=== PATIENT | female | born 1955 | race Caucasian/White ===

== ENCOUNTER → 2016-10-20 | Outpatient (CLI) | payer BC ==
--- NOTE | 2016-10-20 12:14 | MY ---
EXAMINATION: Bilateral digital mammography utilizing CAD. HISTORY: Screening exam. Comparison is made to previous studies dated 09/15/2015, 09/08/2014. FINDINGS: Bilateral scattered fibroglandular densities. No suspicious calcifications, masses or architectural distortions. No pathologic appearing lymph nodes, no abnormal skin thickening or nipple inversion. CAD highlighted regions appear normal at this time. IMPRESSION: BI-RADS category I - negative mammogram. Continued screening according to ACR-ACS guidelines sugg maximilian. THE FALSE-NEGATIVE RATE OF MAMMOGRAM IS APPROXIMATELY 10%. MANAGEMENT OF A PALPABLE ABNORMALITY MUST BE BASED UPON CLINICAL GROUNDS. SENSITIVITY FOR DETECTION OF ABNORMALITIES IN DENSE BREASTS IS LOW. NOTE: A letter will be sent to the patient regarding findings. [facility] -- [place] [phone] - FAX [phone]
== END ==
LOC: MW.MAM 08:44
PROVIDERS: ATTEND Student in an Organized Health Care Education/Training Program
DX: Z12.31 Encounter for screening mammogram for malignant neoplasm of breast (principal); E78.5 Hyperlipidemia, unspecified
CPT/HCPCS: 36415; 80048; 80061; G0202

== ENCOUNTER 2017-04-18 11:29 | Day surgery (SDC) | payer BC ==
[2017-04-18] MEDS ORDERED: Ropivacaine 0.5% 5 MG/ML 30 ML SDV ONE (11:31)
[2017-04-18] MEDS ORDERED: Betamethasone Acetate/Betamethasone Sod Phosphate 30 MG/5 ML MDV ONE (11:31)
[2017-04-18] MEDS ORDERED: Lidocaine 2% 5 ML SDV ONE (11:31)
[2017-04-18] MEDS ORDERED: Iopamidol 408 MG/ML 50 ML SDV ONE (11:32)
--- NOTE | 2017-04-18 20:27 | OR ---
SURGEON: Pilar Abdullahi D.O. DATE OF PROCEDURE: 04/18/2017 OR STAFF PRESENT: 1. Elda Stewart RN. 2. Elda Loyola RN. 3. Mario Alberto RT. WOUND CLASSIFICATION: I. PREOPERATIVE DIAGNOSES: 1. Lumbar degenerative disk disease. 2. Chronic low back pain. POSTOPERATIVE DIAGNOSES: 1. Lumbar degenerative disk disease. 2. Chronic low back pain. PROCEDURES PERFORMED: 1. Caudal epidural steroid injection. 2. Fluoroscopic guidance for needle placement. 3. Local with oral Valium for sedation. SCREENING QUESTIONS: The patient answered "no" to all of the following questions: 1. Are you allergic to latex? 2. Do you have a bleeding disorder? 3. Do you have any current local or systemic infections? 4. Are you taking any anti-inflammatories or blood thinners? 5. Do you have any joint replacements, heart valve replacements, or a pacemaker? DESCRIPTION OF PROCEDURE: The patient had the procedure thoroughly explained including all possible risks, benefits and alternatives. Consent was signed in my clinic indicating understanding and willingness to proceed. The patient presented to [facility] [place] and was escorted to the dressing room to disrobe and change into a hospital gown. Preoperative vital signs were taken and stable. The patient reported that Valium was taken prior to the procedure. The patient was brought back to the procedure room and placed in the prone position on the procedure room table. A pillow was placed under the hips in order to flatten the lumbar lordosis. The back was prepped with ChloraPrep and sterilely draped. All personnel in the operating room were dressed in appropriate attire including surgical scrubs, head and shoe covers. This was to ensure sterility while in the treatment room. During the time fluoroscopy was in use, all personnel in the operating room wore lead ferrell with thyroid collars. Sterile technique was used throughout the procedure. The patient was awake and conversant throughout the procedure. There was no evidence of infection at the site of needle insertion. Skeletal landmarks were identified under fluoroscopy for the caudal epidural. Skin was anesthetized with 2% lidocaine with a sterile 27-gauge 1.5 inch needle. Then a 20-gauge Tuohy epidural needle was placed in the epidural space with loss of resistance technique under fluoroscopic guidance. No heme, cerebrospinal fluid, or paresthesias were noted. Isovue-200 contrast dye was injected in 0.2 cubic centimeter increments and seen to outline the epidural space in both AP and lateral views. There was no intravascular flow pattern observed under live fluoroscopy. Then 12 milligrams of Celestone and then local was slowly injected after negative aspiration. The patient tolerated the procedure well. Vital signs were stable during and after the procedure. The staff escorted the patient to the recovery area and the patient was released in stable condition after a brief stay in the recovery room monitored by the nurse. The patient was given both oral and written discharge and follow up instructions with recommendation to follow up given for 2-3 weeks. The patient voiced understanding including understanding of those signs and symptoms that would require emergency care. The patient knows how to contact the office if there are any additional problems or questions in the meantime. PREOPERATIVE PAIN: 6/10. POSTOPERATIVE PAIN: 0/10. FOLLOWUP: Follow up in the Pain Clinic in 3 weeks. JENNIFER / RIA /[id number] CYRUS
== END 2017-04-18 14:00 | disposition home or self-care (01) ==
LOC: MW.SDS 11:29
PROVIDERS: ATTEND Anesthesiology
DX: G89.29 Other chronic pain (principal); M51.36 Other intervertebral disc degeneration, lumbar region; M43.16 Spondylolisthesis, lumbar region; G62.9 Polyneuropathy, unspecified; F41.9 Anxiety disorder, unspecified; F32.9 Major depressive disorder, single episode, unspecified; M19.90 Unspecified osteoarthritis, unspecified site; I10 Essential (primary) hypertension; E78.00 Pure hypercholesterolemia, unspecified; E78.1 Pure hyperglyceridemia; K58.9 Irritable bowel syndrome, unspecified; I25.2 Old myocardial infarction; Z85.828 Personal history of other malignant neoplasm of skin; Z87.891 Personal history of nicotine dependence; Z88.1 Allergy status to other antibiotic agents; Z79.891 Long term (current) use of opiate analgesic; Z79.899 Other long term (current) drug therapy; Z95.0 Presence of cardiac pacemaker; Z98.49 Cataract extraction status, unspecified eye; Z90.710 Acquired absence of both cervix and uterus; Z90.721 Acquired absence of ovaries, unilateral; Z90.89 Acquired absence of other organs; Z98.890 Other specified postprocedural states; Z00.00 Encounter for general adult medical examination without abnormal findings; M54.5 Low back pain
CPT/HCPCS: 36415; 62323; 80053; 85025; 85610; 85730; J0702; J2795; Q9966

== ENCOUNTER 2017-05-30 16:09 | Observation (INO) | payer BC ==
[2017-05-30] MEDS ORDERED: Sodium Chloride 0.9% 2.5 ML Syringe FLUSH PRN ×2 (16:21→19:35)
[2017-05-30] MEDS ORDERED: Sodium Chloride 0.9% 10 ML Syringe FLUSH PRN ×2 (16:21→19:35)
--- NOTE | 2017-05-30 16:23 | EDM.PDOC ---
ED HPI GENERAL MEDICAL PROBLEM - General Chief Complaint: Respiratory Problem Stated Complaint: PT HAS DIFFICULTY BREATHING Time Seen by Provider: 05/30/17 16:13 Source of Information: Reports: Patient History Limitations: Reports: No Limitations - History of Present Illness INITIAL COMMENTS - FREE TEXT/NARRATIVE: History of present illness: []Patient's had 3 days of worsening symptoms of changes in her heart rate going up and down. A pacemaker and tried to phone in to get it checked but they were unable to check it. Started having chest heaviness today. Patient is very tearful and scared states for the last 3 days she has been feeling more short of breath and extreme weakness where she can't even walk or get out of bed. Review of systems: As per history of present illness and below otherwise all systems reviewed and negative. Past medical history: As per history of present illness and as reviewed below otherwise noncontributory. Surgical history: As per history of present illness and as reviewed below otherwise noncontributory. Social history: No reported history of drug or alcohol abuse. Family history: As per history of present illness and as reviewed below otherwise noncontributory. Physical exam: General: Well developed, well nourished, tearful HEENT: Atraumatic, normocephalic, pupils reactive, negative for conjunctival pallor or scleral icterus, mucous membranes moist, throat clear, neck supple, nontender, trachea midline. Lungs: Clear to auscultation, breath sounds equal bilaterally, chest nontender. Heart: S1S2, regular, negative for clicks, rubs, or JVD. Abdomen: Soft, nondistended, nontender. Negative for masses or hepatosplenomegaly. Negative for costovertebral tenderness. Pelvis: Stable nontender. Genitourinary: Deferred. Rectal: Deferred. Extremities: Atraumatic, negative for cords or calf pain. Neurovascular unremarkable. Neuro: Awake, alert, oriented. Cranial nerves II through XII unremarkable. Cerebellum unremarkable. Motor and sensory unremarkable throughout. Exam nonfocal. Diagnostics: []EKG, labs, chest x-ray initially all negative Therapeutics: []She was given IV Lopressor and PO metoprolol with improvement of blood pressure, heart rate and symptoms Impression: []Acute coronary syndrome Plan: []Admit for observation and rule out MN and have pacemaker checked Definitive disposition and diagnosis as appropriate pending reevaluation and review of above. - Related Data Allergies Allergy/AdvReac Type Severity Reaction Status Date / Time ceftriaxone sodium Allergy Cannot Verified 06/25/15 08:33 [From Rocephin] Remember erythromycin lactobionate Allergy Unknown Verified 06/25/15 08:33 [From Erythrocin] buspirone HCl [From BuSpar] AdvReac Other Verified 06/25/15 08:33 Home Meds: Home Meds ALPRAZolam [Alprazolam] 1 tab PO ASDIRECTED PRN 11/10/14 [History] Cholecalciferol (Vitamin D3) [Vitamin D] 1,000 mg PO DAILY 11/10/14 [History] Lisinopril 1 tab PO DAILY 11/10/14 [History] Metoprolol Succinate 1 tab PO DAILY 11/10/14 [History] amLODIPine Besylate [Amlodipine Besylate] 1 tab PO DAILY 11/10/14 [History] Diclofenac Sodium [Voltaren] 75 mg PO Q6H 06/25/15 [History] Desvenlafaxine Succinate [Pristiq] 100 mg PO DAILY 05/30/17 [History] Past Medical History HEENT History: Reports: None Cardiovascular History: Reports: Pacemaker Respiratory History: Reports: None Gastrointestinal History: Reports: None Genitourinary History: Reports: None Other OB/BYN History: 5 endometriosis surgeries, breast reduction Musculoskeletal History: Reports: None Neurological History: Reports: None Endocrine/Metabolic History: Reports: None Hematologic History: Reports: None Immunologic History: Reports: None Oncologic (Cancer) History: Reports: None Dermatologic History: Reports: None - Infectious Disease History Infectious Disease History: Reports: None - Past Surgical History Head Surgeries/Procedures: Reports: None Respiratory Surgical History: Reports: None GI Surgical History: Reports: None Musculoskeletal Surgical History: Reports: None Social & Family History - Tobacco Use Smoking Status *Q: Never Smoker Second Hand Smoke Exposure: No - Caffeine Use Caffeine Use: Reports: Other - Alcohol Use Days Per Week of Alcohol Use: 0 - Recreational Drug Use Recreational Drug Use: No Drug Use in Last 12 Months: No ED ROS GENERAL - Review of Systems Review Of Systems: See Below (See history of present illness) ED EXAM, GENERAL - Physical Exam Exam: See Below (See history of present illness) Course - Vital Signs Last Recorded V/S: Last Vital Signs Temp 36.3 C 05/31/17 04:00 Pulse 77 05/31/17 04:00 Resp 17 05/31/17 04:00 BP 102/64 05/31/17 04:00 Pulse Ox 94 L 05/31/17 04:00 - Orders/Labs/Meds Orders: Active Orders 24 hr Category Date Time Status EKG Documentation Completion [RC] STAT Care 05/30/17 16:20 Active Sodium Chloride 0.9% [Saline Flush] Med 05/30/17 16:21 Active 10 ml FLUSH ASDIRECTED PRN Sodium Chloride 0.9% [Saline Flush] Med 05/30/17 16:21 Active 2.5 ml FLUSH ASDIRECTED PRN Saline Lock Insert [OM.PC] Stat Oth 05/30/17 16:20 Ordered Medication Orders Acetaminophen (Tylenol) 650 mg PO Q4H PRN PRN Reason: Pain Alprazolam (Xanax) 0.5 mg PO ASDIRECTED PRN PRN Reason: Anxiety Amlodipine Besylate (Norvasc) 10 mg PO DAILY [facility] Aspirin (Aspirin) 325 mg PO DAILY [facility] Heparin Sodium (Porcine) (Heparin Sodium) 5,000 units SUBCUT Q8H [facility] Last Admin: 05/31/17 03:54 Dose: 5,000 units Admin: 05/30/17 20:00 Dose: 5,000 units Lisinopril (Prinivil) 10 mg PO DAILY [facility] Metoprolol Succinate (Toprol Xl) 50 mg PO DAILY [facility] Morphine Sulfate (Morphine) 2 mg IVPUSH Q2H PRN PRN Reason: Pain (severe 7-10) Stop: 05/31/17 19:39 Last Admin: 05/31/17 03:55 Dose: 2 mg Admin: 05/30/17 21:14 Dose: 2 mg Non-Formulary Medication (Cholecalciferol (Vitamin D3) [Vitamin D3]) 1,000 mg PO DAILY [facility] Non-Formulary Medication (Desvenlafaxine Succinate [Pristiq]) 100 mg PO DAILY [facility] Ondansetron HCl (Zofran) 4 mg IVPUSH Q4H PRN PRN Reason: Nausea/Vomiting Sodium Chloride (Saline Flush) 10 ml FLUSH ASDIRECTED PRN PRN Reason: Keep Vein Open Last Admin: 05/30/17 16:55 Dose: 10 ml Sodium Chloride (Saline Flush) 2.5 ml FLUSH ASDIRECTED PRN PRN Reason: Keep Vein Open Last Admin: 05/30/17 16:55 Dose: 2.5 ml Sodium Chloride (Saline Flush) 10 ml FLUSH ASDIRECTED PRN PRN Reason: Keep Vein Open Sodium Chloride (Saline Flush) 2.5 ml FLUSH ASDIRECTED PRN PRN Reason: Keep Vein Open Labs: Laboratory Tests 05/30/17 05/30/17 05/30/17 Range/Units 16:35 16:35 17:29 WBC 7.19 (4.0-11.0) K/uL RBC 5.13 (4.30-5.90) M/uL Hgb 15.9 (12.0-16.0) g/dL Hct 45.0 (36.0-46.0) % MCV 87.7 (80.0-98.0) fL MCH 31.0 (27.0-32.0) pg MCHC 35.3 (31.0-37.0) g/dL RDW Std Deviation 42.3 (28.0-62.0) fl RDW Coeff of Carlos 13 (11.0-15.0) % Plt Count 290 (150-400) K/uL MPV 9.30 (7.40-12.00) fL Neut % (Auto) 68.1 (48.0-80.0) % Lymph % (Auto) 23.9 (16.0-40.0) % Johnson % (Auto) 7.1 (0.0-15.0) % Eos % (Auto) 0.6 (0.0-7.0) % Baso % (Auto) 0.3 (0.0-1.5) % Neut # (Auto) 4.9 (1.4-5.7) K/uL Lymph # (Auto) 1.7 (0.6-2.4) K/uL Johnson # (Auto) 0.5 (0.0-0.8) K/uL Eos # (Auto) 0.0 (0.0-0.7) K/uL Baso # (Auto) 0.0 (0.0-0.1) K/uL Nucleated RBC % 0.0 /100WBC Nucleated RBCs # 0 K/uL Sodium 138 (136-146) mmol/L Potassium 3.6 (3.5-5.1) mmol/L Chloride 106 (98-110) mmol/L Carbon Dioxide 15 L (21-31) mmol/L BUN 14 (6.0-23.0) mg/dL Creatinine 0.7 (0.6-1.5) mg/dL Est Cr Clr Drug Dosing 71.58 mL/min Estimated GFR (MDRD) > 60.0 ml/min Glucose 110 (60-110) mg/dL Calcium 10.0 (8.8-10.8) mg/dL Total Bilirubin 0.5 (0.1-1.5) mg/dL AST 26 (5-40) IU/L ALT 23 (8-54) IU/L Alkaline Phosphatase 64 (40-150) Troponin I < 0.10 (0.0-0.29) NG/ML Total Protein 8.3 H (6.0-8.0) g/dL Albumin 4.5 (3.5-5.0) g/dL Globulin 3.8 H (2.0-3.5) g/dL Albumin/Globulin Ratio 1.2 L (1.3-2.8) Urine Color YELLOW Urine Appearance CLEAR Urine pH 6.0 (5.0-8.0) Ur Specific [place] 1.020 (1.001-1.035) Urine Protein 100 (NEGATIVE) mg/dL Urine Glucose (UA) NEGATIVE (NEGATIVE) mg/dL Urine Ketones >=80 (NEGATIVE) mg/dL Urine Occult Blood SMALL H (NEGATIVE) Urine Nitrite NEGATIVE (NEGATIVE) Urine Bilirubin SMALL H (NEGATIVE) Urine Ictotest NEGATIVE Urine Urobilinogen 0.2 (<2.0) EU/dL Ur Leukocyte Esterase NEGATIVE (NEGATIVE) Urine RBC 0-2 (0-2/HPF) Urine WBC 1-3 (0-5/HPF) Ur Epithelial Cells FEW (NONE-FEW) Urine Bacteria FEW (NEGATIVE) Meds: Medications Generic Name Dose Route Start Last Admin Trade Name Freq PRN Reason Stop Dose Admin Acetaminophen 650 mg 05/31/17 05:02 Tylenol PO Q4H PRN Pain Alprazolam 0.5 mg 05/30/17 19:39 Xanax PO ASDIRECTED PRN Anxiety Amlodipine Besylate 10 mg 05/31/17 09:00 Norvasc PO DAILY [facility] Aspirin 325 mg 05/31/17 20:57 Aspirin PO DAILY [facility] Heparin Sodium (Porcine) 5,000 units 05/30/17 19:00 05/31/17 03:54 Heparin Sodium SUBCUT 5,000 units Q8H [facility] Administration Lisinopril 10 mg 05/31/17 09:00 Prinivil PO DAILY [facility] Metoprolol Succinate 50 mg 05/31/17 09:00 Toprol Xl PO DAILY [facility] Morphine Sulfate 2 mg 05/30/17 19:35 05/31/17 03:55 Morphine IVPUSH 05/31/17 19:39 2 mg Q2H PRN Administration Pain (severe 7-10) Non-Formulary Medication 1,000 mg 05/31/17 09:00 Cholecalciferol (Vitamin D3) [Vitamin D3] PO DAILY [facility] Non-Formulary Medication 100 mg 05/31/17 09:00 Desvenlafaxine Succinate [Pristiq] PO DAILY [facility] Ondansetron HCl 4 mg 05/31/17 05:02 Zofran IVPUSH Q4H PRN Nausea/Vomiting Sodium Chloride 10 ml 05/30/17 16:21 05/30/17 16:55 Saline Flush FLUSH 10 ml ASDIRECTED PRN Administration Keep Vein Open Sodium Chloride 2.5 ml 05/30/17 16:21 05/30/17 16:55 Saline Flush FLUSH 2.5 ml ASDIRECTED PRN Administration Keep Vein Open Sodium Chloride 10 ml 05/30/17 19:35 Saline Flush FLUSH ASDIRECTED PRN Keep Vein Open Sodium Chloride 2.5 ml 05/30/17 19:35 Saline Flush FLUSH ASDIRECTED PRN Keep Vein Open Discontinued Medications Generic Name Dose Route Start Last Admin Trade Name Freq PRN Reason Stop Dose Admin Metoprolol Succinate 25 mg 05/30/17 16:50 05/30/17 16:54 Toprol Xl PO 05/30/17 16:51 25 mg ONETIME ONE Administration Metoprolol Tartrate 5 mg 05/30/17 16:30 05/30/17 16:56 Lopressor IVPUSH 05/30/17 16:41 Not Given Q5M [facility] Departure - Departure Time of Disposition: 18:00 Disposition: Admitted As Inpatient 68 Condition: Good Clinical Impression: Acute coronary syndrome - Discharge Information - My Orders Last 24 Hours: My Active Orders 05/30/17 16:20 EKG Documentation Completion [RC] STAT Saline Lock Insert [OM.PC] Stat 05/30/17 16:21 Sodium Chloride 0.9% [Saline Flush] 10 ml FLUSH ASDIRECTED PRN Sodium Chloride 0.9% [Saline Flush] 2.5 ml FLUSH ASDIRECTED PRN - Assessment/Plan Last 24 Hours: My Active Orders 05/30/17 16:20 EKG Documentation Completion [RC] STAT Saline Lock Insert [OM.PC] Stat 05/30/17 16:21 Sodium Chloride 0.9% [Saline Flush] 10 ml FLUSH ASDIRECTED PRN Sodium Chloride 0.9% [Saline Flush] 2.5 ml FLUSH ASDIRECTED PRN
[2017-05-30] MEDS: Metoprolol Tartrate 5 MG/5 ML SDV IVPUSH SCH ×3 (16:40→16:56)
[2017-05-30] MEDS ORDERED: Metoprolol Succinate 25 MG Tab.ER PO ONE (16:50)
[2017-05-30 17:12] LABS: CHLORIDE,CL 106 mmol/L (98-110); SODIUM,NA 138 mmol/L (136-146)
[2017-05-30] MEDS ORDERED: ALPRAZolam 0.5 MG Tab PO PRN (19:39)
[2017-05-30] MEDS: Heparin Sodium 5,000 Units/ML Vial SUBCUT SCH (20:00)
[2017-05-30] MEDS: Morphine 2 MG/ML Syringe IVPUSH PRN (21:14)
--- NOTE | 2017-05-30 21:29 | PCM.HP ---
H&P History of Present Illness - General Date of Service: 05/30/17 Admit Problem/Dx: Admission Diagnosis/Problem Admission Diagnosis/Problem Chest pain Source of Information: Patient - History of Present Illness Initial Comments - Free Text/Narative: Patient 61 years old female with PMhx of depression , obesity presented to hospital due to Chest pain pressure like localized in the middle of the chest associated with SOB and patient grasping for air. Pain does not change with breathing and is not tender to palpation. Patient also says that her heart rate is going down in the 40' when she has the episodes. This started 3 days ago and today she came to ER. Her chest pressure was moderate intensity , did not irradiate. She was treated for back pain with opioid medication for 1 month and stopped the medication 3-5 days ago .She is also on ketogenic diet and lost about 20 lbs over the last month. About one month ago her antidepressant medication was changed to Pristique Onset of Symptoms: Reports: Gradual Duration of Symptoms: Reports: Day(s): Quality: Reports: Pressure - Related Data Allergies/Adverse Reactions: Allergies Allergy/AdvReac Type Severity Reaction Status Date / Time ceftriaxone sodium Allergy Cannot Verified 06/25/15 08:33 [From Rocephin] Remember erythromycin lactobionate Allergy Unknown Verified 06/25/15 08:33 [From Erythrocin] buspirone HCl [From BuSpar] AdvReac Other Verified 06/25/15 08:33 Home Medications: Home Meds ALPRAZolam [Alprazolam] 1 tab PO ASDIRECTED PRN 11/10/14 [History] Cholecalciferol (Vitamin D3) [Vitamin D] 1,000 mg PO DAILY 11/10/14 [History] Lisinopril 1 tab PO DAILY 11/10/14 [History] Metoprolol Succinate 1 tab PO DAILY 11/10/14 [History] amLODIPine Besylate [Amlodipine Besylate] 1 tab PO DAILY 11/10/14 [History] Diclofenac Sodium [Voltaren] 75 mg PO Q6H 06/25/15 [History] Desvenlafaxine Succinate [Pristiq] 100 mg PO DAILY 05/30/17 [History] Past Medical History HEENT History: Reports: Cataract, Other (See Below) Other HEENT History: Iritis Cardiovascular History: Reports: Pacemaker Respiratory History: Reports: None Gastrointestinal History: Reports: None Genitourinary History: Reports: None Other OB/BYN History: X 5 endometriosis surgeries, breast reduction Musculoskeletal History: Reports: None Neurological History: Reports: Migraines Psychiatric History: Reports: Anxiety, Depression Endocrine/Metabolic History: Reports: None Hematologic History: Reports: None Immunologic History: Reports: None Oncologic (Cancer) History: Reports: Squamous Cell Carcinoma Dermatologic History: Reports: Other (See Below) Other Dermatologic History: Skin CA, squamous cell - Infectious Disease History Infectious Disease History: Reports: None - Past Surgical History Head Surgeries/Procedures: Reports: None HEENT Surgical History: Reports: None Cardiovascular Surgical History: Reports: None Respiratory Surgical History: Reports: None GI Surgical History: Reports: None Musculoskeletal Surgical History: Reports: None Social & Family History - Family History Family Medical History: Noncontributory - Tobacco Use Smoking Status *Q: Never Smoker Second Hand Smoke Exposure: No - Caffeine Use Caffeine Use: Reports: None - Alcohol Use Days Per Week of Alcohol Use: 0 - Recreational Drug Use Recreational Drug Use: No Drug Use in Last 12 Months: No H&P Review of Systems - Review of Systems: Review Of Systems: See Below General: Reports: Weight Loss HEENT: Reports: No Symptoms Pulmonary: Reports: Shortness of Breath Cardiovascular: Reports: Chest Pain Gastrointestinal: Reports: No Symptoms Genitourinary: Reports: No Symptoms Musculoskeletal: Reports: Back Pain Skin: Reports: No Symptoms Psychiatric: Reports: No Symptoms Neurological: Reports: No Symptoms Exam - Exam Exam: See Below - Vital Signs Vital Signs: Last Vital Signs Temp 97.5 F 05/30/17 20:00 Pulse 96 05/30/17 20:00 Resp 16 05/30/17 20:00 BP 146/74 H 05/30/17 20:00 Pulse Ox 97 05/30/17 20:00 Weight: 215 lb 8 oz - Exam General: Alert, Oriented HEENT: Conjunctiva Clear Neck: Supple, Trachea Midline Lungs: Clear to Auscultation Cardiovascular: Regular Rate, Regular Rhythm, Normal S1, Normal S2 GI/Abdominal Exam: Normal Bowel Sounds, Soft, Non-Tender, No Organomegaly, No Distention, No Abnormal Bruit (Female) Exam: Normal External Exam Rectal (Female) Exam: Normal Exam Psychiatric: Alert, Normal Affect, Normal Mood - Patient Data Result Diagrams: 05/30/17 16:35 05/30/17 16:35 EKG INTERPRETATION EKG Interpretation Comments: paced rhythm at 79 *Q Meaningful Use (ADM) - VTE *Q VTE Criteria *Q: - Stroke *Q Stroke Criteria *Q: - AMI *Q AMI Criteria *Q: - Problem List (1) Chest pain SNOMED Code(s): 07936283 ICD Code: R07.9 - CHEST PAIN, UNSPECIFIED Status: Acute Current Visit: Yes (2) SOB (shortness of breath) SNOMED Code(s): 992756665 ICD Code: R06.02 - SHORTNESS OF BREATH Status: Acute Current Visit: Yes Problem List Initiated/Reviewed/Updated: Yes Orders Last 24hrs: Active Orders 24 hr Category Date Time Status Patient Status [ADT] Routine ADT 05/30/17 19:35 Active Antiembolic Devices [RC] PER UNIT ROUTINE Care 05/30/17 19:37 Active Oxygen Therapy [RC] PRN Care 05/30/17 19:35 Active Pulse Oximetry [RC] PRN Care 05/30/17 19:37 Active Telemetry Monitoring [Cardiac Monitoring] [RC] . Care 05/30/17 19:40 Active DIRECTED VTE/DVT Education [RC] PER UNIT ROUTINE Care 05/30/17 19:35 Active Vital Signs [RC] Q4H Care 05/30/17 19:35 Active 2 Gram Sodium Diet [DIET] Diet 05/30/17 Dinner Active ABG [BLOOD GAS ARTERIAL] [BG] Routine Lab 05/30/17 19:35 Ordered CBC W/O DIFF,HEMOGRAM [HEME] AM Lab 05/31/17 05:11 Ordered CBC W/O DIFF,HEMOGRAM [HEME] AM Lab 06/01/17 05:11 Ordered CBC W/O DIFF,HEMOGRAM [HEME] AM Lab 06/02/17 05:11 Ordered CBC W/O DIFF,HEMOGRAM [HEME] AM Lab 06/03/17 05:11 Ordered COMPREHENSIVE METABOLIC PN,CMP [CHEM] AM Lab 05/31/17 05:11 Ordered COMPREHENSIVE METABOLIC PN,CMP [CHEM] AM Lab 06/01/17 05:11 Ordered COMPREHENSIVE METABOLIC PN,CMP [CHEM] AM Lab 06/02/17 05:11 Ordered COMPREHENSIVE METABOLIC PN,CMP [CHEM] AM Lab 06/03/17 05:11 Ordered LIPID PANEL [CHEM] Routine Lab 05/31/17 05:10 Ordered TROPONIN I [CHEM] Q6H Lab 05/30/17 22:00 Ordered TROPONIN I [CHEM] Q6H Lab 05/31/17 04:00 Ordered ALPRAZolam [Xanax] Med 05/30/17 19:39 Pending 0.5 mg PO ASDIRECTED PRN Aspirin Med 05/31/17 20:57 Active 325 mg PO DAILY Cholecalciferol (Vitamin D3) [Vitamin D3] Med 05/31/17 09:00 Pending 1,000 mg PO DAILY Desvenlafaxine Succinate [Pristiq] Med 05/31/17 09:00 Pending 100 mg PO DAILY Heparin Sodium Med 05/30/17 19:00 Active 5,000 units SUBCUT Q8H Lisinopril [Prinivil] Med 05/31/17 09:00 Active 10 mg PO DAILY Metoprolol Succinate [Toprol XL] Med 05/31/17 09:00 Active 50 mg PO DAILY Morphine Med 05/30/17 19:35 Active 2 mg IVPUSH Q2H PRN Sodium Chloride 0.9% [Saline Flush] Med 05/30/17 19:35 Active 10 ml FLUSH ASDIRECTED PRN Sodium Chloride 0.9% [Saline Flush] Med 05/30/17 19:35 Active 2.5 ml FLUSH ASDIRECTED PRN amLODIPine [Norvasc] Med 05/31/17 09:00 Active 10 mg PO DAILY Peripheral IV Insertion Adult [OM.PC] Routine Oth 05/30/17 19:35 Ordered Sequential Compression Device [OM.PC] Per Unit Routine Oth 05/30/17 19:37 Ordered Resuscitation Status Routine Resus Stat 05/30/17 19:35 Ordered Medication Orders Alprazolam (Xanax) 0.5 mg PO ASDIRECTED PRN PRN Reason: Anxiety Amlodipine Besylate (Norvasc) 10 mg PO DAILY [facility] Aspirin (Aspirin) 325 mg PO DAILY [facility] Heparin Sodium (Porcine) (Heparin Sodium) 5,000 units SUBCUT Q8H [facility] Last Admin: 05/30/17 20:00 Dose: 5,000 units Lisinopril (Prinivil) 10 mg PO DAILY [facility] Metoprolol Succinate (Toprol Xl) 50 mg PO DAILY [facility] Morphine Sulfate (Morphine) 2 mg IVPUSH Q2H PRN PRN Reason: Pain (severe 7-10) Stop: 11/29/17 19:39 Last Admin: 05/30/17 21:14 Dose: 2 mg Non-Formulary Medication (Cholecalciferol (Vitamin D3) [Vitamin D3]) 1,000 mg PO DAILY [facility] Non-Formulary Medication (Desvenlafaxine Succinate [Pristiq]) 100 mg PO DAILY [facility] Sodium Chloride (Saline Flush) 10 ml FLUSH ASDIRECTED PRN PRN Reason: Keep Vein Open Last Admin: 05/30/17 16:55 Dose: 10 ml Sodium Chloride (Saline Flush) 2.5 ml FLUSH ASDIRECTED PRN PRN Reason: Keep Vein Open Last Admin: 05/30/17 16:55 Dose: 2.5 ml Sodium Chloride (Saline Flush) 10 ml FLUSH ASDIRECTED PRN PRN Reason: Keep Vein Open Sodium Chloride (Saline Flush) 2.5 ml FLUSH ASDIRECTED PRN PRN Reason: Keep Vein Open Assessment/Plan Comment:: C/p r/o ACS - will admit patient to telemetry , will f/up 3 sets of cardiac enzymes, lipid profile in am , pacemaker interrogation. For Depression will continue patient with Pristique as per home reconciliation HTN - controlled- continue patient with Metoprolol , lisinopril and amlodipine as per home reconciliation. DVT prof - heparin sq
[2017-05-31] MEDS: Heparin Sodium 5,000 Units/ML Vial SUBCUT SCH ×2 (03:54→10:04)
[2017-05-31] MEDS: Morphine 2 MG/ML Syringe IVPUSH PRN (03:55)
[2017-05-31 04:24] LABS: CHLORIDE,CL 108 mmol/L (98-110); SODIUM,NA 141 mmol/L (136-146)
[2017-05-31] MEDS ORDERED: Ondansetron 4 MG/2 ML SDV IVPUSH PRN (05:02)
[2017-05-31] MEDS ORDERED: Acetaminophen 325 MG Tab PO PRN (05:02)
[2017-05-31] MEDS ORDERED: PRISTIQ 100 MG PO SCH (09:00)
[2017-05-31] MEDS ORDERED: amLODIPine 5 MG Tab PO SCH (09:00)
[2017-05-31] MEDS ORDERED: Cholecalciferol (Vitamin D3) 1,000 Unit Tab PO SCH (09:00)
[2017-05-31] MEDS ORDERED: Metoprolol Succinate 50 MG Tab.ER PO SCH (09:00)
[2017-05-31] MEDS ORDERED: Lisinopril 10 MG Tab PO SCH (09:00)
[2017-05-31] MEDS ORDERED: Potassium Chloride 20 MEQ Tab.ER PO ONE (12:09)
[2017-05-31 12:29] VITALS: BP 131/65
--- NOTE | 2017-05-31 12:29 | CT ---
EXAMINATION: CTA chest HISTORY: Rule out PE COMPARISON: None TECHNIQUE: Axial CT images obtained through the chest following the administration of 50 mL of Isovue -370 in the right antecubital fossa. Coronal and sagittal reconstructions obtained. FINDINGS: The lungs are clear without focal consolidation. No pleural effusion or pneumothorax. Mild dependent atelectasis. Nonpathologically enlarged mediastinal and hilar lymph nodes are noted. The th oracic aorta is normal in caliber. The heart is normal in size without pericardial effusion. The main and central pulmonary arteries are patent without an identified pulmonary embolism. Central airways are clear. There is a 2 cm left thyroid nodule noted. There is a left-sided pacemaker. No suspicious osseous abnormalities of the heart. IMPRESSION: 1. No acute cardiopulmonary finding or pulmonary embolism identified. 2. The 2 cm left thyroid nodule noted, correlate with ultrasound or previous imaging.
--- NOTE | 2017-05-31 12:39 | PCM.PN ---
<Ese Barkley - Last Filed: 05/31/17 12:49> - General Info Date of Service: 05/31/17 - Review of Systems General: Reports: No Symptoms HEENT: Reports: No Symptoms Pulmonary: Reports: Shortness of Breath, Pleuritic Chest Pain, Other (when ambulating) Cardiovascular: Reports: No Symptoms Gastrointestinal: Reports: No Symptoms Musculoskeletal: Reports: No Symptoms Skin: Reports: No Symptoms Neurological: Reports: No Symptoms Psychiatric: Reports: No Symptoms - Patient Data Vitals - Most Recent: Last Vital Signs Temp 98.2 F 05/31/17 12:00 Pulse 82 05/31/17 12:00 Resp 16 05/31/17 12:00 BP 131/65 05/31/17 12:00 Pulse Ox 94 L 05/31/17 12:00 Weight - Most Recent: 215 lb 8 oz I&O - Last 24 Hours: Intake & Output 05/30/17 05/31/17 05/31/17 22:59 06:59 14:59 Intake Total 400 Output Total 250 Balance 150 Lab Results Last 24 Hours: Laboratory Results - last 24 hr 05/30/17 05/30/17 05/31/17 Range/Units 21:43 21:43 03:50 WBC 6.33 (4.0-11.0) K/uL RBC 4.84 (4.30-5.90) M/uL Hgb 14.9 (12.0-16.0) g/dL Hct 42.9 (36.0-46.0) % MCV 88.6 (80.0-98.0) fL MCH 30.8 (27.0-32.0) pg MCHC 34.7 (31.0-37.0) g/dL RDW Std Deviation 43.2 (28.0-62.0) fl RDW Coeff of Carlos 14 (11.0-15.0) % Plt Count 287 (150-400) K/uL MPV 9.30 (7.40-12.00) fL Nucleated RBC % 0.0 /100WBC Nucleated RBCs # 0 K/uL D-Dimer, Quantitative (0.0-0.52) mg/LFEU Sodium (136-146) mmol/L Potassium (3.5-5.1) mmol/L Chloride (98-110) mmol/L Carbon Dioxide (21-31) mmol/L BUN (6.0-23.0) mg/dL Creatinine (0.6-1.5) mg/dL Est Cr Clr Drug Dosing mL/min Estimated GFR (MDRD) ml/min Glucose (60-110) mg/dL Calcium (8.8-10.8) mg/dL Total Bilirubin (0.1-1.5) mg/dL AST (5-40) IU/L ALT (8-54) IU/L Alkaline Phosphatase (40-150) Troponin I < 0.10 (0.0-0.29) NG/ML B-Natriuretic Peptide 125 H (<100) PG/ML Total Protein (6.0-8.0) g/dL Albumin (3.5-5.0) g/dL Globulin (2.0-3.5) g/dL Albumin/Globulin Ratio (1.3-2.8) Triglycerides (10-190) mg/dL Cholesterol (131-240) mg/dL LDL Cholesterol, Calc (60-180) mg/dL VLDL Cholesterol (5-55) mg/dL HDL Cholesterol (40-80) mg/dL Cholesterol/HDL Ratio (3.3-6.0) 05/31/17 05/31/17 05/31/17 Range/Units 03:50 03:50 10:16 WBC (4.0-11.0) K/uL RBC (4.30-5.90) M/uL Hgb (12.0-16.0) g/dL Hct (36.0-46.0) % MCV (80.0-98.0) fL MCH (27.0-32.0) pg MCHC (31.0-37.0) g/dL RDW Std Deviation (28.0-62.0) fl RDW Coeff of Carlos (11.0-15.0) % Plt Count (150-400) K/uL MPV (7.40-12.00) fL Nucleated RBC % /100WBC Nucleated RBCs # K/uL D-Dimer, Quantitative 0.86 H (0.0-0.52) mg/LFEU Sodium 141 (136-146) mmol/L Potassium 3.2 L (3.5-5.1) mmol/L Chloride 108 (98-110) mmol/L Carbon Dioxide 20 L (21-31) mmol/L BUN 16 (6.0-23.0) mg/dL Creatinine 0.7 (0.6-1.5) mg/dL Est Cr Clr Drug Dosing 71.58 mL/min Estimated GFR (MDRD) > 60.0 ml/min Glucose 122 H (60-110) mg/dL Calcium 9.2 (8.8-10.8) mg/dL Total Bilirubin 0.4 (0.1-1.5) mg/dL AST 21 (5-40) IU/L ALT 21 (8-54) IU/L Alkaline Phosphatase 60 (40-150) Troponin I < 0.10 (0.0-0.29) NG/ML B-Natriuretic Peptide (<100) PG/ML Total Protein 7.0 (6.0-8.0) g/dL Albumin 4.1 (3.5-5.0) g/dL Globulin 2.9 (2.0-3.5) g/dL Albumin/Globulin Ratio 1.4 (1.3-2.8) Triglycerides 155 (10-190) mg/dL Cholesterol 300 H (131-240) mg/dL LDL Cholesterol, Calc 228 H (60-180) mg/dL VLDL Cholesterol 31 (5-55) mg/dL HDL Cholesterol 41 (40-80) mg/dL Cholesterol/HDL Ratio 7.3 H (3.3-6.0) Med Orders - Current: Current Medications Acetaminophen (Tylenol) 650 mg PO Q4H PRN PRN Reason: Pain Last Admin: 05/31/17 09:27 Dose: 650 mg Alprazolam (Xanax) 0.5 mg PO DAILY PRN PRN Reason: Anxiety Amlodipine Besylate (Norvasc) 10 mg PO DAILY [facility] Last Admin: 05/31/17 09:00 Dose: 10 mg Aspirin (Aspirin) 325 mg PO DAILY [facility] Atorvastatin Calcium (Lipitor) 10 mg PO BEDTIME [facility] Cholecalciferol (Vitamin D3) 1,000 units PO DAILY [facility] Last Admin: 05/31/17 09:00 Dose: 1,000 units Heparin Sodium (Porcine) (Heparin Sodium) 5,000 units SUBCUT Q8H [facility] Last Admin: 05/31/17 10:04 Dose: 5,000 units Lisinopril (Prinivil) 10 mg PO DAILY [facility] Last Admin: 05/31/17 09:00 Dose: 10 mg Metoprolol Succinate (Toprol Xl) 50 mg PO DAILY [facility] Last Admin: 05/31/17 09:00 Dose: 50 mg Morphine Sulfate (Morphine) 2 mg IVPUSH Q2H PRN PRN Reason: Pain (severe 7-10) Stop: 05/31/17 19:39 Last Admin: 05/31/17 03:55 Dose: 2 mg Ondansetron HCl (Zofran) 4 mg IVPUSH Q4H PRN PRN Reason: Nausea/Vomiting Pantoprazole Sodium (Protonix) 40 mg PO ACBREAKFAST [facility] Pristiq 100 Mg 1 each PO DAILY [facility] Last Admin: 05/31/17 09:01 Dose: Not Given Sodium Chloride (Saline Flush) 10 ml FLUSH ASDIRECTED PRN PRN Reason: Keep Vein Open Last Admin: 05/30/17 16:55 Dose: 10 ml Sodium Chloride (Saline Flush) 2.5 ml FLUSH ASDIRECTED PRN PRN Reason: Keep Vein Open Last Admin: 05/30/17 16:55 Dose: 2.5 ml Sodium Chloride (Saline Flush) 10 ml FLUSH ASDIRECTED PRN PRN Reason: Keep Vein Open Sodium Chloride (Saline Flush) 2.5 ml FLUSH ASDIRECTED PRN PRN Reason: Keep Vein Open Discontinued Medications Metoprolol Succinate (Toprol Xl) 25 mg PO ONETIME ONE Stop: 05/30/17 16:51 Last Admin: 05/30/17 16:54 Dose: 25 mg Metoprolol Tartrate (Lopressor) 5 mg IVPUSH Q5M [facility] Stop: 05/30/17 16:41 Last Admin: 05/30/17 16:56 Dose: Not Given Potassium Chloride (Klor-Con M20) 40 meq PO ONETIME ONE Stop: 05/31/17 12:10 Last Admin: 05/31/17 12:19 Dose: 40 meq - Exam General: Alert, Oriented HEENT: Pupils Equal, EOMI Neck: Supple Lungs: Rhonchi Cardiovascular: Regular Rate, Regular Rhythm GI/Abdominal Exam: Normal Bowel Sounds Back Exam: Normal Inspection Skin: Warm, Dry, Intact Neurological: No New Focal Deficit Psy/Mental Status: Alert, Normal Affect, Normal Mood - Problem List Review Problem List Initiated/Reviewed/Updated: Yes - Plan Plan:: CP/SOB: Elevated d-dimer 0.86. CT angio performed today is negative PE Hypokalemia: replaced K today HTN - controlled- continue patient with Metoprolol , lisinopril and amlodipine Hyperlipidemia: increase lipitor to 20 mg PO QHS DVT prof - heparin sq <Jocelin Grimaldo - Last Filed: 05/31/17 18:30> - Patient Data Vitals - Most Recent: Last Vital Signs Temp 98.2 F 05/31/17 12:00 Pulse 82 05/31/17 12:00 Resp 16 05/31/17 12:00 BP 131/65 05/31/17 12:00 Pulse Ox 94 L 05/31/17 12:00 I&O - Last 24 Hours: Intake & Output 05/31/17 05/31/17 05/31/17 06:59 14:59 22:59 Intake Total 400 300 Output Total 250 0 Balance 150 300 Lab Results Last 24 Hours: Laboratory Results - last 24 hr 05/30/17 05/30/17 05/31/17 Range/Units 21:43 21:43 03:50 WBC 6.33 (4.0-11.0) K/uL RBC 4.84 (4.30-5.90) M/uL Hgb 14.9 (12.0-16.0) g/dL Hct 42.9 (36.0-46.0) % MCV 88.6 (80.0-98.0) fL MCH 30.8 (27.0-32.0) pg MCHC 34.7 (31.0-37.0) g/dL RDW Std Deviation 43.2 (28.0-62.0) fl RDW Coeff of Carlos 14 (11.0-15.0) % Plt Count 287 (150-400) K/uL MPV 9.30 (7.40-12.00) fL Nucleated RBC % 0.0 /100WBC Nucleated RBCs # 0 K/uL D-Dimer, Quantitative (0.0-0.52) mg/LFEU Sodium (136-146) mmol/L Potassium (3.5-5.1) mmol/L Chloride (98-110) mmol/L Carbon Dioxide (21-31) mmol/L BUN (6.0-23.0) mg/dL Creatinine (0.6-1.5) mg/dL Est Cr Clr Drug Dosing mL/min Estimated GFR (MDRD) ml/min Glucose (60-110) mg/dL Calcium (8.8-10.8) mg/dL Total Bilirubin (0.1-1.5) mg/dL AST (5-40) IU/L ALT (8-54) IU/L Alkaline Phosphatase (40-150) Troponin I < 0.10 (0.0-0.29) NG/ML B-Natriuretic Peptide 125 H (<100) PG/ML Total Protein (6.0-8.0) g/dL Albumin (3.5-5.0) g/dL Globulin (2.0-3.5) g/dL Albumin/Globulin Ratio (1.3-2.8) Triglycerides (10-190) mg/dL Cholesterol (131-240) mg/dL LDL Cholesterol, Calc (60-180) mg/dL VLDL Cholesterol (5-55) mg/dL HDL Cholesterol (40-80) mg/dL Cholesterol/HDL Ratio (3.3-6.0) 05/31/17 05/31/17 05/31/17 Range/Units 03:50 03:50 10:16 WBC (4.0-11.0) K/uL RBC (4.30-5.90) M/uL Hgb (12.0-16.0) g/dL Hct (36.0-46.0) % MCV (80.0-98.0) fL MCH (27.0-32.0) pg MCHC (31.0-37.0) g/dL RDW Std Deviation (28.0-62.0) fl RDW Coeff of Carlos (11.0-15.0) % Plt Count (150-400) K/uL MPV (7.40-12.00) fL Nucleated RBC % /100WBC Nucleated RBCs # K/uL D-Dimer, Quantitative 0.86 H (0.0-0.52) mg/LFEU Sodium 141 (136-146) mmol/L Potassium 3.2 L (3.5-5.1) mmol/L Chloride 108 (98-110) mmol/L Carbon Dioxide 20 L (21-31) mmol/L BUN 16 (6.0-23.0) mg/dL Creatinine 0.7 (0.6-1.5) mg/dL Est Cr Clr Drug Dosing 71.58 mL/min Estimated GFR (MDRD) > 60.0 ml/min Glucose 122 H (60-110) mg/dL Calcium 9.2 (8.8-10.8) mg/dL Total Bilirubin 0.4 (0.1-1.5) mg/dL AST 21 (5-40) IU/L ALT 21 (8-54) IU/L Alkaline Phosphatase 60 (40-150) Troponin I < 0.10 (0.0-0.29) NG/ML B-Natriuretic Peptide (<100) PG/ML Total Protein 7.0 (6.0-8.0) g/dL Albumin 4.1 (3.5-5.0) g/dL Globulin 2.9 (2.0-3.5) g/dL Albumin/Globulin Ratio 1.4 (1.3-2.8) Triglycerides 155 (10-190) mg/dL Cholesterol 300 H (131-240) mg/dL LDL Cholesterol, Calc 228 H (60-180) mg/dL VLDL Cholesterol 31 (5-55) mg/dL HDL Cholesterol 41 (40-80) mg/dL Cholesterol/HDL Ratio 7.3 H (3.3-6.0) Med Orders - Current: Current Medications Discontinued Medications Acetaminophen (Tylenol) 650 mg PO Q4H PRN PRN Reason: Pain Last Admin: 05/31/17 09:27 Dose: 650 mg Alprazolam (Xanax) 0.5 mg PO DAILY PRN PRN Reason: Anxiety Amlodipine Besylate (Norvasc) 10 mg PO DAILY [facility] Last Admin: 05/31/17 09:00 Dose: 10 mg Aspirin (Aspirin) 325 mg PO DAILY [facility] Atorvastatin Calcium (Lipitor) 10 mg PO BEDTIME [facility] Atorvastatin Calcium (Lipitor) 20 mg PO BEDTIME [facility] Cholecalciferol (Vitamin D3) 1,000 units PO DAILY [facility] Last Admin: 05/31/17 09:00 Dose: 1,000 units Heparin Sodium (Porcine) (Heparin Sodium) 5,000 units SUBCUT Q8H [facility] Last Admin: 05/31/17 10:04 Dose: 5,000 units Lisinopril (Prinivil) 10 mg PO DAILY [facility] Last Admin: 05/31/17 09:00 Dose: 10 mg Metoprolol Succinate (Toprol Xl) 25 mg PO ONETIME ONE Stop: 05/30/17 16:51 Last Admin: 05/30/17 16:54 Dose: 25 mg Metoprolol Succinate (Toprol Xl) 50 mg PO DAILY [facility] Last Admin: 05/31/17 09:00 Dose: 50 mg Metoprolol Tartrate (Lopressor) 5 mg IVPUSH Q5M [facility] Stop: 05/30/17 16:41 Last Admin: 05/30/17 16:56 Dose: Not Given Morphine Sulfate (Morphine) 2 mg IVPUSH Q2H PRN PRN Reason: Pain (severe 7-10) Stop: 05/31/17 19:39 Last Admin: 05/31/17 03:55 Dose: 2 mg Ondansetron HCl (Zofran) 4 mg IVPUSH Q4H PRN PRN Reason: Nausea/Vomiting Pantoprazole Sodium (Protonix) 40 mg PO ACBREAKFAST [facility] Pristiq 100 Mg 1 each PO DAILY [facility] Last Admin: 05/31/17 09:01 Dose: Not Given Potassium Chloride (Klor-Con M20) 40 meq PO ONETIME ONE Stop: 05/31/17 12:10 Last Admin: 05/31/17 12:19 Dose: 40 meq Sodium Chloride (Saline Flush) 10 ml FLUSH ASDIRECTED PRN PRN Reason: Keep Vein Open Last Admin: 05/30/17 16:55 Dose: 10 ml Sodium Chloride (Saline Flush) 2.5 ml FLUSH ASDIRECTED PRN PRN Reason: Keep Vein Open Last Admin: 05/30/17 16:55 Dose: 2.5 ml Sodium Chloride (Saline Flush) 10 ml FLUSH ASDIRECTED PRN PRN Reason: Keep Vein Open Sodium Chloride (Saline Flush) 2.5 ml FLUSH ASDIRECTED PRN PRN Reason: Keep Vein Open - Problem List & Annotations (1) Chest pain SNOMED Code(s): 31411322 Code(s): R07.9 - CHEST PAIN, UNSPECIFIED Status: Acute (2) SOB (shortness of breath) SNOMED Code(s): 723510270 Code(s): R06.02 - SHORTNESS OF BREATH Status: Acute (3) Hyperlipidemia LDL goal <100 SNOMED Code(s): 23670461 Code(s): E78.5 - HYPERLIPIDEMIA, UNSPECIFIED Status: Acute (4) Obesity (BMI 35.0-39.9 without comorbidity) SNOMED Code(s): 050493618 Code(s): E66.9 - OBESITY, UNSPECIFIED Status: Acute - My Orders Last 24 Hours: My Active Orders 05/30/17 19:35 Patient Status [ADT] Routine Oxygen Therapy [RC] PRN VTE/DVT Education [RC] PER UNIT ROUTINE Vital Signs [RC] Q4H Peripheral IV Insertion Adult [OM.PC] Routine Resuscitation Status Routine 05/30/17 19:37 Antiembolic Devices [RC] PER UNIT ROUTINE Pulse Oximetry [RC] PRN Sequential Compression Device [OM.PC] Per Unit Routine 05/30/17 19:40 Telemetry Monitoring [Cardiac Monitoring] [RC] Q8H 05/31/17 14:05 Ready for Discharge [RC] PER UNIT ROUTINE 05/31/17 14:27 Examining Chair Assembler Discontinue [Cardiac Monitoring Discontinue] [RC] Click to Edit - Plan Plan:: Patient sen and examined , renata resident. Agree with assessment and plan.
[2017-05-31] MEDS ORDERED: Aspirin 325 MG Tab PO SCH (20:57)
[2017-05-31] MEDS ORDERED: atorvaSTATin 20 MG Tab PO SCH (21:00)
[2017-05-31] MEDS ORDERED: atorvaSTATin 10 MG Tab PO SCH (21:00)
[2017-06-01] MEDS ORDERED: Pantoprazole 40 MG Tab.CR PO SCH (07:30)
== END 2017-05-31 15:02 | disposition home or self-care (01) ==
LOC: MW.ED 16:09 → MW.MS 17:50
PROVIDERS: ADMIT Internal Medicine; ATTEND Internal Medicine
DX: R07.89 Other chest pain (principal); R06.02 Shortness of breath; F32.9 Major depressive disorder, single episode, unspecified; F41.9 Anxiety disorder, unspecified; M54.9 Dorsalgia, unspecified; I10 Essential (primary) hypertension; E78.5 Hyperlipidemia, unspecified; E66.9 Obesity, unspecified; Z68.35 Body mass index [BMI] 35.0-35.9, adult; Z88.1 Allergy status to other antibiotic agents; Z88.8 Allergy status to other drugs, medicaments and biological substances; Z79.1 Long term (current) use of non-steroidal anti-inflammatories (NSAID); Z79.899 Other long term (current) drug therapy; Z95.0 Presence of cardiac pacemaker; Z85.820 Personal history of malignant melanoma of skin
CPT/HCPCS: 36415; 71275; 80053; 80061; 81001; 83880; 84484; 85025; 85027; 85379; 93005; 96374; 99285; A9270; J1644; J2270; 96372; 96375; 96376; 99283; G0378

== ENCOUNTER 2017-11-22 05:50 | Observation (INO) | payer OTHER ==
[2017-11-22] MEDS ORDERED: Sodium Chloride 0.9% 1,000 ML IV ONE (06:04)
[2017-11-22] MEDS ORDERED: Ondansetron 4 MG/2 ML SDV IVPUSH ONE (06:04)
--- NOTE | 2017-11-22 06:05 | EDM.PDOC ---
<IsabelAc Osman - Last Filed: 11/22/17 09:36> ED HPI GENERAL MEDICAL PROBLEM - General Chief Complaint: Abdominal Pain Stated Complaint: RECTAL BLEEDING, BACK PAIN Time Seen by Provider: 11/22/17 06:04 - History of Present Illness INITIAL COMMENTS - FREE TEXT/NARRATIVE: Patient emergently murmur corset unremarkable CT of her abdomen was unremarkable as were her labs with the exception of GFR 43 patient continues to have some discomfort and will be admitted for observation I discussed case with hospitalist who graciously accepted patient for admission for observation Abdomen Pain Score (Numeric/FACES): 8 - Related Data Allergies Allergy/AdvReac Type Severity Reaction Status Date / Time ceftriaxone sodium Allergy Cannot Verified 11/22/17 06:06 [From Rocephin] Remember erythromycin lactobionate Allergy Unknown Verified 11/22/17 06:06 [From Erythrocin] buspirone HCl [From BuSpar] AdvReac Other Verified 11/22/17 06:06 Home Meds: Home Meds ALPRAZolam [Alprazolam] 0.5 - 1 mg PO DAILY PRN 11/10/14 [History] amLODIPine Besylate [Amlodipine Besylate] 10 mg PO DAILY 11/10/14 [History] Desvenlafaxine Succinate [Pristiq] 100 mg PO DAILY 05/30/17 [History] Orphenadrine [Norflex] 100 mg PO BID PRN 05/31/17 [History] Pantoprazole Sodium 40 mg PO ACBREAKFAST 05/31/17 [History] atorvaSTATin [Lipitor] 20 mg PO BEDTIME #30 tablet 05/31/17 [Rx] Aspirin 81 mg PO DAILY 11/22/17 [History] Butalb/Acetaminophen/Caffeine [Ffolip-Sorrcgyn-Hjfx 50-300-40] 1 - 2 cap PO Q4H PRN 11/22/17 [History] Lisinopril 40 mg PO DAILY 11/22/17 [History] Metoprolol Succinate 200 mg PO DAILY 11/22/17 [History] QUEtiapine [SEROquel] 150 mg PO BEDTIME 11/22/17 [History] Spironolactone [Aldactone] 25 mg PO DAILY 11/22/17 [History] ED ROS GENERAL - Review of Systems Review Of Systems: ROS reveals no pertinent complaints other than HPI. ED EXAM, GENERAL - Physical Exam Exam: See Below (See dictation) Course - Vital Signs Last Recorded V/S: Last Vital Signs Temp 98.2 F 11/24/17 04:00 Pulse 76 11/24/17 04:00 Resp 19 11/24/17 04:00 BP 116/62 11/24/17 04:00 Pulse Ox 97 11/24/17 04:00 - Orders/Labs/Meds Orders: Medication Orders Alprazolam (Xanax) 0.5 mg PO DAILY PRN PRN Reason: Anxiety Amlodipine Besylate (Norvasc) 10 mg PO DAILY [facility] Last Admin: 11/23/17 09:14 Dose: Atorvastatin Calcium (Lipitor) 20 mg PO BEDTIME [facility]I Last Admin: 11/23/17 22:21 Dose: 20 mg Admin: 11/22/17 20:59 Dose: 20 mg Hydromorphone HCl (Dilaudid) 1 mg IVPUSH Q2H PRN PRN Reason: Pain (severe 7-10) Last Admin: 11/24/17 04:57 Dose: 1 mg Admin: 11/24/17 02:50 Dose: 1 mg Admin: 11/23/17 22:31 Dose: 1 mg Admin: 11/23/17 19:52 Dose: 1 mg Admin: 11/23/17 17:29 Dose: 1 mg Admin: 11/23/17 15:09 Dose: 1 mg Admin: 11/23/17 12:41 Dose: 1 mg Admin: 11/23/17 09:32 Dose: 1 mg Admin: 11/23/17 05:18 Dose: 1 mg Admin: 11/23/17 00:19 Dose: 1 mg Admin: 11/22/17 21:08 Dose: 1 mg Admin: 11/22/17 18:59 Dose: 1 mg Admin: 11/22/17 15:22 Dose: 1 mg Admin: 11/22/17 12:19 Dose: 1 mg Ciprofloxacin/Dextrose 400 mg/ (Premix) 200 mls @ 200 mls/hr IV Q12H [facility] Last Infusion: 11/24/17 03:45 Dose: 200 mls/hr Admin: 11/24/17 02:41 Dose: 200 mls/hr Infusion: 11/23/17 14:44 Dose: 200 mls/hr Admin: 11/23/17 13:44 Dose: 200 mls/hr Infusion: 11/23/17 03:46 Dose: 200 mls/hr Admin: 11/23/17 02:46 Dose: 200 mls/hr Infusion: 11/22/17 15:35 Dose: 200 mls/hr Admin: 11/22/17 14:35 Dose: 200 mls/hr Metronidazole 500 mg/ Premix 100 mls @ 100 mls/hr IV QID [facility] Last Admin: 11/24/17 05:13 Dose: 100 mls/hr Infusion: 11/24/17 01:45 Dose: 100 mls/hr Admin: 11/24/17 00:45 Dose: 100 mls/hr Infusion: 11/23/17 18:33 Dose: 100 mls/hr Admin: 11/23/17 17:33 Dose: 100 mls/hr Infusion: 11/23/17 12:13 Dose: 100 mls/hr Admin: 11/23/17 11:13 Dose: 100 mls/hr Infusion: 11/23/17 06:20 Dose: 100 mls/hr Admin: 11/23/17 05:20 Dose: 100 mls/hr Infusion: 11/23/17 00:15 Dose: 100 mls/hr Admin: 11/22/17 23:15 Dose: 100 mls/hr Infusion: 11/22/17 18:31 Dose: 100 mls/hr Admin: 11/22/17 17:31 Dose: 100 mls/hr Potassium Chloride/Dextrose/Sod Cl (D5 1/2 Ns W/ 20 Meq/L Kcl) 1,000 mls @ 150 mls/hr IV ASDIRECTED [facility] Last Admin: 11/24/17 05:02 Dose: 150 mls/hr Infusion: 11/24/17 05:01 Dose: 150 mls/hr Admin: 11/23/17 19:38 Dose: 150 mls/hr Lisinopril (Prinivil) 40 mg PO DAILY [facility] Last Admin: 11/23/17 09:14 Dose: Methylprednisolone Sodium Succinate (Solu-Medrol) 60 mg IVPUSH Q6H [facility] Last Admin: 11/24/17 05:04 Dose: 60 mg Admin: 11/23/17 22:35 Dose: 60 mg Admin: 11/23/17 17:41 Dose: 60 mg Metoprolol Succinate (Toprol Xl) 200 mg PO DAILY [facility] Last Admin: 11/23/17 09:13 Dose: 200 mg Ondansetron HCl (Zofran) 4 mg IVPUSH Q4H PRN PRN Reason: Nausea Last Admin: 11/22/17 19:06 Dose: 4 mg Pantoprazole Sodium (Protonix Iv) 40 mg IVPUSH Q12H [facility] Last Admin: 11/23/17 22:21 Dose: 40 mg Admin: 11/23/17 11:13 Dose: 40 mg Admin: 11/22/17 23:15 Dose: 40 mg Desvenlafaxine Succinate [Pristiq] 100 Mg 1 each PO DAILY [facility] Last Admin: 11/23/17 09:14 Dose: 1 each Diclofenac Sodium 1 (Applic) 1 each TOP QID PRN PRN Reason: Pain Orphenadrine 100 Mg 1 each PO BID PRN PRN Reason: Arrhythmia Butalb/Acetaminophen /Caffeine [Butalb- Acetamin-Caff 50-30 2 each PO Q4H PRN PRN Reason: Headache Quetiapine Fumarate (Seroquel) 150 mg PO BEDTIME [facility] Last Admin: 11/23/17 22:05 Dose: Sodium Chloride (Saline Flush) 10 ml FLUSH ASDIRECTED PRN PRN Reason: Keep Vein Open Sodium Chloride (Saline Flush) 2.5 ml FLUSH ASDIRECTED PRN PRN Reason: Keep Vein Open Spironolactone (Aldactone) 25 mg PO DAILY [facility] Last Admin: 11/23/17 09:13 Dose: 25 mg Labs: Laboratory Tests 11/22/17 11/22/17 11/22/17 Range/Units 06:08 06:25 06:25 WBC 8.98 (4.0-11.0) K/uL RBC 4.37 (4.30-5.90) M/uL Hgb 13.9 (12.0-16.0) g/dL Hct 39.4 (36.0-46.0) % MCV 90.2 (80.0-98.0) fL MCH 31.8 (27.0-32.0) pg MCHC 35.3 (31.0-37.0) g/dL RDW Std Deviation 41.6 (28.0-62.0) fl RDW Coeff of Carlos 13 (11.0-15.0) % Plt Count 225 (150-400) K/uL MPV 9.40 (7.40-12.00) fL Neut % (Auto) 79.2 (48.0-80.0) % Lymph % (Auto) 16.7 (16.0-40.0) % [place] % (Auto) 3.8 (0.0-15.0) % Eos % (Auto) 0.1 (0.0-7.0) % Baso % (Auto) 0.2 (0.0-1.5) % Neut # (Auto) 7.1 H (1.4-5.7) K/uL Lymph # (Auto) 1.5 (0.6-2.4) K/uL [place] # (Auto) 0.3 (0.0-0.8) K/uL Eos # (Auto) 0.0 (0.0-0.7) K/uL Baso # (Auto) 0.0 (0.0-0.1) K/uL Nucleated RBC % 0.0 /100WBC Nucleated RBCs # 0 K/uL ESR (0-29) mm/hr INR Sodium 138 (136-145) mmol/L Potassium 4.5 (3.5-5.1) mmol/L Chloride 104 (98-107) mmol/L Carbon Dioxide 21.1 (21.0-32.0) mmol/L BUN 44 H (7.0-18.0) mg/dL Creatinine 1.2 H (0.6-1.0) mg/dL Est Cr Clr Drug Dosing 41.24 mL/min Estimated GFR (MDRD) 45.8 ml/min Glucose 153 H (74-106) mg/dL Calcium 9.2 (8.5-10.1) mg/dL Total Bilirubin 0.3 (0.2-1.0) mg/dL AST 28 (15-37) IU/L ALT 31 (14-63) IU/L Alkaline Phosphatase 93 (46-116) U/L Creatine Kinase (26-308) U/L Troponin I < 0.050 (0.000-0.056) ng/mL C-Reactive Protein (0.00-0.90) mg/dL Total Protein 7.6 (6.4-8.2) g/dL Albumin 4.3 (3.4-5.0) g/dL Globulin 3.3 (2.0-3.5) g/dL Albumin/Globulin Ratio 1.3 (1.3-2.8) Lipase 128 (73-393) U/L Urine Color YELLOW Urine Appearance CLEAR Urine pH 5.5 (5.0-8.0) Ur Specific [place] 1.020 (1.001-1.035) Urine Protein NEGATIVE (NEGATIVE) mg/dL Urine Glucose (UA) NEGATIVE (NEGATIVE) mg/dL Urine Ketones NEGATIVE (NEGATIVE) mg/dL Urine Occult Blood MODERATE (NEGATIVE) Urine Nitrite NEGATIVE (NEGATIVE) Urine Bilirubin NEGATIVE (NEGATIVE) Urine Urobilinogen 0.2 (<2.0) EU/dL Ur Leukocyte Esterase NEGATIVE (NEGATIVE) Urine RBC 1-2 (0-2/HPF) Urine WBC 0-1 (0-5/HPF) Ur Epithelial Cells RARE (NONE-FEW) Urine Bacteria RARE (NEGATIVE) 11/22/17 11/22/17 11/22/17 Range/Units 06:25 06:25 06:33 WBC (4.0-11.0) K/uL RBC (4.30-5.90) M/uL Hgb (12.0-16.0) g/dL Hct (36.0-46.0) % MCV (80.0-98.0) fL MCH (27.0-32.0) pg MCHC (31.0-37.0) g/dL RDW Std Deviation (28.0-62.0) fl RDW Coeff of Carlos (11.0-15.0) % Plt Count (150-400) K/uL MPV (7.40-12.00) fL Neut % (Auto) (48.0-80.0) % Lymph % (Auto) (16.0-40.0) % [place] % (Auto) (0.0-15.0) % Eos % (Auto) (0.0-7.0) % Baso % (Auto) (0.0-1.5) % Neut # (Auto) (1.4-5.7) K/uL Lymph # (Auto) (0.6-2.4) K/uL [place]kin # (Auto) (0.0-0.8) K/uL Eos # (Auto) (0.0-0.7) K/uL Baso # (Auto) (0.0-0.1) K/uL Nucleated RBC % /100WBC Nucleated RBCs # K/uL ESR 11 (0-29) mm/hr INR 1.01 Sodium (136-145) mmol/L Potassium (3.5-5.1) mmol/L Chloride (98-107) mmol/L Carbon Dioxide (21.0-32.0) mmol/L BUN (7.0-18.0) mg/dL Creatinine (0.6-1.0) mg/dL Est Cr Clr Drug Dosing mL/min Estimated GFR (MDRD) ml/min Glucose (74-106) mg/dL Calcium (8.5-10.1) mg/dL Total Bilirubin (0.2-1.0) mg/dL AST (15-37) IU/L ALT (14-63) IU/L Alkaline Phosphatase (46-116) U/L Creatine Kinase 56 (26-308) U/L Troponin I (0.000-0.056) ng/mL C-Reactive Protein (0.00-0.90) mg/dL Total Protein (6.4-8.2) g/dL Albumin (3.4-5.0) g/dL Globulin (2.0-3.5) g/dL Albumin/Globulin Ratio (1.3-2.8) Lipase (73-393) U/L Urine Color Urine Appearance Urine pH (5.0-8.0) Ur Specific [place] (1.001-1.035) Urine Protein (NEGATIVE) mg/dL Urine Glucose (UA) (NEGATIVE) mg/dL Urine Ketones (NEGATIVE) mg/dL Urine Occult Blood (NEGATIVE) Urine Nitrite (NEGATIVE) Urine Bilirubin (NEGATIVE) Urine Urobilinogen (<2.0) EU/dL Ur Leukocyte Esterase (NEGATIVE) Urine RBC (0-2/HPF) Urine WBC (0-5/HPF) Ur Epithelial Cells (NONE-FEW) Urine Bacteria (NEGATIVE) 11/22/17 Range/Units 06:33 WBC (4.0-11.0) K/uL RBC (4.30-5.90) M/uL Hgb (12.0-16.0) g/dL Hct (36.0-46.0) % MCV (80.0-98.0) fL MCH (27.0-32.0) pg MCHC (31.0-37.0) g/dL RDW Std Deviation (28.0-62.0) fl RDW Coeff of Carlos (11.0-15.0) % Plt Count (150-400) K/uL MPV (7.40-12.00) fL Neut % (Auto) (48.0-80.0) % Lymph % (Auto) (16.0-40.0) % [place] % (Auto) (0.0-15.0) % Eos % (Auto) (0.0-7.0) % Baso % (Auto) (0.0-1.5) % Neut # (Auto) (1.4-5.7) K/uL Lymph # (Auto) (0.6-2.4) K/uL [place] # (Auto) (0.0-0.8) K/uL Eos # (Auto) (0.0-0.7) K/uL Baso # (Auto) (0.0-0.1) K/uL Nucleated RBC % /100WBC Nucleated RBCs # K/uL ESR (0-29) mm/hr INR Sodium (136-145) mmol/L Potassium (3.5-5.1) mmol/L Chloride (98-107) mmol/L Carbon Dioxide (21.0-32.0) mmol/L BUN (7.0-18.0) mg/dL Creatinine (0.6-1.0) mg/dL Est Cr Clr Drug Dosing mL/min Estimated GFR (MDRD) ml/min Glucose (74-106) mg/dL Calcium (8.5-10.1) mg/dL Total Bilirubin (0.2-1.0) mg/dL AST (15-37) IU/L ALT (14-63) IU/L Alkaline Phosphatase (46-116) U/L Creatine Kinase (26-308) U/L Troponin I (0.000-0.056) ng/mL C-Reactive Protein <0.20 (0.00-0.90) mg/dL Total Protein (6.4-8.2) g/dL Albumin (3.4-5.0) g/dL Globulin (2.0-3.5) g/dL Albumin/Globulin Ratio (1.3-2.8) Lipase (73-393) U/L Urine Color Urine Appearance Urine pH (5.0-8.0) Ur Specific [place] (1.001-1.035) Urine Protein (NEGATIVE) mg/dL Urine Glucose (UA) (NEGATIVE) mg/dL Urine Ketones (NEGATIVE) mg/dL Urine Occult Blood (NEGATIVE) Urine Nitrite (NEGATIVE) Urine Bilirubin (NEGATIVE) Urine Urobilinogen (<2.0) EU/dL Ur Leukocyte Esterase (NEGATIVE) Urine RBC (0-2/HPF) Urine WBC (0-5/HPF) Ur Epithelial Cells (NONE-FEW) Urine Bacteria (NEGATIVE) Meds: Medications Generic Name Dose Route Start Last Admin Trade Name Freq PRN Reason Stop Dose Admin Alprazolam 0.5 mg 11/22/17 13:10 Xanax PO DAILY PRN Anxiety Amlodipine Besylate 10 mg 11/23/17 09:00 11/23/17 09:14 Norvasc PO Not Given DAILY [facility] Atorvastatin Calcium 20 mg 11/22/17 21:00 11/23/17 22:21 Lipitor PO 20 mg BEDTIME [facility] Administration Hydromorphone HCl 1 mg 11/22/17 12:04 11/24/17 04:57 Dilaudid IVPUSH 1 mg Q2H PRN Administration Pain (severe 7-10) Ciprofloxacin/Dextrose 400 mg/ 200 mls @ 200 mls/hr 11/22/17 14:15 11/24/17 03:45 Premix IV Infused Q12H [facility]I Infusion Metronidazole 500 mg/ Premix 100 mls @ 100 mls/hr 11/22/17 18:00 11/24/17 05: 13 IV 100 mls/hr QID [facility]I Administration Potassium Chloride/Dextrose/Sod Cl 1,000 mls @ 150 mls/hr 11/23/17 17:30 05:02 D5 1/2 Ns W/ 20 Meq/L Kcl IV 150 mls/hr ASDIRECTED [facility]I Administration Lisinopril 40 mg 11/23/17 09:00 11/23/17 09:14 Prinivil PO Not Given DAILY [facility] Methylprednisolone Sodium Succinate 60 mg 11/23/17 17:30 11/24/17 05:04 Solu-Medrol IVPUSH 60 mg Q6H [facility] Administration Metoprolol Succinate 200 mg 11/23/17 09:00 11/23/17 09:13 Toprol Xl PO 200 mg DAILY [facility] Administration Ondansetron HCl 4 mg 11/22/17 12:04 11/22/17 19:06 Zofran IVPUSH 4 mg Q4H PRN Administration Nausea Pantoprazole Sodium 40 mg 11/22/17 22:30 11/23/17 22:21 Protonix Iv IVPUSH 40 mg Q12H [facility] Administration Desvenlafaxine 1 each 11/23/17 09:00 11/23/17 09:14 Succinate [Pristiq] PO 1 each 100 Mg DAILY [facility] Administration Diclofenac Sodium 1 1 each 11/22/17 13:10 Applic TOP QID PRN Pain Orphenadrine 100 Mg 1 each 11/22/17 13:10 PO BID PRN Arrhythmia Butalb/Acetaminophen 2 each 11/22/17 14:08 /Caffeine [Butalb- PO Acetamin-Caff 50-30 Q4H PRN Headache Quetiapine Fumarate 150 mg 11/23/17 21:00 11/23/17 22:05 Seroquel PO Not Given BEDTIME [facility] Sodium Chloride 10 ml 11/22/17 12:04 Saline Flush FLUSH ASDIRECTED PRN Keep Vein Open Sodium Chloride 2.5 ml 11/22/17 12:04 Saline Flush FLUSH ASDIRECTED PRN Keep Vein Open Spironolactone 25 mg 11/23/17 09:00 11/23/17 09:13 Aldactone PO 25 mg DAILY [facility] Administration Discontinued Medications Generic Name Dose Route Start Last Admin Trade Name Freq PRN Reason Stop Dose Admin Aspirin 81 mg 11/23/17 09:00 Aspirin PO DAILY [facility] Aspirin 81 mg 11/23/17 09:00 Aspirin PO DAILY [facility] Sodium Chloride 1,000 mls @ 999 mls/hr 11/22/17 06:04 11/22/17 06:24 Normal Saline IV 11/22/17 07:04 999 mls/hr STAT ONE Administration Lactated Ringer's 1,000 mls @ 125 mls/hr 11/22/17 12:15 11/23/17 13:44 Ringers, Lactated IV 125 mls/hr ASDIRECTED [facility] Administration Lactated Ringer's 1,000 mls @ 9,999 mls/hr 11/22/17 22:15 11/22/17 23:22 Ringers, Lactated IV 9,999 mls/hr ASDIRECTED [facility] Administration Lisinopril 10 mg 11/23/17 09:00 Prinivil PO DAILY [facility] Methylprednisolone Sodium Succinate 60 mg 11/22/17 14:15 11/23/17 09:17 Solu-Medrol IVPUSH 60 mg DAILY [facility] Administration Metoprolol Succinate 50 mg 11/23/17 09:00 Toprol Xl PO DAILY [facility] Morphine Sulfate 2 mg 11/22/17 06:30 11/22/17 06:39 Morphine IVPUSH 11/22/17 06:31 2 mg ONETIME ONE Administration Morphine Sulfate 2 mg 11/22/17 07:42 11/22/17 07:51 Morphine IVPUSH 11/22/17 07:43 2 mg ONETIME ONE Administration Morphine Sulfate 2 mg 11/22/17 12:04 Morphine IVPUSH 11/23/17 12:05 Q2H PRN Pain (severe 7-10) Ondansetron HCl 8 mg 11/22/17 06:04 11/22/17 06:26 Zofran IVPUSH 11/22/17 06:05 8 mg ONETIME ONE Administration Pantoprazole Sodium 40 mg 11/23/17 07:30 Protonix PO ACBREAKFAST [facility] Quetiapine Fumarate 150 mg 11/23/17 09:00 11/23/17 09:26 Seroquel PO Not Given DAILY [facility] Departure - Departure Time of Disposition: 09:38 Disposition: Refer to Observation Condition: Good Clinical Impression: Abdominal pain, Rectal bleeding - Discharge Information <Dominic Palumbo - Last Filed: 11/24/17 05:51> ED HPI GENERAL MEDICAL PROBLEM - General Source of Information: Reports: Patient - History of Present Illness INITIAL COMMENTS - FREE TEXT/NARRATIVE: HISTORY AND PHYSICAL: History of present illness: [Patient presents with abdominal pain and rectal bleeding, rates pain 6 out of 10 left flank and lower quadrant, she has bright red blood per rectum small quantities not associated with bowel movements at current liver she has had loose stools over the last several days no fever vomiting chills sweats no chest pain shortness breath headache dizziness or palpitation no urine symptoms History of irritable bowel syndrome and diverticulitis History of appendectomy and total abdominal hysterectomy she has had colonoscopy although greater than 10 years prior] Review of systems: As per history of present illness and below otherwise all systems reviewed and negative. Past medical history: As per history of present illness and as reviewed below otherwise noncontributory. Surgical history: As per history of present illness and as reviewed below otherwise noncontributory. Social history: No reported history of drug or alcohol abuse. Family history: As per history of present illness and as reviewed below otherwise noncontributory. Physical exam: HEENT: Atraumatic, normocephalic, pupils reactive, negative for conjunctival pallor or scleral icterus, mucous membranes moist, throat clear, neck supple, nontender, trachea midline. Lungs: Clear to auscultation, breath sounds equal bilaterally, chest nontender. Heart: S1S2, regular, negative for clicks, rubs, or JVD. Abdomen: Soft, nondistended, diffuse tenderness with focus in sigmoid distribution on exam with mild guarding no rebound. Negative for masses or hepatosplenomegaly. Negative for costovertebral tenderness. Pelvis: Stable nontender. Genitourinary: Deferred. Rectal: Deferred. Extremities: Atraumatic, negative for cords or calf pain. Neurovascular unremarkable. Neuro: Awake, alert, oriented. Cranial nerves II through XII unremarkable. Cerebellum unremarkable. Motor and sensory unremarkable throughout. Exam nonfocal. Diagnostics: [CBC CMP UA lipase troponin INR CPK EKG ]Abdomen pelvis with and without contrast Therapeutics: [1 L normal saline bolus Zofran 8 mg IV Morphine 2 mg IV Patient signed out to Dr. Cruz follow imaging and redirected ] Impression: [ abdominal pain Prior red blood per rectum ] Definitive disposition and diagnosis as appropriate pending reevaluation and review of above. Past Medical History HEENT History: Reports: None Other HEENT History: Iritis Cardiovascular History: Reports: Pacemaker Respiratory History: Reports: None Gastrointestinal History: Reports: None Genitourinary History: Reports: None Other OB/BYN History: 5 endometriosis surgeries, breast reduction Musculoskeletal History: Reports: None Neurological History: Reports: None Psychiatric History: Reports: Anxiety, Depression Endocrine/Metabolic History: Reports: None Hematologic History: Reports: None Immunologic History: Reports: None Oncologic (Cancer) History: Reports: None Dermatologic History: Reports: None Other Dermatologic History: Skin CA, squamous cell - Infectious Disease History Infectious Disease History: Reports: None - Past Surgical History Head Surgeries/Procedures: Reports: None Respiratory Surgical History: Reports: None GI Surgical History: Reports: None Musculoskeletal Surgical History: Reports: None Social & Family History - Family History Family Medical History: Noncontributory - Caffeine Use Caffeine Use: Reports: Other ED ROS GENERAL - Review of Systems Review Of Systems: See Below ED EXAM, GENERAL - Physical Exam Exam: See Below Course - Vital Signs Last Recorded V/S: Last Vital Signs Temp 98.2 F 11/24/17 04:00 Pulse 76 11/24/17 04:00 Resp 19 11/24/17 04:00 BP 116/62 11/24/17 04:00 Pulse Ox 97 11/24/17 04:00 - Orders/Labs/Meds Labs: Laboratory Tests 11/22/17 11/22/17 11/22/17 Range/Units 06:08 06:25 06:25 WBC 8.98 (4.0-11.0) K/uL RBC 4.37 (4.30-5.90) M/uL Hgb 13.9 (12.0-16.0) g/dL Hct 39.4 (36.0-46.0) % MCV 90.2 (80.0-98.0) fL MCH 31.8 (27.0-32.0) pg MCHC 35.3 (31.0-37.0) g/dL RDW Std Deviation 41.6 (28.0-62.0) fl RDW Coeff of Carlos 13 (11.0-15.0) % Plt Count 225 (150-400) K/uL MPV 9.40 (7.40-12.00) fL Neut % (Auto) 79.2 (48.0-80.0) % Lymph % (Auto) 16.7 (16.0-40.0) % [place] % (Auto) 3.8 (0.0-15.0) % Eos % (Auto) 0.1 (0.0-7.0) % Baso % (Auto) 0.2 (0.0-1.5) % Neut # (Auto) 7.1 H (1.4-5.7) K/uL Lymph # (Auto) 1.5 (0.6-2.4) K/uL [place] # (Auto) 0.3 (0.0-0.8) K/uL Eos # (Auto) 0.0 (0.0-0.7) K/uL Baso # (Auto) 0.0 (0.0-0.1) K/uL Nucleated RBC % 0.0 /100WBC Nucleated RBCs # 0 K/uL ESR (0-29) mm/hr INR Sodium 138 (136-145) mmol/L Potassium 4.5 (3.5-5.1) mmol/L Chloride 104 (98-107) mmol/L Carbon Dioxide 21.1 (21.0-32.0) mmol/L BUN 44 H (7.0-18.0) mg/dL Creatinine 1.2 H (0.6-1.0) mg/dL Est Cr Clr Drug Dosing 41.24 mL/min Estimated GFR (MDRD) 45.8 ml/min Glucose 153 H (74-106) mg/dL Calcium 9.2 (8.5-10.1) mg/dL Total Bilirubin 0.3 (0.2-1.0) mg/dL AST 28 (15-37) IU/L ALT 31 (14-63) IU/L Alkaline Phosphatase 93 (46-116) U/L Creatine Kinase (26-308) U/L Troponin I < 0.050 (0.000-0.056) ng/mL C-Reactive Protein (0.00-0.90) mg/dL Total Protein 7.6 (6.4-8.2) g/dL Albumin 4.3 (3.4-5.0) g/dL Globulin 3.3 (2.0-3.5) g/dL Albumin/Globulin Ratio 1.3 (1.3-2.8) Lipase 128 (73-393) U/L Urine Color YELLOW Urine Appearance CLEAR Urine pH 5.5 (5.0-8.0) Ur Specific [place] 1.020 (1.001-1.035) Urine Protein NEGATIVE (NEGATIVE) mg/dL Urine Glucose (UA) NEGATIVE (NEGATIVE) mg/dL Urine Ketones NEGATIVE (NEGATIVE) mg/dL Urine Occult Blood MODERATE (NEGATIVE) Urine Nitrite NEGATIVE (NEGATIVE) Urine Bilirubin NEGATIVE (NEGATIVE) Urine Urobilinogen 0.2 (<2.0) EU/dL Ur Leukocyte Esterase NEGATIVE (NEGATIVE) Urine RBC 1-2 (0-2/HPF) Urine WBC 0-1 (0-5/HPF) Ur Epithelial Cells RARE (NONE-FEW) Urine Bacteria RARE (NEGATIVE) 11/22/17 11/22/17 11/22/17 Range/Units 06:25 06:25 06:33 WBC (4.0-11.0) K/uL RBC (4.30-5.90) M/uL Hgb (12.0-16.0) g/dL Hct (36.0-46.0) % MCV (80.0-98.0) fL MCH (27.0-32.0) pg MCHC (31.0-37.0) g/dL RDW Std Deviation (28.0-62.0) fl RDW Coeff of Carlso (11.0-15.0) % Plt Count (150-400) K/uL MPV (7.40-12.00) fL Neut % (Auto) (48.0-80.0) % Lymph % (Auto) (16.0-40.0) % [place] % (Auto) (0.0-15.0) % Eos % (Auto) (0.0-7.0) % Baso % (Auto) (0.0-1.5) % Neut # (Auto) (1.4-5.7) K/uL Lymph # (Auto) (0.6-2.4) K/uL [place]kin # (Auto) (0.0-0.8) K/uL Eos # (Auto) (0.0-0.7) K/uL Baso # (Auto) (0.0-0.1) K/uL Nucleated RBC % /100WBC Nucleated RBCs # K/uL ESR 11 (0-29) mm/hr INR 1.01 Sodium (136-145) mmol/L Potassium (3.5-5.1) mmol/L Chloride (98-107) mmol/L Carbon Dioxide (21.0-32.0) mmol/L BUN (7.0-18.0) mg/dL Creatinine (0.6-1.0) mg/dL Est Cr Clr Drug Dosing mL/min Estimated GFR (MDRD) ml/min Glucose (74-106) mg/dL Calcium (8.5-10.1) mg/dL Total Bilirubin (0.2-1.0) mg/dL AST (15-37) IU/L ALT (14-63) IU/L Alkaline Phosphatase (46-116) U/L Creatine Kinase 56 (26-308) U/L Troponin I (0.000-0.056) ng/mL C-Reactive Protein (0.00-0.90) mg/dL Total Protein (6.4-8.2) g/dL Albumin (3.4-5.0) g/dL Globulin (2.0-3.5) g/dL Albumin/Globulin Ratio (1.3-2.8) Lipase (73-393) U/L Urine Color Urine Appearance Urine pH (5.0-8.0) Ur Specific [place] (1.001-1.035) Urine Protein (NEGATIVE) mg/dL Urine Glucose (UA) (NEGATIVE) mg/dL Urine Ketones (NEGATIVE) mg/dL Urine Occult Blood (NEGATIVE) Urine Nitrite (NEGATIVE) Urine Bilirubin (NEGATIVE) Urine Urobilinogen (<2.0) EU/dL Ur Leukocyte Esterase (NEGATIVE) Urine RBC (0-2/HPF) Urine WBC (0-5/HPF) Ur Epithelial Cells (NONE-FEW) Urine Bacteria (NEGATIVE) 11/22/17 Range/Units 06:33 WBC (4.0-11.0) K/uL RBC (4.30-5.90) M/uL Hgb (12.0-16.0) g/dL Hct (36.0-46.0) % MCV (80.0-98.0) fL MCH (27.0-32.0) pg MCHC (31.0-37.0) g/dL RDW Std Deviation (28.0-62.0) fl RDW Coeff of Carlos (11.0-15.0) % Plt Count (150-400) K/uL MPV (7.40-12.00) fL Neut % (Auto) (48.0-80.0) % Lymph % (Auto) (16.0-40.0) % [place] % (Auto) (0.0-15.0) % Eos % (Auto) (0.0-7.0) % Baso % (Auto) (0.0-1.5) % Neut # (Auto) (1.4-5.7) K/uL Lymph # (Auto) (0.6-2.4) K/uL [place] # (Auto) (0.0-0.8) K/uL Eos # (Auto) (0.0-0.7) K/uL Baso # (Auto) (0.0-0.1) K/uL Nucleated RBC % /100WBC Nucleated RBCs # K/uL ESR (0-29) mm/hr INR Sodium (136-145) mmol/L Potassium (3.5-5.1) mmol/L Chloride (98-107) mmol/L Carbon Dioxide (21.0-32.0) mmol/L BUN (7.0-18.0) mg/dL Creatinine (0.6-1.0) mg/dL Est Cr Clr Drug Dosing mL/min Estimated GFR (MDRD) ml/min Glucose (74-106) mg/dL Calcium (8.5-10.1) mg/dL Total Bilirubin (0.2-1.0) mg/dL AST (15-37) IU/L ALT (14-63) IU/L Alkaline Phosphatase (46-116) U/L Creatine Kinase (26-308) U/L Troponin I (0.000-0.056) ng/mL C-Reactive Protein <0.20 (0.00-0.90) mg/dL Total Protein (6.4-8.2) g/dL Albumin (3.4-5.0) g/dL Globulin (2.0-3.5) g/dL Albumin/Globulin Ratio (1.3-2.8) Lipase (73-393) U/L Urine Color Urine Appearance Urine pH (5.0-8.0) Ur Specific [place] (1.001-1.035) Urine Protein (NEGATIVE) mg/dL Urine Glucose (UA) (NEGATIVE) mg/dL Urine Ketones (NEGATIVE) mg/dL Urine Occult Blood (NEGATIVE) Urine Nitrite (NEGATIVE) Urine Bilirubin (NEGATIVE) Urine Urobilinogen (<2.0) EU/dL Ur Leukocyte Esterase (NEGATIVE) Urine RBC (0-2/HPF) Urine WBC (0-5/HPF) Ur Epithelial Cells (NONE-FEW) Urine Bacteria (NEGATIVE) Meds: Medications Generic Name Dose Route Start Last Admin Trade Name Freq PRN Reason Stop Dose Admin Alprazolam 0.5 mg 11/22/17 13:10 Xanax PO DAILY PRN Anxiety Amlodipine Besylate 10 mg 11/23/17 09:00 11/23/17 09:14 Norvasc PO Not Given DAILY [facility] Atorvastatin Calcium 20 mg 11/22/17 21:00 11/23/17 22:21 Lipitor PO 20 mg BEDTIME LEI Administration Hydromorphone HCl 1 mg 11/22/17 12:04 11/24/17 04:57 Dilaudid IVPUSH 1 mg Q2H PRN Administration Pain (severe 7-10) Ciprofloxacin/Dextrose 400 mg/ 200 mls @ 200 mls/hr 11/22/17 14:15 11/24/17 03:45 Premix IV Infused Q12H LEI Infusion Metronidazole 500 mg/ Premix 100 mls @ 100 mls/hr 11/22/17 18:00 11/24/17 05: 13 IV 100 mls/hr QID LEI Administration Potassium Chloride/Dextrose/Sod Cl 1,000 mls @ 150 mls/hr 11/23/17 17:30 05:02 D5 1/2 Ns W/ 20 Meq/L Kcl IV 150 mls/hr ASDIRECTED LEI Administration Lisinopril 40 mg 11/23/17 09:00 11/23/17 09:14 Prinivil PO Not Given DAILY [facility] Methylprednisolone Sodium Succinate 60 mg 11/23/17 17:30 11/24/17 05:04 Solu-Medrol IVPUSH 60 mg Q6H LEI Administration Metoprolol Succinate 200 mg 11/23/17 09:00 11/23/17 09:13 Toprol Xl PO 200 mg DAILY LEI Administration Ondansetron HCl 4 mg 11/22/17 12:04 11/22/17 19:06 Zofran IVPUSH 4 mg Q4H PRN Administration Nausea Pantoprazole Sodium 40 mg 11/22/17 22:30 11/23/17 22:21 Protonix Iv IVPUSH 40 mg Q12H LEI Administration Desvenlafaxine 1 each 11/23/17 09:00 11/23/17 09:14 Succinate [Pristiq] PO 1 each 100 Mg DAILY LEI Administration Diclofenac Sodium 1 1 each 11/22/17 13:10 Applic TOP QID PRN Pain Orphenadrine 100 Mg 1 each 11/22/17 13:10 PO BID PRN Arrhythmia Butalb/Acetaminophen 2 each 11/22/17 14:08 /Caffeine [Butalb- PO Acetamin-Caff 50-30 Q4H PRN Headache Quetiapine Fumarate 150 mg 11/23/17 21:00 11/23/17 22:05 Seroquel PO Not Given BEDTIME LEI Sodium Chloride 10 ml 11/22/17 12:04 Saline Flush FLUSH ASDIRECTED PRN Keep Vein Open Sodium Chloride 2.5 ml 11/22/17 12:04 Saline Flush FLUSH ASDIRECTED PRN Keep Vein Open Spironolactone 25 mg 11/23/17 09:00 11/23/17 09:13 Aldactone PO 25 mg DAILY LEI Administration Discontinued Medications Generic Name Dose Route Start Last Admin Trade Name Freq PRN Reason Stop Dose Admin Aspirin 81 mg 11/23/17 09:00 Aspirin PO DAILY [facility] Aspirin 81 mg 11/23/17 09:00 Aspirin PO DAILY [facility] Sodium Chloride 1,000 mls @ 999 mls/hr 11/22/17 06:04 11/22/17 06:24 Normal Saline IV 11/22/17 07:04 999 mls/hr STAT ONE Administration Lactated Ringer's 1,000 mls @ 125 mls/hr 11/22/17 12:15 11/23/17 13:44 Ringers, Lactated IV 125 mls/hr ASDIRECTED LEI Administration Lactated Ringer's 1,000 mls @ 9,999 mls/hr 11/22/17 22:15 11/22/17 23:22 Ringers, Lactated IV 9,999 mls/hr ASDIRECTED LEI Administration Lisinopril 10 mg 11/23/17 09:00 Prinivil PO DAILY [facility] Methylprednisolone Sodium Succinate 60 mg 11/22/17 14:15 11/23/17 09:17 Solu-Medrol IVPUSH 60 mg DAILY [facility] Administration Metoprolol Succinate 50 mg 11/23/17 09:00 Toprol Xl PO DAILY [facility] Morphine Sulfate 2 mg 11/22/17 06:30 11/22/17 06:39 Morphine IVPUSH 11/22/17 06:31 2 mg ONETIME ONE Administration Morphine Sulfate 2 mg 11/22/17 07:42 11/22/17 07:51 Morphine IVPUSH 11/22/17 07:43 2 mg ONETIME ONE Administration Morphine Sulfate 2 mg 11/22/17 12:04 Morphine IVPUSH 11/23/17 12:05 Q2H PRN Pain (severe 7-10) Ondansetron HCl 8 mg 11/22/17 06:04 11/22/17 06:26 Zofran IVPUSH 11/22/17 06:05 8 mg ONETIME ONE Administration Pantoprazole Sodium 40 mg 11/23/17 07:30 Protonix PO ACBREAKFAST LEI Quetiapine Fumarate 150 mg 11/23/17 09:00 11/23/17 09:26 Seroquel PO Not Given DAILY [facility]
[2017-11-22] MEDS ORDERED: Morphine 2 MG/ML Syringe IVPUSH ONE ×2 (06:30→07:42)
[2017-11-22 07:02] LABS: CHLORIDE,CL 104 mmol/L (98-107); SODIUM,NA 138 mmol/L (136-145)
--- NOTE | 2017-11-22 12:03 | PCM.HP ---
H&P History of Present Illness - General Date of Service: 11/22/17 Admit Problem/Dx: Admission Diagnosis/Problem Admission Diagnosis/Problem Abdominal pain, bloody diarrhea Source of Information: Patient - History of Present Illness Initial Comments - Free Text/Narative: Patient 62 y old female with PMhx of IBS , s/p 5 abdominal surgeries for endometriosis presented to hospital due to abdominal pain and bloody diarrhea that started Monday night. She was not feeling well since and had nausea and vomiting. She had about 5-6 bloody bowel movements and vomited 3 times since her symptoms started. Her mother had pancreatic cancer and suffered toward the end of her life of colitis with bloody stool for about 5- 10 y , as per patient. Patient denies similar symptoms before. Onset of Symptoms: Reports: Today Duration of Symptoms: Reports: Day(s): Location: Reports: Abdomen Quality: Reports: Other (crampy) Associated Symptoms: Reports: Nausea/Vomiting Abdomen Pain Score (Numeric/FACES): 8 - Related Data Allergies/Adverse Reactions: Allergies Allergy/AdvReac Type Severity Reaction Status Date / Time ceftriaxone sodium Allergy Cannot Verified 11/22/17 06:06 [From Rocephin] Remember erythromycin lactobionate Allergy Unknown Verified 11/22/17 06:06 [From Erythrocin] buspirone HCl [From BuSpar] AdvReac Other Verified 11/22/17 06:06 Home Medications: Home Meds ALPRAZolam [Alprazolam] 0.5 - 1 mg PO DAILY PRN 11/10/14 [History] amLODIPine Besylate [Amlodipine Besylate] 10 mg PO DAILY 11/10/14 [History] Desvenlafaxine Succinate [Pristiq] 100 mg PO DAILY 05/30/17 [History] Orphenadrine [Norflex] 100 mg PO BID PRN 05/31/17 [History] Pantoprazole Sodium 40 mg PO ACBREAKFAST 05/31/17 [History] atorvaSTATin [Lipitor] 20 mg PO BEDTIME #30 tablet 05/31/17 [Rx] Aspirin 81 mg PO DAILY 11/22/17 [History] Butalb/Acetaminophen/Caffeine [Mmgbmt-[id number]-[id number] 50-300-40] 1 - 2 cap PO Q4H PRN 11/22/17 [History] Lisinopril 40 mg PO DAILY 11/22/17 [History] Metoprolol Succinate 200 mg PO DAILY 11/22/17 [History] QUEtiapine [SEROquel] 150 mg PO DAILY 11/22/17 [History] Spironolactone [Aldactone] 25 mg PO DAILY 11/22/17 [History] Past Medical History HEENT History: Reports: None, Cataract Other HEENT History: Iritis Cardiovascular History: Reports: Arrhythmia, High Cholesterol, Hypertension, Pacemaker, SOB on Exertion Respiratory History: Reports: None Gastrointestinal History: Reports: Diverticulosis, Irritable Bowel Syndrome Genitourinary History: Reports: None [employer]ODY WORK [employer] History: Reports: Endometriosis Other OB/BYN History: 5 endometriosis surgeries, breast reduction Musculoskeletal History: Reports: Back Pain, Chronic Neurological History: Reports: Migraines Psychiatric History: Reports: Anxiety, Depression Endocrine/Metabolic History: Reports: None Hematologic History: Reports: None Immunologic History: Reports: None Oncologic (Cancer) History: Reports: Squamous Cell Carcinoma Other Oncologic History: skin cancer Dermatologic History: Reports: None Other Dermatologic History: Skin CA, squamous cell - Infectious Disease History Infectious Disease History: Reports: Chicken Pox, Measles, Mumps - Past Surgical History Head Surgeries/Procedures: Reports: None HEENT Surgical History: Reports: Cataract Surgery, Tonsillectomy Respiratory Surgical History: Reports: None Female Surgical History: Reports: Breast Reduction Neurological Surgical History: Reports: None Musculoskeletal Surgical History: Reports: Other (See Below) Other Musculoskeletal Surgeries/Procedures:: injection Dermatological Surgical History: Reports: Skin Biopsy Social & Family History - Family History Family Medical History: Noncontributory Oncologic: Reports: Pancreatic - Tobacco Use Smoking Status *Q: Never Smoker Used Tobacco, but Quit: No - Caffeine Use Caffeine Use: Reports: None - Recreational Drug Use Recreational Drug Use: No H&P Review of Systems - Review of Systems: Review Of Systems: See Below General: Reports: Malaise, Weakness HEENT: Reports: No Symptoms Pulmonary: Reports: No Symptoms Cardiovascular: Reports: No Symptoms Gastrointestinal: Reports: Abdominal Pain, Diarrhea, Nausea, Vomiting Genitourinary: Reports: No Symptoms Musculoskeletal: Reports: No Symptoms Skin: Reports: No Symptoms Psychiatric: Reports: No Symptoms Neurological: Reports: No Symptoms Hematologic/Lymphatic: Reports: No Symptoms Immunologic: Reports: No Symptoms Exam - Exam Exam: See Below - Vital Signs Vital Signs: Last Vital Signs Temp 97.1 F 11/22/17 11:24 Pulse 89 11/22/17 11:24 Resp 20 11/22/17 11:24 BP 139/72 11/22/17 11:24 Pulse Ox 99 11/22/17 11:24 Weight: 229 lb 9.6 oz - Exam General: Alert, Oriented HEENT: Conjunctiva Clear Neck: Supple, Trachea Midline Lungs: Clear to Auscultation, Normal Respiratory Effort Cardiovascular: Regular Rate, Regular Rhythm, Normal S1, Normal S2 GI/Abdominal Exam: Normal Bowel Sounds, Soft, No Organomegaly, No Distention, No Mass, Tender (lower abdomen). No: Distended, Guarding, Rigid, Rebound Back Exam: Normal Inspection Extremities: Normal Inspection Skin: Warm, Dry, Intact Neurological: Cranial Nerves Intact Neuro Extensive - Mental Status: Alert, Oriented x3 Neuro Extensive - Motor, Sensory, Reflexes: CN II-XII Intact Psychiatric: Alert, Normal Affect - Patient Data Lab Results Last 24 hrs: Laboratory Results - last 24 hr 11/22/17 11/22/17 11/22/17 Range/Units 06:08 06:25 06:25 WBC 8.98 (4.0-11.0) K/uL RBC 4.37 (4.30-5.90) M/uL Hgb 13.9 (12.0-16.0) g/dL Hct 39.4 (36.0-46.0) % MCV 90.2 (80.0-98.0) fL MCH 31.8 (27.0-32.0) pg MCHC 35.3 (31.0-37.0) g/dL RDW Std Deviation 41.6 (28.0-62.0) fl RDW Coeff of Carlos 13 (11.0-15.0) % Plt Count 225 (150-400) K/uL MPV 9.40 (7.40-12.00) fL Neut % (Auto) 79.2 (48.0-80.0) % Lymph % (Auto) 16.7 (16.0-40.0) % [place] % (Auto) 3.8 (0.0-15.0) % Eos % (Auto) 0.1 (0.0-7.0) % Baso % (Auto) 0.2 (0.0-1.5) % Neut # (Auto) 7.1 H (1.4-5.7) K/uL Lymph # (Auto) 1.5 (0.6-2.4) K/uL [place] # (Auto) 0.3 (0.0-0.8) K/uL Eos # (Auto) 0.0 (0.0-0.7) K/uL Baso # (Auto) 0.0 (0.0-0.1) K/uL Nucleated RBC % 0.0 /100WBC Nucleated RBCs # 0 K/uL INR Sodium 138 (136-145) mmol/L Potassium 4.5 (3.5-5.1) mmol/L Chloride 104 (98-107) mmol/L Carbon Dioxide 21.1 (21.0-32.0) mmol/L BUN 44 H (7.0-18.0) mg/dL Creatinine 1.2 H (0.6-1.0) mg/dL Est Cr Clr Drug Dosing 41.24 mL/min Estimated GFR (MDRD) 45.8 ml/min Glucose 153 H (74-106) mg/dL Calcium 9.2 (8.5-10.1) mg/dL Total Bilirubin 0.3 (0.2-1.0) mg/dL AST 28 (15-37) IU/L ALT 31 (14-63) IU/L Alkaline Phosphatase 93 (46-116) U/L Creatine Kinase (26-308) U/L Troponin I < 0.050 (0.000-0.056) ng/mL Total Protein 7.6 (6.4-8.2) g/dL Albumin 4.3 (3.4-5.0) g/dL Globulin 3.3 (2.0-3.5) g/dL Albumin/Globulin Ratio 1.3 (1.3-2.8) Lipase 128 (73-393) U/L Urine Color YELLOW Urine Appearance CLEAR Urine pH 5.5 (5.0-8.0) Ur Specific [place] 1.020 (1.001-1.035) Urine Protein NEGATIVE (NEGATIVE) mg/dL Urine Glucose (UA) NEGATIVE (NEGATIVE) mg/dL Urine Ketones NEGATIVE (NEGATIVE) mg/dL Urine Occult Blood MODERATE (NEGATIVE) Urine Nitrite NEGATIVE (NEGATIVE) Urine Bilirubin NEGATIVE (NEGATIVE) Urine Urobilinogen 0.2 (<2.0) EU/dL Ur Leukocyte Esterase NEGATIVE (NEGATIVE) Urine RBC 1-2 (0-2/HPF) Urine WBC 0-1 (0-5/HPF) Ur Epithelial Cells RARE (NONE-FEW) Urine Bacteria RARE (NEGATIVE) 11/22/17 11/22/17 Range/Units 06:25 06:25 WBC (4.0-11.0) K/uL RBC (4.30-5.90) M/uL Hgb (12.0-16.0) g/dL Hct (36.0-46.0) % MCV (80.0-98.0) fL MCH (27.0-32.0) pg MCHC (31.0-37.0) g/dL RDW Std Deviation (28.0-62.0) fl RDW Coeff of Carlos (11.0-15.0) % Plt Count (150-400) K/uL MPV (7.40-12.00) fL Neut % (Auto) (48.0-80.0) % Lymph % (Auto) (16.0-40.0) % [place] % (Auto) (0.0-15.0) % Eos % (Auto) (0.0-7.0) % Baso % (Auto) (0.0-1.5) % Neut # (Auto) (1.4-5.7) K/uL Lymph # (Auto) (0.6-2.4) K/uL [place] # (Auto) (0.0-0.8) K/uL Eos # (Auto) (0.0-0.7) K/uL Baso # (Auto) (0.0-0.1) K/uL Nucleated RBC % /100WBC Nucleated RBCs # K/uL INR 1.01 Sodium (136-145) mmol/L Potassium (3.5-5.1) mmol/L Chloride (98-107) mmol/L Carbon Dioxide (21.0-32.0) mmol/L BUN (7.0-18.0) mg/dL Creatinine (0.6-1.0) mg/dL Est Cr Clr Drug Dosing mL/min Estimated GFR (MDRD) ml/min Glucose (74-106) mg/dL Calcium (8.5-10.1) mg/dL Total Bilirubin (0.2-1.0) mg/dL AST (15-37) IU/L ALT (14-63) IU/L Alkaline Phosphatase (46-116) U/L Creatine Kinase 56 (26-308) U/L Troponin I (0.000-0.056) ng/mL Total Protein (6.4-8.2) g/dL Albumin (3.4-5.0) g/dL Globulin (2.0-3.5) g/dL Albumin/Globulin Ratio (1.3-2.8) Lipase (73-393) U/L Urine Color Urine Appearance Urine pH (5.0-8.0) Ur Specific [place] (1.001-1.035) Urine Protein (NEGATIVE) mg/dL Urine Glucose (UA) (NEGATIVE) mg/dL Urine Ketones (NEGATIVE) mg/dL Urine Occult Blood (NEGATIVE) Urine Nitrite (NEGATIVE) Urine Bilirubin (NEGATIVE) Urine Urobilinogen (<2.0) EU/dL Ur Leukocyte Esterase (NEGATIVE) Urine RBC (0-2/HPF) Urine WBC (0-5/HPF) Ur Epithelial Cells (NONE-FEW) Urine Bacteria (NEGATIVE) Result Diagrams: 11/22/17 06:25 11/22/17 06:25 - Problem List (1) Morbid obesity with BMI of 40.0-44.9, adult SNOMED Code(s): 052177314 ICD Code: E66.01 - MORBID (SEVERE) OBESITY DUE TO EXCESS CALORIES; Z68.41 - BODY MASS INDEX (BMI) 40.0-44.9, ADULT Status: Acute Current Visit: Yes (2) Abdominal pain SNOMED Code(s): 32710873 ICD Code: R10.9 - UNSPECIFIED ABDOMINAL PAIN Status: Acute Current Visit : Yes (3) Rectal bleeding SNOMED Code(s): 92201783 ICD Code: K62.5 - HEMORRHAGE OF ANUS AND RECTUM Status: Acute Current Visit: Yes (4) Depression SNOMED Code(s): 87994136 ICD Code: F32.9 - MAJOR DEPRESSIVE DISORDER, SINGLE EPISODE, UNSPECIFIED Status: Acute Current Visit: Yes Problem List Initiated/Reviewed/Updated: Yes Orders Last 24hrs: Active Orders 24 hr Category Date Time Status Patient Status [ADT] Stat ADT 11/22/17 09:39 Active Abdomen Pelvis wo Cont [CT] Stat Exams 11/22/17 06:24 Taken UA W/MICROSCOPIC [URIN] Stat Lab 11/22/17 06:[address] abdomen- no acute findings. a/p bloody diarrhea- will give patient iv fluids , will start patient on ciprofloxacin 400 mg iv bid , metronidazole 500 mg iv qid, stool culture , blood culture , stool for wbc , stool for c diff DD is infectious colitis vs ulcerative colitis ,gi bleed. Will order ESR , CRP , will start patient on solumedrol 60 mg iv daily depression, HTN c, arrythmia- will continue patient on her home medications as per reconciliations dvt prof : scd Gi prof : protonix 40 mg iv q 12h
[2017-11-22] MEDS ORDERED: Ondansetron 4 MG/2 ML SDV IVPUSH PRN (12:04)
[2017-11-22] MEDS ORDERED: Morphine 4 MG/ML Syringe IVPUSH PRN (12:04)
[2017-11-22] MEDS ORDERED: Sodium Chloride 0.9% 10 ML Syringe FLUSH PRN (12:04)
[2017-11-22] MEDS ORDERED: Sodium Chloride 0.9% 2.5 ML Syringe FLUSH PRN (12:04)
[2017-11-22] MEDS: HYDROmorphone 1 MG/ML Syringe IVPUSH PRN ×4 (12:19→21:08)
[2017-11-22] MEDS: Lactated Ringers 1,000 ML IV SCH (13:07)
[2017-11-22] MEDS ORDERED: Diclofenac Sodium 1 APPLIC TOP PRN (13:10)
[2017-11-22] MEDS ORDERED: ORPHENADRINE 100 MG PO PRN (13:10)
[2017-11-22] MEDS ORDERED: ALPRAZolam 0.5 MG Tab PO PRN (13:10)
[2017-11-22] MEDS ORDERED: CAFFEINE PO PRN (14:08)
[2017-11-22] MEDS ORDERED: BUTALB PO PRN (14:08)
[2017-11-22] MEDS ORDERED: ACETAMINOPHEN PO PRN (14:08)
[2017-11-22] MEDS: methylPREDNISolone Sodium Succinate 125 MG/2 ML SDV IVPUSH SCH (14:32)
[2017-11-22] MEDS: Ciprofloxacin in D5W 400 MG in Premix Bag 1 BAG IV SCH ×2 (14:35)
--- NOTE | 2017-11-22 15:33 | CT ---
EXAM DATE: 11/22/17 PATIENT'S AGE: 62 Patient: YULI SWAIN Facility: [place], [place] Site . Site : 1955 Study: CT Abdomen/Pelvis [id number]/23/2018 7:34:24 AM Ordering Physician: Rahul Alfaro Final Report: INDICATION: Abdominal pain. Vomiting. Rectal bleeding. TECHNIQUE: Noncontrast CT of the abdomen and pelvis. FINDINGS: Pacemaker lead wires are identified within the right side of the heart. Probable calcified mediastinal lymph nodes. The included lung bases are clear. The unenhanced liver, spleen, pancreas, gallbladder, and adrenal glands are normal. The kidneys are normal without stones or obstruction. No renal masses identified. Vascular calcification within a normal caliber abdominal aorta and iliac arteries. Normal inferior vena cava. There is no evidence for small or large bowel obstruction or ileus and there is no evidence for ascites or lymphadenopathy. No evidence for colitis. The uterus and ovaries are likely surgically absent. The included skeleton is negative for acute fractures. IMPRESSION: No acute abdominopelvic process identified. Please note that all CT scans at this facility use dose modulation, iterative reconstruction, and/or weight-based dosing when appropriate to reduce radiation dose to as low as reasonably achievable. Dictated by Yash Aviles MD @ Nov 22 2017 7:42AM (Electronic Signature) Report Signed by Proxy. [facility]
[2017-11-22] MEDS: metroNIDAZOLE/Normal Saline 500 MG in Premix Bag 1 BAG IV SCH ×2 (17:31→23:15)
[2017-11-22] MEDS: atorvaSTATin 20 MG Tab PO SCH (20:59)
[2017-11-22] MEDS ORDERED: Lactated Ringers 1,000 ML IV SCH (22:15)
[2017-11-22] MEDS: Pantoprazole 40 MG Vial IVPUSH SCH (23:15)
[2017-11-23] MEDS: HYDROmorphone 1 MG/ML Syringe IVPUSH PRN ×8 (00:19→22:31)
[2017-11-23] MEDS: Lactated Ringers 1,000 ML IV SCH ×2 (02:08→13:44)
[2017-11-23] MEDS: Ciprofloxacin in D5W 400 MG in Premix Bag 1 BAG IV SCH ×4 (02:46→13:44)
[2017-11-23] MEDS: metroNIDAZOLE/Normal Saline 500 MG in Premix Bag 1 BAG IV SCH ×3 (05:20→17:33)
[2017-11-23 05:58] LABS: CHLORIDE,CL 106 mmol/L (98-107); SODIUM,NA 139 mmol/L (136-145)
[2017-11-23] MEDS ORDERED: Pantoprazole 40 MG Tab.CR PO SCH (07:30)
[2017-11-23] MEDS ORDERED: Lisinopril 10 MG Tab PO SCH (09:00)
[2017-11-23] MEDS ORDERED: Aspirin 81 MG Tab.Chew PO SCH ×2 (09:00)
[2017-11-23] MEDS ORDERED: Metoprolol Succinate 50 MG Tab.ER PO SCH (09:00)
[2017-11-23] MEDS: Spironolactone 25 MG Tab PO SCH (09:13)
[2017-11-23] MEDS: Metoprolol Succinate 100 MG Tab.ER PO SCH (09:13)
[2017-11-23] MEDS: Lisinopril 10 MG Tab PO SCH (09:14)
[2017-11-23] MEDS: amLODIPine 5 MG Tab PO SCH (09:14)
[2017-11-23] MEDS: Desvenlafaxine Succinate [Pristiq] 100 MG PO SCH (09:14)
[2017-11-23] MEDS: methylPREDNISolone Sodium Succinate 125 MG/2 ML SDV IVPUSH SCH ×3 (09:17→22:35)
[2017-11-23] MEDS: Pantoprazole 40 MG Vial IVPUSH SCH ×2 (11:13→22:21)
--- NOTE | 2017-11-23 19:21 | PCM.PN ---
- General Info Date of Service: 11/23/17 Admission Dx/Problem (Free Text): Admission Diagnosis/Problem Admission Diagnosis/Problem Abdominal pain, bloody diarrhea Subjective Update: Patient says she had about 1 cup of red blood per rectum in the morning and some stool , no other episodes during the day. Her abdominal pain is suprapubic, cramping , more localized . her pain mildly improved from 7/10 top 6.5 in 10 . Received today Dilaudid 1 mg q3 h around the clock. No fever , no leucocytosis , no elevation in lactate. She says she had 2 times blood per rectum yesterday and was about 1 cup each time. Patient received fluids yesterday , 3.5 l in 24 h and Hb dropped just 1.5 point, I consider this stable hemoglobin considering that she received large amount fluid hydration. Discuss her case with Dr. De La O GI at [facility] and he recommended that if patient pain is not improving after 24-48 h of iv antibiotics and steroids , she should be transferred to have flexible sigmoidoscopy and colonoscopy to evaluate for type of colitis: Ischemic , inflammatory or infectious. Patient should also be transferred immediately if she has signs of fever , worsening abdominal pain , increase lactate. Pain Score: 6 - Review of Systems General: Reports: No Symptoms HEENT: Reports: No Symptoms Pulmonary: Reports: No Symptoms Cardiovascular: Reports: No Symptoms Gastrointestinal: Reports: Abdominal Pain, Hematochezia, Nausea Genitourinary: Reports: No Symptoms Musculoskeletal: Reports: No Symptoms Skin: Reports: No Symptoms Neurological: Reports: No Symptoms Psychiatric: Reports: No Symptoms - Patient Data Vitals - Most Recent: Last Vital Signs Temp 97.8 F 11/23/17 16:00 Pulse 95 11/23/17 16:00 Resp 20 11/23/17 16:00 BP 140/78 11/23/17 16:00 Pulse Ox 93 L 11/23/17 16:00 Weight - Most Recent: 229 lb 9.6 oz I&O - Last 24 Hours: Intake & Output 11/23/17 11/23/17 11/23/17 06:59 14:59 22:59 Intake Total 2418 Output Total 300 Balance 2118 Lab Results Last 24 Hours: Laboratory Results - last 24 hr 11/23/17 11/23/17 11/23/17 Range/Units 05:10 05:10 15:54 WBC 7.73 (4.0-11.0) K/uL RBC 4.02 L (4.30-5.90) M/uL Hgb 12.4 (12.0-16.0) g/dL Hct 36.6 (36.0-46.0) % MCV 91.0 (80.0-98.0) fL MCH 30.8 (27.0-32.0) pg MCHC 33.9 (31.0-37.0) g/dL RDW Std Deviation 42.7 (28.0-62.0) fl RDW Coeff of Carlos 13 (11.0-15.0) % Plt Count 216 (150-400) K/uL MPV 9.10 (7.40-12.00) fL Neut % (Auto) 86.1 H (48.0-80.0) % Lymph % (Auto) 11.4 L (16.0-40.0) % [place] % (Auto) 2.5 (0.0-15.0) % Eos % (Auto) 0.0 (0.0-7.0) % Baso % (Auto) 0.0 (0.0-1.5) % Neut # (Auto) 6.7 H (1.4-5.7) K/uL Lymph # (Auto) 0.9 (0.6-2.4) K/uL [place] # (Auto) 0.2 (0.0-0.8) K/uL Eos # (Auto) 0.0 (0.0-0.7) K/uL Baso # (Auto) 0.0 (0.0-0.1) K/uL Nucleated RBC % 0.0 /100WBC Nucleated RBCs # 0 K/uL Lactate 1.0 (0.20-2.00) mmol/L Sodium 139 (136-145) mmol/L Potassium 4.4 (3.5-5.1) mmol/L Chloride 106 (98-107) mmol/L Carbon Dioxide 27.1 (21.0-32.0) mmol/L BUN 17 (7.0-18.0) mg/dL Creatinine 0.8 (0.6-1.0) mg/dL Est Cr Clr Drug Dosing 61.86 mL/min Estimated GFR (MDRD) > 60.0 ml/min Glucose 150 H (74-106) mg/dL Calcium 8.7 (8.5-10.1) mg/dL Sameer Results Last 24 Hours: Microbiology 11/22/17 14:50 Campylobacter Antigen Assay - Final Stool / Feces NEGATIVE CAMPYLOBACTER AG - Final NEGATIVE FOR SHIGA TOXIN 1 - Final NEGATIVE FOR SHIGA TOXIN 2 11/22/17 14:50 Clostridium difficile Toxin A & B - Final Stool / Feces Negative for C.Diff Toxin/AG 11/22/17 14:50 Stool for WBCs - Final Stool / Feces POSITIVE FOR WBC'S Med Orders - Current: Current Medications Alprazolam (Xanax) 0.5 mg PO DAILY PRN PRN Reason: Anxiety Amlodipine Besylate (Norvasc) 10 mg PO DAILY [facility] Last Admin: 11/23/17 09:14 Dose: Not Given Atorvastatin Calcium (Lipitor) 20 mg PO BEDTIME [facility] Last Admin: 11/22/17 20:59 Dose: 20 mg Hydromorphone HCl (Dilaudid) 1 mg IVPUSH Q2H PRN PRN Reason: Pain (severe 7-10) Last Admin: 11/23/17 17:29 Dose: 1 mg Lactated Ringer's (Ringers, Lactated) 1,000 mls @ 125 mls/hr IV ASDIRECTED [facility] Last Admin: 11/23/17 13:44 Dose: 125 mls/hr Ciprofloxacin/Dextrose 400 mg/ (Premix) 200 mls @ 200 mls/hr IV Q12H [facility] Last Admin: 11/23/17 13:44 Dose: 200 mls/hr Metronidazole 500 mg/ Premix 100 mls @ 100 mls/hr IV QID [facility] Last Admin: 11/23/17 17:33 Dose: 100 mls/hr Potassium Chloride/Dextrose/Sod Cl (D5 1/2 Ns W/ 20 Meq/L Kcl) 1,000 mls @ 150 mls/hr IV ASDIRECTED [facility] Lisinopril (Prinivil) 40 mg PO DAILY [facility] Last Admin: 11/23/17 09:14 Dose: Not Given Methylprednisolone Sodium Succinate (Solu-Medrol) 60 mg IVPUSH Q6H [facility] Last Admin: 11/23/17 17:41 Dose: 60 mg Metoprolol Succinate (Toprol Xl) 200 mg PO DAILY [facility] Last Admin: 11/23/17 09:13 Dose: 200 mg Ondansetron HCl (Zofran) 4 mg IVPUSH Q4H PRN PRN Reason: Nausea Last Admin: 11/22/17 19:06 Dose: 4 mg Pantoprazole Sodium (Protonix Iv) 40 mg IVPUSH Q12H [facility] Last Admin: 11/23/17 11:13 Dose: 40 mg Desvenlafaxine Succinate [Pristiq] 100 Mg 1 each PO DAILY [facility] Last Admin: 11/23/17 09:14 Dose: 1 each Diclofenac Sodium 1 (Applic) 1 each TOP QID PRN PRN Reason: Pain Orphenadrine 100 Mg 1 each PO BID PRN PRN Reason: Arrhythmia Butalb/Acetaminophen /Caffeine [Butalb- Acetamin-Caff 50-30 2 each PO Q4H PRN PRN Reason: Headache Quetiapine Fumarate (Seroquel) 150 mg PO BEDTIME [facility] Sodium Chloride (Saline Flush) 10 ml FLUSH ASDIRECTED PRN PRN Reason: Keep Vein Open Sodium Chloride (Saline Flush) 2.5 ml FLUSH ASDIRECTED PRN PRN Reason: Keep Vein Open Spironolactone (Aldactone) 25 mg PO DAILY [facility] Last Admin: 11/23/17 09:13 Dose: 25 mg Discontinued Medications Aspirin (Aspirin) 81 mg PO DAILY [facility] Aspirin (Aspirin) 81 mg PO DAILY [facility] Sodium Chloride (Normal Saline) 1,000 mls @ 999 mls/hr IV STAT ONE Stop: 11/22/17 07:04 Last Admin: 11/22/17 06:24 Dose: 999 mls/hr Lactated Ringer's (Ringers, Lactated) 1,000 mls @ 9,999 mls/hr IV ASDIRECTED [facility] Last Admin: 11/22/17 23:22 Dose: 9,999 mls/hr Lisinopril (Prinivil) 10 mg PO DAILY [facility] Methylprednisolone Sodium Succinate (Solu-Medrol) 60 mg IVPUSH DAILY [facility] Last Admin: 11/23/17 09:17 Dose: 60 mg Metoprolol Succinate (Toprol Xl) 50 mg PO DAILY [facility] Morphine Sulfate (Morphine) 2 mg IVPUSH ONETIME ONE Stop: 11/22/17 06:31 Last Admin: 11/22/17 06:39 Dose: 2 mg Morphine Sulfate (Morphine) 2 mg IVPUSH ONETIME ONE Stop: 11/22/17 07:43 Last Admin: 11/22/17 07:51 Dose: 2 mg Morphine Sulfate (Morphine) 2 mg IVPUSH Q2H PRN PRN Reason: Pain (severe 7-10) Stop: 11/23/17 12:05 Ondansetron HCl (Zofran) 8 mg IVPUSH ONETIME ONE Stop: 11/22/17 06:05 Last Admin: 11/22/17 06:26 Dose: 8 mg Pantoprazole Sodium (Protonix) 40 mg PO ACBREAKFAST LEI Quetiapine Fumarate (Seroquel) 150 mg PO DAILY [facility] Last Admin: 11/23/17 09:26 Dose: Not Given - Exam General: Alert, Oriented HEENT: Pupils Equal, Pupils Reactive Neck: Supple, Trachea Midline, No JVD, No Thyromegaly Lungs: Clear to Auscultation, Normal Respiratory Effort Cardiovascular: Regular Rate, Regular Rhythm, No Murmurs GI/Abdominal Exam: Normal Bowel Sounds, No Mass, Guarding, Tender. No: Distended, Rigid Back Exam: Normal Inspection Extremities: Normal Inspection Skin: Warm, Dry Neurological: No New Focal Deficit Psy/Mental Status: Alert, Normal Affect - Problem List & Annotations (1) Morbid obesity with BMI of 40.0-44.9, adult SNOMED Code(s): 024230614 Code(s): E66.01 - MORBID (SEVERE) OBESITY DUE TO EXCESS CALORIES; Z68.41 - BODY MASS INDEX (BMI) 40.0-44.9, ADULT Status: Acute Current Visit: Yes (2) Abdominal pain SNOMED Code(s): 23159180 Code(s): R10.9 - UNSPECIFIED ABDOMINAL PAIN Status: Acute Current Visit: Yes (3) Rectal bleeding SNOMED Code(s): 64862444 Code(s): K62.5 - HEMORRHAGE OF ANUS AND RECTUM Status: Acute Current Visit: Yes (4) Depression SNOMED Code(s): 43297054 Code(s): F32.9 - MAJOR DEPRESSIVE DISORDER, SINGLE EPISODE, UNSPECIFIED Status: Acute Current Visit: Yes (5) Colitis SNOMED Code(s): 84574599 Code(s): K52.9 - NONINFECTIVE GASTROENTERITIS AND COLITIS, UNSPECIFIED Status: Acute Current Visit: Yes - Problem List Review Problem List Initiated/Reviewed/Updated: Yes - My Orders Last 24 Hours: My Active Orders 11/22/17 21:00 atorvaSTATin [Lipitor] 20 mg PO BEDTIME 11/22/17 22:30 Pantoprazole [ProTONIX IV] 40 mg IVPUSH Q12H 11/23/17 09:00 Lisinopril [Prinivil] 40 mg PO DAILY Metoprolol Succinate [Toprol XL] 200 mg PO DAILY Patient's Own Medication [Ptom] 1 each PO DAILY Spironolactone [Aldactone] 25 mg PO DAILY amLODIPine [Norvasc] 10 mg PO DAILY 11/23/17 17:30 D5 1/2 NS w/ 20 mEq/L KCl 1,000 ml IV ASDIRECTED methylPREDNISolone Sod Succ [Solu-MEDROL] 60 mg IVPUSH Q6H 11/23/17 21:00 QUEtiapine [SEROquel] 150 mg PO BEDTIME 11/24/17 05:11 BASIC METABOLIC PANEL,BMP [CHEM] AM CBC WITH AUTO DIFF [HEME] AM 11/25/17 05:11 BASIC METABOLIC PANEL,BMP [CHEM] AM CBC WITH AUTO DIFF [HEME] AM 11/26/17 05:11 BASIC METABOLIC PANEL,BMP [CHEM] AM CBC WITH AUTO DIFF [HEME] AM - Plan Plan:: Assessment and plan Bleeding per rectum and abdominal pain Colitis: DD :ischemic , inflammatory or infectious mild improvement- will continue antibiotics and iv solumedrol , increased to 60 mg iv q 6 h , iv fluids changed to 1/2 NS with 20 Dave of Kcl at 150 cc /h , will motor vs, Hb , signs of fever , will monitor abdominal pain and will order serial abdominal exams by nurse Depression- continue Seroquel 150 mg po q hs and desfelafaxine 100 mg po daily , Xanax 0.5 mg po TID HTn- controlled , low diastolic blood pressure today ( wide pulse pressure ,) , the vasodilatators were given later( nifedipine and lisinopril) DVt prof: scd Gi bleed: protonix 40 mg iv q 12h
[2017-11-23] MEDS: D5 1/2 NS w/ 20 mEq/L KCl 1,000 ML IV SCH (19:38)
[2017-11-23] MEDS: atorvaSTATin 20 MG Tab PO SCH (22:21)
[2017-11-24] MEDS: metroNIDAZOLE/Normal Saline 500 MG in Premix Bag 1 BAG IV SCH ×3 (00:45→12:13)
[2017-11-24] MEDS: Ciprofloxacin in D5W 400 MG in Premix Bag 1 BAG IV SCH ×4 (02:41→14:43)
[2017-11-24] MEDS: HYDROmorphone 1 MG/ML Syringe IVPUSH PRN ×7 (02:50→16:42)
[2017-11-24] MEDS: D5 1/2 NS w/ 20 mEq/L KCl 1,000 ML IV SCH ×2 (05:02→16:52)
[2017-11-24] MEDS: methylPREDNISolone Sodium Succinate 125 MG/2 ML SDV IVPUSH SCH ×2 (05:04→11:03)
[2017-11-24] MEDS: amLODIPine 5 MG Tab PO SCH (08:53)
[2017-11-24] MEDS: Lisinopril 10 MG Tab PO SCH (08:53)
[2017-11-24] MEDS: Metoprolol Succinate 100 MG Tab.ER PO SCH (08:53)
[2017-11-24] MEDS: Spironolactone 25 MG Tab PO SCH (08:54)
[2017-11-24] MEDS: Desvenlafaxine Succinate [Pristiq] 100 MG PO SCH (09:23)
[2017-11-24] MEDS: Pantoprazole 40 MG Vial IVPUSH SCH (11:03)
--- NOTE | 2017-11-24 11:40 | PCM.DCSUM1 ---
Discharge Summary - Hospital Course Free Text/Narrative:: Patient is 62 years old female admitted in the hospital with abdominal pain and bloody diarrhea, had stool cultures , stool for WBCs , stool for c diff and negative blood cultures negative. CT abdomen did not show colitis or obstruction and there were no acute findings on the CT of the abdomen and pelvis Patient continued to have abdominal pain localized in the in the hypogastru, moderate to severe in intensity. ESR was 11 , lactate was 1. No leukocytosis during her hospital stay. Patient was treated at admission but ciprofloxacin 400 mg IV every 12 hours and metronidazole 500 mg IV every 6 hours. she was also given Solu-Medrol 60 mg IV daily for possible ulcerative colitis. Had bloody diarrhea decreased and resolved today. She had 2 bowel movements of admission and there was about 1 cup of blood as per patient with each bowel movement and next day she had only 1 bowel movement and bled about 1 cup of blood , as per patient. Today patient did not have any diarrhea or bleeding per rectum, but she still complains of moderate to severe pain in the lower abdomen, no guarding , no rebound at examination. I have discussed with Dr. De La O planetarium technician at [facility] and she recommended if patient abdominal pain does not improve after 24 -48 hours of IV antibiotics and Solu-Medrol she should have a flexible sigmoidoscopy or colonoscopy for diagnostic of colitis which could be inflammatory ,infectious or ischemic. Because patient is morbidly obese and has pacemaker and this is a short stay hospital in case she needs surgery , this procedure cannot be done here . I have called the emergency room at [place] and the patient was accepted for transfer by Dr. Boo at 11:30 am Ambulance is not available until 4:35 PM, patient will be transferred to [place] at this time. Possible patient has pain in the abdomen secondary to her irritable bowel syndrome she has history of IBS and that the patient is not bleeding and diarrhea stopped. Patient NPO since admission , Hb stable , no leucocytosis , no fever , on iv fluids. she was also given protonix 40 mg ivp q 12 h for Gi bleed HPI Initial Comments: Patient 62 y old female with PMhx of IBS , s/p 5 abdominal surgeries for endometriosis presented to hospital due to abdominal pain and bloody diarrhea that started Monday night. She was not feeling well since and had nausea and vomiting. She had about 5-6 bloody bowel movements /day and vomited 3 times since her symptoms started. Her mother had pancreatic cancer and suffered toward the end of her life for about 5-10 y of colitis with bloody stool , as per patient. Patient denies similar symptoms before. - Discharge Data Discharge Date: 11/24/17 Discharge Disposition: Home, Self-Care 01 Condition: Fair - Discharge Diagnosis/Problem(s) (1) Morbid obesity with BMI of 40.0-44.9, adult SNOMED Code(s): 573684082 ICD Code: E66.01 - MORBID (SEVERE) OBESITY DUE TO EXCESS CALORIES; Z68.41 - BODY MASS INDEX (BMI) 40.0-44.9, ADULT Status: Acute Current Visit: Yes (2) Abdominal pain SNOMED Code(s): 93485357 ICD Code: R10.9 - UNSPECIFIED ABDOMINAL PAIN Status: Acute Current Visit : Yes (3) Rectal bleeding SNOMED Code(s): 59844825 ICD Code: K62.5 - HEMORRHAGE OF ANUS AND RECTUM Status: Acute Current Visit: Yes (4) Depression SNOMED Code(s): 97927712 ICD Code: F32.9 - MAJOR DEPRESSIVE DISORDER, SINGLE EPISODE, UNSPECIFIED Status: Acute Current Visit: Yes (5) Colitis SNOMED Code(s): 44166342 ICD Code: K52.9 - NONINFECTIVE GASTROENTERITIS AND COLITIS, UNSPECIFIED Status: Acute Current Visit: Yes - Patient Instructions Diet: NPO Activity: As Tolerated - Discharge Plan Home Medications: Home Meds ALPRAZolam [Alprazolam] 0.5 - 1 mg PO DAILY PRN 11/10/14 [History] amLODIPine Besylate [Amlodipine Besylate] 10 mg PO DAILY 11/10/14 [History] Desvenlafaxine Succinate [Pristiq] 100 mg PO DAILY 05/30/17 [History] Orphenadrine [Norflex] 100 mg PO BID PRN 05/31/17 [History] Pantoprazole Sodium 40 mg PO ACBREAKFAST 05/31/17 [History] atorvaSTATin [Lipitor] 20 mg PO BEDTIME #30 tablet 05/31/17 [Rx] Aspirin 81 mg PO DAILY 11/22/17 [History] Butalb/Acetaminophen/Caffeine [Mbchcm-Wuzexcsl-Lvze 50-300-40] 1 - 2 cap PO Q4H PRN 11/22/17 [History] Lisinopril 40 mg PO DAILY 11/22/17 [History] Metoprolol Succinate 200 mg PO DAILY 11/22/17 [History] QUEtiapine [SEROquel] 150 mg PO BEDTIME 11/22/17 [History] Spironolactone [Aldactone] 25 mg PO DAILY 11/22/17 [History] Patient Handouts: Abdominal Pain, Adult, [id number] Referrals: Dhiraj Hein PA [Primary Care Provider] - 12/06/17 11:00 am - General Info Date of Service: 11/24/17 - Review of Systems General: Reports: No Symptoms HEENT: Reports: No Symptoms Pulmonary: Reports: No Symptoms Cardiovascular: Reports: No Symptoms Gastrointestinal: Reports: Abdominal Pain Genitourinary: Reports: No Symptoms Musculoskeletal: Reports: No Symptoms Skin: Reports: No Symptoms Neurological: Reports: No Symptoms Psychiatric: Reports: No Symptoms - Patient Data Vitals - Most Recent: Last Vital Signs Temp 97 F 11/24/17 08:00 Pulse 82 11/24/17 08:53 Resp 16 11/24/17 08:00 BP 137/69 11/24/17 08:53 Pulse Ox 97 11/24/17 08:00 Weight - Most Recent: 229 lb 9.6 oz I&O - Last 24 hours: Intake & Output 11/23/17 11/24/17 11/24/17 22:59 06:59 14:59 Intake Total 1500 Output Total 900 Balance 600 Lab Results - Last 24 hrs: Laboratory Results - last 24 hr 11/23/17 11/24/17 11/24/17 Range/Units 15:54 04:48 04:48 WBC 8.08 (4.0-11.0) K/uL RBC 3.94 L (4.30-5.90) M/uL Hgb 12.3 (12.0-16.0) g/dL Hct 36.4 (36.0-46.0) % MCV 92.4 (80.0-98.0) fL MCH 31.2 (27.0-32.0) pg MCHC 33.8 (31.0-37.0) g/dL RDW Std Deviation 43.7 (28.0-62.0) fl RDW Coeff of Carlos 13 (11.0-15.0) % Plt Count 221 (150-400) K/uL MPV 8.90 (7.40-12.00) fL Neut % (Auto) 89.6 H (48.0-80.0) % Lymph % (Auto) 8.2 L (16.0-40.0) % [place] % (Auto) 2.2 (0.0-15.0) % Eos % (Auto) 0.0 (0.0-7.0) % Baso % (Auto) 0.0 (0.0-1.5) % Neut # (Auto) 7.2 H (1.4-5.7) K/uL Lymph # (Auto) 0.7 (0.6-2.4) K/uL [place] # (Auto) 0.2 (0.0-0.8) K/uL Eos # (Auto) 0.0 (0.0-0.7) K/uL Baso # (Auto) 0.0 (0.0-0.1) K/uL Nucleated RBC % 0.0 /100WBC Nucleated RBCs # 0 K/uL Lactate 1.0 (0.20-2.00) mmol/L Sodium 138 (136-145) mmol/L Potassium 4.3 (3.5-5.1) mmol/L Chloride 105 (98-107) mmol/L Carbon Dioxide 28.6 (21.0-32.0) mmol/L BUN 15 (7.0-18.0) mg/dL Creatinine 1.1 H (0.6-1.0) mg/dL Est Cr Clr Drug Dosing 44.99 mL/min Estimated GFR (MDRD) 50.7 ml/min Glucose 152 H (74-106) mg/dL Calcium 8.8 (8.5-10.1) mg/dL JUAN Results - Last 24 hrs: Microbiology 11/22/17 14:50 Helicobacter pylori Antigen - Final Stool / Feces 11/22/17 14:50 Stool Culture - Final Stool / Feces NO SALMONELLA, SHIGELLA,OR E.COLI O157 ISOLATED Campylobacter Antigen Assay - Final NEGATIVE CAMPYLOBACTER AG - Final NEGATIVE FOR SHIGA TOXIN 1 - Final NEGATIVE FOR SHIGA TOXIN 2 Med Orders - Current: Current Medications Alprazolam (Xanax) 0.5 mg PO DAILY PRN PRN Reason: Anxiety Amlodipine Besylate (Norvasc) [address] [facility] Last Admin: 11/24/17 08:53 Dose: 10 mg Atorvastatin Calcium (Lipitor) [address] [facility] Last Admin: 11/23/17 22:21 Dose: 20 mg Hydromorphone HCl (Dilaudid) 1 mg IVPUSH Q2H PRN PRN Reason: Pain (severe 7-10) Last Admin: 11/24/17 11:03 Dose: 1 mg Ciprofloxacin/Dextrose 400 mg/ (Premix) 200 mls @ 200 mls/hr IV Q12H [facility] Last Infusion: 11/24/17 03:45 Dose: Infused Metronidazole 500 mg/ Premix 100 mls @ 100 mls/hr IV QID [facility] Last Infusion: 11/24/17 06:15 Dose: Infused Potassium Chloride/Dextrose/Sod Cl (D5 1/2 Ns W/ 20 Meq/L Kcl) 1,000 mls @ 150 mls/hr IV ASDIRECTED [facility] Last Admin: 11/24/17 05:02 Dose: 150 mls/hr Lisinopril (Prinivil) [address] [facility] Last Admin: 11/24/17 08:53 Dose: 40 mg Methylprednisolone Sodium Succinate (Solu-Medrol) [address] [facility] Metoprolol Succinate (Toprol Xl) [address] [facility] Last Admin: 11/24/17 08:53 Dose: 200 mg Ondansetron HCl (Zofran) 4 mg IVPUSH Q4H PRN PRN Reason: Nausea Last Admin: 11/22/17 19:06 Dose: 4 mg Pantoprazole Sodium (Protonix Iv) [address] [facility] Last Admin: 11/24/17 11:03 Dose: 40 mg Desvenlafaxine Succinate [Pristiq] 100 Mg [address] [facility] Last Admin: 11/24/17 09:23 Dose: 1 each Diclofenac Sodium 1 (Applic) 1 each TOP QID PRN PRN Reason: Pain Orphenadrine 100 Mg 1 each PO BID PRN PRN Reason: Arrhythmia Butalb/Acetaminophen /Caffeine [Butalb- Acetamin-Caff 50-30 2 each PO Q4H PRN PRN Reason: Headache Quetiapine Fumarate (Seroquel) [address] [facility] Last Admin: 11/23/17 22:05 Dose: Not Given Sodium Chloride (Saline Flush) 10 ml FLUSH ASDIRECTED PRN PRN Reason: Keep Vein Open Sodium Chloride (Saline Flush) 2.5 ml FLUSH ASDIRECTED PRN PRN Reason: Keep Vein Open Spironolactone (Aldactone) [address] [facility] Last Admin: 11/24/17 08:54 Dose: 25 mg Discontinued Medications Aspirin (Aspirin) [address] [facility] Aspirin (Aspirin) [address] [facility] Sodium Chloride (Normal Saline) 1,000 mls @ 999 mls/hr IV STAT ONE Stop: 11/22/17 07:04 Last Admin: 11/22/17 06:24 Dose: 999 mls/hr Lactated Ringer's (Ringers, Lactated) 1,000 mls @ 125 mls/hr IV ASDIRECTED [facility] Last Admin: 11/23/17 13:44 Dose: 125 mls/hr Lactated Ringer's (Ringers, Lactated) 1,000 mls @ 9,999 mls/hr IV ASDIRECTED [facility] Last Admin: 11/22/17 23:22 Dose: 9,999 mls/hr Lisinopril (Prinivil) [address] [facility] Methylprednisolone Sodium Succinate (Solu-Medrol) [address] [facility] Last Admin: 11/23/17 09:17 Dose: 60 mg Methylprednisolone Sodium Succinate (Solu-Medrol) [address] [facility] Last Admin: 11/24/17 11:03 Dose: 60 mg Metoprolol Succinate (Toprol Xl) [address] [facility] Morphine Sulfate (Morphine) 2 mg IVPUSH ONETIME ONE Stop: 11/22/17 06:31 Last Admin: 11/22/17 06:39 Dose: 2 mg Morphine Sulfate (Morphine) 2 mg IVPUSH ONETIME ONE Stop: 11/22/17 07:43 Last Admin: 11/22/17 07:51 Dose: 2 mg Morphine Sulfate (Morphine) 2 mg IVPUSH Q2H PRN PRN Reason: Pain (severe 7-10) Stop: 11/23/17 12:05 Ondansetron HCl (Zofran) 8 mg IVPUSH ONETIME ONE Stop: 11/22/17 06:05 Last Admin: 11/22/17 06:26 Dose: 8 mg Pantoprazole Sodium (Protonix) [address] [facility] Quetiapine Fumarate (Seroquel) [address] [facility] Last Admin: 11/23/17 09:26 Dose: Not Given - Exam Quality Assessment: Reports: Supplemental Oxygen General: Reports: Alert, Oriented HEENT: Reports: Pupils Equal, Pupils Reactive Neck: Reports: Supple, Trachea Midline Lungs: Reports: Clear to Auscultation Cardiovascular: Reports: Regular Rate, Regular Rhythm GI/Abdominal Exam: Normal Bowel Sounds, Soft, Non-Tender Back Exam: Reports: Normal Inspection Skin: Reports: Warm, Dry Neurological: Reports: No New Focal Deficit
[2017-11-24 16:55] VITALS: BP 102/49
[2017-11-25] MEDS ORDERED: methylPREDNISolone Sodium Succinate 40 MG/1 ML SDV IVPUSH SCH (09:00)
== END 2017-11-24 17:15 ==
LOC: MW.ED 05:50 → MW.MS 09:39
PROVIDERS: ADMIT Internal Medicine; ATTEND Internal Medicine
DX: K92.1 Melena (principal); K52.9 Noninfective gastroenteritis and colitis, unspecified; G89.29 Other chronic pain; M54.9 Dorsalgia, unspecified; G43.909 Migraine, unspecified, not intractable, without status migrainosus; F41.9 Anxiety disorder, unspecified; F32.9 Major depressive disorder, single episode, unspecified; E66.01 Morbid (severe) obesity due to excess calories; Z68.41 Body mass index [BMI] 40.0-44.9, adult; Z79.82 Long term (current) use of aspirin; Z79.899 Other long term (current) drug therapy; Z88.1 Allergy status to other antibiotic agents; Z88.8 Allergy status to other drugs, medicaments and biological substances; Z98.890 Other specified postprocedural states
CPT/HCPCS: 36415; 74176; 80048; 80053; 81001; 82550; 83605; 83630; 83690; 84484; 85025; 85610; 85652; 86140; 87046; 87324; 87338; 87899; 93005; 96361; 96374; 96375; 96376; 99285; A9270; C9113; J0744; J1170; J2270; J2405; J2930; J3480; J7040; J7120; 99283; G0378

== ENCOUNTER 2019-12-16 08:36 | Observation (INO) | payer OTHER ==
[2019-12-16] MEDS ORDERED: Sodium Chloride 0.9% 10 ML Syringe FLUSH PRN (09:00)
[2019-12-16] MEDS ORDERED: Sodium Chloride 0.9% 2.5 ML Syringe FLUSH PRN (09:00)
[2019-12-16 09:39] LABS: BLOOD UREA NITROGEN,BUN 18 mg/dL (7.0-18.0); CARBON DIOXIDE,CO2 22.2 mmol/L (21.0-32.0); CHLORIDE,CL 101 mmol/L (98-107); GLUCOSE RANDOM 151 mg/dL (74-106); POTASSIUM,K 2.9 mmol/L (3.5-5.1); SODIUM,NA 142 mmol/L (136-145)
--- NOTE | 2019-12-16 09:48 | CR ---
Chest: 2 views of the chest were obtained. Comparison: No previous chest imaging is available. Heart size and mediastinum are normal. Scattered linear densities are seen within both sides of the chest most likely representing slight scarring. Lungs otherwise are clear. Pacemaker is noted. Bony structures are within normal limits for the patient's age. Impression: 1. Findings believed to be chronic. 2. Nothing acute is appreciated. Diagnostic code #2 This report was dictated in MDT
--- NOTE | 2019-12-16 09:59 | EDM.PDOC ---
ED HPI GENERAL MEDICAL PROBLEM - General Chief Complaint: Cardiovascular Problem Stated Complaint: CHEST COMPLAINT Time Seen by Provider: 12/16/19 08:46 - History of Present Illness INITIAL COMMENTS - FREE TEXT/NARRATIVE: History of present illness: 64-year-old female presenting with tachycardic feeling heartbeats/irregular beating sensation and skipping over the last few days. She does report she has had several episodes of syncope over the last few days. She has a pacemaker in place that was placed 2 years ago, prior to that she had a different pacemaker for 6 years which she thinks was placed for bradycardia, rate in the 40s. Denies any chest pain or discomfort. Denies any difficulty breathing. She is not certain when she last had the pacemaker interrogated. No leg pain or swelling. Review of systems: As per history of present illness and below otherwise all systems reviewed and negative. Past medical history: As per history of present illness and as reviewed below otherwise noncontributory. Surgical history: As per history of present illness and as reviewed below otherwise noncontributory. Social history: No reported history of drug or alcohol abuse. Family history: As per history of present illness and as reviewed below otherwise noncontributory. Physical exam: GEN: no acute distress, well appearing HEENT: Atraumatic, normocephalic, mucous membranes moist, Neck: supple, nontender, trachea midline. Lungs: No respiratory distress. Heart: Regular, tachycardic, in the 110s, on EKG and monitor appears to be paced Abdomen: Soft, nondistended, nontender. Back: nontender Extremities: Atraumatic. Neurovascularly intact. Neuro: Awake, alert, oriented. Neuro Exam nonfocal. Skin: warm, dry, no lesions Diagnostics: EKG shows tachycardic rate, appears to be paced at this rate without clear P waves. No acute STEMI. Therapeutics: [] MDM: Dr. Baker, cardiology called to evaluate pacemaker/interrogate. He will, soon as he is able. Impression: [] Plan: [] Definitive disposition and diagnosis as appropriate pending reevaluation and review of above. - Related Data Allergies Allergy/AdvReac Type Severity Reaction Status Date / Time ceftriaxone sodium Allergy Cannot Verified 12/16/19 08:45 [From Rocephin] Remember erythromycin lactobionate Allergy Unknown Verified 12/16/19 08:45 [From Erythrocin] buspirone HCl [From BuSpar] AdvReac Other Verified 12/16/19 08:45 Home Meds: Home Meds ALPRAZolam [Alprazolam] 0.5 - 1 mg PO DAILY PRN 11/10/14 [History] amLODIPine Besylate [Amlodipine Besylate] 10 mg PO DAILY 11/10/14 [History] Desvenlafaxine Succinate [Pristiq] 100 mg PO DAILY 05/30/17 [History] Pantoprazole Sodium 40 mg PO ACBREAKFAST 05/31/17 [History] Butalb/Acetaminophen/Caffeine [Qsowyk-[id number]-Nftz 50-300-40] 1 - 2 cap PO Q4H PRN 11/22/17 [History] Lisinopril 40 mg PO DAILY 11/22/17 [History] Metoprolol Succinate 200 mg PO DAILY 11/22/17 [History] Baclofen 1 tab PO DAILY 12/16/19 [History] Past Medical History HEENT History: Reports: None Other HEENT History: Iritis Cardiovascular History: Reports: Pacemaker Respiratory History: Reports: None Gastrointestinal History: Reports: None Genitourinary History: Reports: None PLASTER LATHER History: Reports: Other (See Below) Other PLASTER LATHER History: 5 endometriosis surgeries, breast reduction Musculoskeletal History: Reports: None Neurological History: Reports: None Psychiatric History: Reports: Anxiety, Depression Endocrine/Metabolic History: Reports: None Hematologic History: Reports: None Immunologic History: Reports: None Oncologic (Cancer) History: Reports: None Other Oncologic History: skin cancer Dermatologic History: Reports: None Other Dermatologic History: Skin CA, squamous cell - Infectious Disease History Infectious Disease History: Reports: Chicken Pox, Measles, Mumps - Past Surgical History Head Surgeries/Procedures: Reports: None HEENT Surgical History: Reports: None Cardiovascular Surgical History: Reports: None Respiratory Surgical History: Reports: None GI Surgical History: Reports: None Female Surgical History: Reports: None Endocrine Surgical History: Reports: None Neurological Surgical History: Reports: None Musculoskeletal Surgical History: Reports: None Oncologic Surgical History: Reports: None Dermatological Surgical History: Reports: None Social & Family History - Family History Family Medical History: Noncontributory Oncologic: Reports: Pancreatic - Tobacco Use Smoking Status *Q: Never Smoker Second Hand Smoke Exposure: No - Caffeine Use Caffeine Use: Reports: None - Recreational Drug Use Recreational Drug Use: No ED ROS GENERAL - Review of Systems Review Of Systems: See Below (See dictation) ED EXAM, GENERAL - Physical Exam Exam: See Below (See dictation) Course - Vital Signs Last Recorded V/S: Last Vital Signs Temp 95.6 F L 12/16/19 08:43 Pulse 80 12/16/19 10:36 Resp 18 12/16/19 10:36 BP 149/71 H 12/16/19 10:36 Pulse Ox 97 12/16/19 10:36 - Orders/Labs/Meds Orders: Active Orders 24 hr Category Date Time Status Patient Status [ADT] Routine ADT 12/16/19 12:19 Active EKG Documentation Completion [RC] STAT Care 12/16/19 09:00 Active Telemetry Monitoring [Cardiac Monitoring] [RC] . Care 12/16/19 12:24 Active DIRECTED Sodium Chloride 0.9% [Saline Flush] Med 12/16/19 09:00 Active 10 ml FLUSH ASDIRECTED PRN Sodium Chloride 0.9% [Saline Flush] Med 12/16/19 09:00 Active 2.5 ml FLUSH ASDIRECTED PRN Saline Lock Insert [OM.PC] Stat Oth 12/16/19 09:00 Ordered Medication Orders Sodium Chloride (Saline Flush) 10 ml FLUSH ASDIRECTED PRN PRN Reason: Keep Vein Open Last Admin: 12/16/19 10:35 Dose: 10 ml Sodium Chloride (Saline Flush) 2.5 ml FLUSH ASDIRECTED PRN PRN Reason: Keep Vein Open Last Admin: 12/16/19 10:35 Dose: 2.5 ml Labs: Laboratory Tests 12/16/19 12/16/19 12/16/19 Range/Units 08:45 08:45 08:45 WBC 10.91 (4.0-11.0) K/uL RBC 5.07 (4.30-5.90) M/uL Hgb 16.6 H (12.0-16.0) g/dL Hct 47.6 H (36.0-46.0) % MCV 93.9 (80.0-98.0) fL MCH 32.7 H (27.0-32.0) pg MCHC 34.9 (31.0-37.0) g/dL RDW Std Deviation 43.1 (28.0-62.0) fl RDW Coeff of Carlos 13 (11.0-15.0) % Plt Count 349 (150-400) K/uL MPV 10.10 (7.40-12.00) fL Neut % (Auto) 42.6 L (48.0-80.0) % Lymph % (Auto) 46.4 H (16.0-40.0) % Karnes % (Auto) 9.3 (0.0-15.0) % Eos % (Auto) 1.4 (0.0-7.0) % Baso % (Auto) 0.3 (0.0-1.5) % Neut # (Auto) 4.7 (1.4-5.7) K/uL Lymph # (Auto) 5.1 H (0.6-2.4) K/uL Karnes # (Auto) 1.0 H (0.0-0.8) K/uL Eos # (Auto) 0.2 (0.0-0.7) K/uL Baso # (Auto) 0.0 (0.0-0.1) K/uL Nucleated RBC % 0.0 /100WBC Nucleated RBCs # 0 K/uL Sodium 142 (136-145) mmol/L Potassium 2.9 L (3.5-5.1) mmol/L Chloride 101 (98-107) mmol/L Carbon Dioxide 22.2 (21.0-32.0) mmol/L BUN 18 (7.0-18.0) mg/dL Creatinine 1.3 H (0.6-1.0) mg/dL Est Cr Clr Drug Dosing 37.12 mL/min Estimated GFR (MDRD) 41.5 ml/min Glucose 151 H (74-106) mg/dL Calcium 10.1 (8.5-10.1) mg/dL Magnesium (1.8-2.4) mg/dL Total Bilirubin 0.5 (0.2-1.0) mg/dL AST 37 (15-37) IU/L ALT 46 (14-63) IU/L Alkaline Phosphatase 84 (46-116) U/L Troponin I < 0.050 (0.000-0.056) ng/mL Total Protein 8.3 H (6.4-8.2) g/dL Albumin 4.7 (3.4-5.0) g/dL Globulin 3.6 (2.6-4.0) g/dL Albumin/Globulin Ratio 1.3 (0.9-1.6) Free T4 1.41 (0.76-1.46) ng/dL TSH 3rd Generation 4.39 H (0.36-3.74) uIU/mL 12/16/19 Range/Units 08:45 WBC (4.0-11.0) K/uL RBC (4.30-5.90) M/uL Hgb (12.0-16.0) g/dL Hct (36.0-46.0) % MCV (80.0-98.0) fL MCH (27.0-32.0) pg MCHC (31.0-37.0) g/dL RDW Std Deviation (28.0-62.0) fl RDW Coeff of Carlos (11.0-15.0) % Plt Count (150-400) K/uL MPV (7.40-12.00) fL Neut % (Auto) (48.0-80.0) % Lymph % (Auto) (16.0-40.0) % Karnes % (Auto) (0.0-15.0) % Eos % (Auto) (0.0-7.0) % Baso % (Auto) (0.0-1.5) % Neut # (Auto) (1.4-5.7) K/uL Lymph # (Auto) (0.6-2.4) K/uL Karnes # (Auto) (0.0-0.8) K/uL Eos # (Auto) (0.0-0.7) K/uL Baso # (Auto) (0.0-0.1) K/uL Nucleated RBC % /100WBC Nucleated RBCs # K/uL Sodium (136-145) mmol/L Potassium (3.5-5.1) mmol/L Chloride (98-107) mmol/L Carbon Dioxide (21.0-32.0) mmol/L BUN (7.0-18.0) mg/dL Creatinine (0.6-1.0) mg/dL Est Cr Clr Drug Dosing mL/min Estimated GFR (MDRD) ml/min Glucose (74-106) mg/dL Calcium (8.5-10.1) mg/dL Magnesium 1.7 L (1.8-2.4) mg/dL Total Bilirubin (0.2-1.0) mg/dL AST (15-37) IU/L ALT (14-63) IU/L Alkaline Phosphatase (46-116) U/L Troponin I (0.000-0.056) ng/mL Total Protein (6.4-8.2) g/dL Albumin (3.4-5.0) g/dL Globulin (2.6-4.0) g/dL Albumin/Globulin Ratio (0.9-1.6) Free T4 (0.76-1.46) ng/dL TSH 3rd Generation (0.36-3.74) uIU/mL Meds: Medications Generic Name Dose Route Start Last Admin Trade Name Freq PRN Reason Stop Dose Admin Sodium Chloride 10 ml 12/16/19 09:00 12/16/19 10:35 Saline Flush FLUSH 10 ml ASDIRECTED PRN Administration Keep Vein Open Sodium Chloride 2.5 ml 12/16/19 09:00 12/16/19 10:35 Saline Flush FLUSH 2.5 ml ASDIRECTED PRN Administration Keep Vein Open Discontinued Medications Generic Name Dose Route Start Last Admin Trade Name Freq PRN Reason Stop Dose Admin Potassium Chloride 40 meq 12/16/19 10:01 12/16/19 10:35 Klor-Con M20 PO 12/16/19 10:02 40 meq ONETIME ONE Administration - Re-Assessments/Exams Free Text/Narrative Re-Assessment/Exam: 12/16/19 10:45 Assessed the patient. She is feeling better. Her heart rate is improved. Discussed my recommendation for admission to the hospital for monitoring/ observation as well as plan to interrogate the pacemaker. She agrees with this plan. 12/16/19 11:01 CT scan with no pulmonary emboli, however there is a thyroid nodule and slightly abnormal appearance of the mediastinum. Discussed with the patient the radiology recommendations, recommending follow-up ultrasound of the thyroid and repeat CT scan in the chest in 6 months. Also annotated copy of her CT scan results were given to her for her records. 12/16/19 12:17 Dr. Baker paged again, he will come see the patient and interrogate the pacemaker. Dr. Leal called. He accepts the patient for observation. 12/16/19 12:58 Dr. Baker came to evaluate the patient and interrogate the pacemaker. He reports some episodes of an arrhythmia, possibly atrial fibrillation as atrial tachycardia. However the pacemaker is functioning normally battery functional and with no V. tach. No findings based on pacemaker interrogation to account for the patient's syncopal episodes. Departure - Departure Time of Disposition: 12:18 Disposition: Refer to Observation Clinical Impression: Palpitations Syncopal episodes Qualifiers: Encounter type: initial encounter Referrals: PCP,None [Ordering Only Provider] - Forms: ED Department Discharge Sepsis Event Note (ED) - Evaluation Sepsis Screening Result: No Definite Risk - Focused Exam Vital Signs: Vital Signs Temp Pulse Resp BP Pulse Ox 12/16/19 10:36 80 18 149/71 H 97 12/16/19 09:12 93 17 127/40 L 98 12/16/19 08:43 95.6 F L 113 H 17 194/70 H 97 - My Orders Last 24 Hours: My Active Orders 12/16/19 09:00 EKG Documentation Completion [RC] STAT Sodium Chloride 0.9% [Saline Flush] 10 ml FLUSH ASDIRECTED PRN Sodium Chloride 0.9% [Saline Flush] 2.5 ml FLUSH ASDIRECTED PRN Saline Lock Insert [OM.PC] Stat 12/16/19 12:19 Patient Status [ADT] Routine - Assessment/Plan Last 24 Hours: My Active Orders 12/16/19 09:00 EKG Documentation Completion [RC] STAT Sodium Chloride 0.9% [Saline Flush] 10 ml FLUSH ASDIRECTED PRN Sodium Chloride 0.9% [Saline Flush] 2.5 ml FLUSH ASDIRECTED PRN Saline Lock Insert [OM.PC] Stat 12/16/19 12:19 Patient Status [ADT] Routine
[2019-12-16] MEDS ORDERED: Potassium Chloride 20 MEQ Tab.ER PO ONE (10:01)
--- NOTE | 2019-12-16 10:51 | CT ---
CT chest Technique: Multiple axial sections through the chest were obtained. Intravenous contrast was utilized. Study has been performed as a pulmonary antegrade protocol. Findings: Pulmonary arteries are well-opacified. No filling defects are seen to indicate pulmonary embolism. Slightly prominent lymph nodes are seen within the mediastinum and within both hilar regions. No pericardial thickening is seen. Pacer wires are present. Lungs are clear with no acute parenchymal change. Low-density nodule is noted within the left lobe of the thyroid gland measuring 2.1 cm. Aorta shows no aneurysm. Bone window settings were reviewed. No acute osseous finding is seen. Impression: 1. No findings of pulmonary embolism. 2. 2.1 cm nodule within the left lobe of the thyroid gland. Nonemergent thyroid ultrasound is recommended. 3. Mildly prominent mediastinal and hilar lymph nodes. Uncertain if if these are chronic without old chest CT. Recommend follow-up chest CT in 6 months to hopefully confirm stability. Follow-up study would occur in June,. Follow-up study should include contrast. 4. Nothing acute is otherwise seen. Diagnostic code #9 This report was dictated in MDT
[2019-12-16] MEDS ORDERED: Sodium Chloride 0.9% with KCl 1,000 ML IV ONE (13:18)
[2019-12-16] MEDS ORDERED: Acetaminophen 325 MG Tab PO PRN (13:20)
[2019-12-16] MEDS ORDERED: Ondansetron 4 MG/2 ML SDV IVPUSH PRN (13:20)
[2019-12-16] MEDS ORDERED: Docusate Sodium 100 MG Cap PO PRN (13:20)
[2019-12-16] MEDS ORDERED: Magnesium Sulfate/Water 2 GM in Premix Bag 1 BAG IV ONE (13:22)
[2019-12-16 13:54] LABS: HEMOGLOBIN A1C 5.3 % (4.5-6.2)
--- NOTE | 2019-12-16 14:59 | PCM.HP.2 ---
H&P History of Present Illness - General Date of Service: 12/16/19 Admit Problem/Dx: Admission Diagnosis/Problem Admission Diagnosis/Problem Palpitations Source of Information: Patient, Old Records History Limitations: Reports: No Limitations - History of Present Illness Initial Comments - Free Text/Narative: This 64 year old female with pmh of non ischemic cardiomyopathy, HTN, dual chamber pacemaker, and obesity presented to the ED today with episodes of syncope. She reports over the last 3 weeks she has syncopal episodes off and on , not everyday, but feels dizzy and lightheaded everyday. She reports the first event that happened, she was thirsty and got out of bed quickly. When she was walking from her bed to the doorway, she became diaphoretic, clammy, and knew she was going to pass out. She fell backwards onto a stack of pillows and woke up sometime after, length of time unknown. She has continued to have these feeling intermittently, but decided today she wasn't getting better so she should be evaluated. She denies chest pain. Reports mild palpitations every once and a while. No dyspnea or cough. No fevers or chills. No abdominal pain or dysuria. She reports intermittent diarrhea, but doesn't feel this has been significant. She reports she has been dieting and has lost approximately 50 pounds since . She spoke with Dr bundy, PCP, 2 months about cutting back medications. She then cut down and stopped Amlodipine, but then started having palpitations and restarted it a week ago. She denies alcohol use, no tobacco use, but does smoking medical marijuana for insomnia. In the ED no leukocytosis noted, hgb 16.6, K 2.9, BUN 18, Cr 1.3, glucose 151. Troponin negative. TSH 4.36 T4 1.41, CXR negative. CTA chest revealed thyroid nodule in L lobe, recommend outpatient US. Otherwise no other findings. She was treated with KCl 40 meq. EKG SR, paced. BP and HR elevated on arrival and normalized. Orthostatic VS obtained in ED revealed orthostatic hypotension. She will be admitted observation for syncope and tachycardia. Dr Dc consulted in ED for pacemaker interrogation. No concerns. PCP, Dr Bundy - Related Data Allergies/Adverse Reactions: Allergies Allergy/AdvReac Type Severity Reaction Status Date / Time ceftriaxone sodium Allergy Airway Verified 12/16/19 13:40 [From Rocephin] Tightness erythromycin lactobionate Allergy Airway Verified 12/16/19 13:40 [From Erythrocin] Tightness buspirone HCl [From BuSpar] AdvReac Other Verified 12/16/19 13:40 Home Medications: Home Meds amLODIPine Besylate [Amlodipine Besylate] 10 mg PO DAILY 11/10/14 [History] Desvenlafaxine Succinate [Pristiq] 100 mg PO DAILY 05/30/17 [History] Pantoprazole Sodium 40 mg PO ACBREAKFAST 05/31/17 [History] Butalb/Acetaminophen/Caffeine [Twnhda-Kk[place]aby-Pnch 50-300-40] 1 - 2 cap PO Q4H PRN 11/22/17 [History] Lisinopril 40 mg PO DAILY 11/22/17 [History] Metoprolol Succinate 200 mg PO DAILY 11/22/17 [History] ALPRAZolam [Alprazolam Xr] 1 mg PO BEDTIME 12/16/19 [History] Baclofen 1 tab PO DAILY 12/16/19 [History] Spironolactone [Aldactone] 25 mg PO DAILY 12/16/19 [History] atorvaSTATin [Lipitor] 20 mg PO DAILY 12/16/19 [History] Past Medical History HEENT History: Reports: None Other HEENT History: Iritis Cardiovascular History: Reports: Arrhythmia, Cardiomyopathy, Heart Failure, Hypertension, Pacemaker Respiratory History: Reports: None. Denies: COPD Gastrointestinal History: Reports: None. Denies: GERD, GI Bleed Genitourinary History: Reports: None QUALITY REVIEWER History: Reports: Other (See Below) Other OB/BYN History: 5 endometriosis surgeries, breast reduction Musculoskeletal History: Reports: None Neurological History: Reports: None. Denies: CVA, TIA Psychiatric History: Reports: Anxiety, Depression Endocrine/Metabolic History: Reports: Obesity/BMI 30+ Hematologic History: Reports: None Immunologic History: Reports: None Oncologic (Cancer) History: Reports: None Other Oncologic History: skin cancer Dermatologic History: Reports: None Other Dermatologic History: Skin CA, squamous cell - Infectious Disease History Infectious Disease History: Reports: Chicken Pox, Measles, Mumps - Past Surgical History Head Surgeries/Procedures: Reports: None HEENT Surgical History: Reports: None Cardiovascular Surgical History: Reports: None, Pacer Respiratory Surgical History: Reports: None GI Surgical History: Reports: None Female Surgical History: Reports: Breast Biopsy, Breast Reduction Endocrine Surgical History: Reports: None Neurological Surgical History: Reports: None Musculoskeletal Surgical History: Reports: None Oncologic Surgical History: Reports: None Dermatological Surgical History: Reports: None Social & Family History - Family History Family Medical History: Noncontributory Oncologic: Reports: Pancreatic - Tobacco Use Smoking Status *Q: Never Smoker Second Hand Smoke Exposure: No - Caffeine Use Caffeine Use: Reports: None - Alcohol Use Alcohol Use History: No - Recreational Drug Use Recreational Drug Use: Yes Drug Use in Last 12 Months: Yes Recreational Drug Type: Reports: Marijuana/Hashish (medical card) Recreational Drug Use Frequency: Daily - Living Situation & Occupation Living situation: Reports: H&P Review of Systems - Review of Systems: Review Of Systems: See Below General: Reports: Weakness, Fatigue. Denies: Fever, Chills, Malaise HEENT: Reports: No Symptoms, Vertigo. Denies: Headaches, Sinus Congestion, Sore Throat Pulmonary: Denies: Shortness of Breath Cardiovascular: Reports: Lightheadedness, Syncope. Denies: Chest Pain Gastrointestinal: Reports: No Symptoms. Denies: Abdominal Pain, Black Stool, Bloody Stool, Diarrhea, Nausea, Vomiting Genitourinary: Reports: No Symptoms. Denies: Dysuria, Frequency, Burning Skin: Reports: No Symptoms Psychiatric: Reports: No Symptoms Neurological: Reports: No Symptoms Hematologic/Lymphatic: Reports: No Symptoms Immunologic: Reports: No Symptoms Exam - Exam Exam: See Below - Vital Signs Vital Signs: Last Vital Signs Temp 97.2 F 12/16/19 13:40 Pulse 99 12/16/19 13:40 Resp 14 12/16/19 13:40 BP 142/81 H 12/16/19 13:40 Pulse Ox 96 12/16/19 13:40 Orthostatic Blood Pressure [ 107/71 Standing] Orthostatic Blood Pressure [ 126/86 Sitting] Orthostatic Blood Pressure [ 135/75 Supine] Weight: 81.828 kg - Exam General: Alert, Oriented, Cooperative HEENT: Conjunctiva Clear, Posterior Pharynx Clear Neck: Trachea Midline, Full Range of Motion. No: JVD Lungs: Clear to Auscultation, Normal Respiratory Effort Cardiovascular: Regular Rate, Regular Rhythm, Normal S1, Normal S2. No: Systolic Murmur GI/Abdominal Exam: Normal Bowel Sounds, Soft, Non-Tender, No Organomegaly Extremities: Normal Inspection, Normal Range of Motion, Non-Tender, No Pedal Edema Neuro Extensive - Mental Status: Alert, Oriented x3 Neuro Extensive - Motor, Sensory, Reflexes: CN II-XII Intact Psychiatric: Alert, Normal Affect, Normal Mood - Patient Data Lab Results Last 24 hrs: Laboratory Results - last 24 hr 12/16/19 12/16/19 12/16/19 Range/Units 08:45 08:45 08:45 WBC 10.91 (4.0-11.0) K/uL RBC 5.07 (4.30-5.90) M/uL Hgb 16.6 H (12.0-16.0) g/dL Hct 47.6 H (36.0-46.0) % MCV 93.9 (80.0-98.0) fL MCH 32.7 H (27.0-32.0) pg MCHC 34.9 (31.0-37.0) g/dL RDW Std Deviation 43.1 (28.0-62.0) fl RDW Coeff of Carlos 13 (11.0-15.0) % Plt Count 349 (150-400) K/uL MPV 10.10 (7.40-12.00) fL Neut % (Auto) 42.6 L (48.0-80.0) % Lymph % (Auto) 46.4 H (16.0-40.0) % [place] % (Auto) 9.3 (0.0-15.0) % Eos % (Auto) 1.4 (0.0-7.0) % Baso % (Auto) 0.3 (0.0-1.5) % Neut # (Auto) 4.7 (1.4-5.7) K/uL Lymph # (Auto) 5.1 H (0.6-2.4) K/uL [place] # (Auto) 1.0 H (0.0-0.8) K/uL Eos # (Auto) 0.2 (0.0-0.7) K/uL Baso # (Auto) 0.0 (0.0-0.1) K/uL Nucleated RBC % 0.0 /100WBC Nucleated RBCs # 0 K/uL Sodium 142 (136-145) mmol/L Potassium 2.9 L (3.5-5.1) mmol/L Chloride 101 (98-107) mmol/L Carbon Dioxide 22.2 (21.0-32.0) mmol/L BUN 18 (7.0-18.0) mg/dL Creatinine 1.3 H (0.6-1.0) mg/dL Est Cr Clr Drug Dosing 37.12 mL/min Estimated GFR (MDRD) 41.5 ml/min Glucose 151 H (74-106) mg/dL Hemoglobin A1c (4.5-6.2) % Calcium 10.1 (8.5-10.1) mg/dL Magnesium (1.8-2.4) mg/dL Total Bilirubin 0.5 (0.2-1.0) mg/dL AST 37 (15-37) IU/L ALT 46 (14-63) IU/L Alkaline Phosphatase 84 (46-116) U/L Troponin I < 0.050 (0.000-0.056) ng/mL Total Protein 8.3 H (6.4-8.2) g/dL Albumin 4.7 (3.4-5.0) g/dL Globulin 3.6 (2.6-4.0) g/dL Albumin/Globulin Ratio 1.3 (0.9-1.6) Free T4 1.41 (0.76-1.46) ng/dL TSH 3rd Generation 4.39 H (0.36-3.74) uIU/mL 12/16/19 12/16/19 Range/Units 08:45 08:51 WBC (4.0-11.0) K/uL RBC (4.30-5.90) M/uL Hgb (12.0-16.0) g/dL Hct (36.0-46.0) % MCV (80.0-98.0) fL MCH (27.0-32.0) pg MCHC (31.0-37.0) g/dL RDW Std Deviation (28.0-62.0) fl RDW Coeff of Carlos (11.0-15.0) % Plt Count (150-400) K/uL MPV (7.40-12.00) fL Neut % (Auto) (48.0-80.0) % Lymph % (Auto) (16.0-40.0) % [place] % (Auto) (0.0-15.0) % Eos % (Auto) (0.0-7.0) % Baso % (Auto) (0.0-1.5) % Neut # (Auto) (1.4-5.7) K/uL Lymph # (Auto) (0.6-2.4) K/uL [place] # (Auto) (0.0-0.8) K/uL Eos # (Auto) (0.0-0.7) K/uL Baso # (Auto) (0.0-0.1) K/uL Nucleated RBC % /100WBC Nucleated RBCs # K/uL Sodium (136-145) mmol/L Potassium (3.5-5.1) mmol/L Chloride (98-107) mmol/L Carbon Dioxide (21.0-32.0) mmol/L BUN (7.0-18.0) mg/dL Creatinine (0.6-1.0) mg/dL Est Cr Clr Drug Dosing mL/min Estimated GFR (MDRD) ml/min Glucose (74-106) mg/dL Hemoglobin A1c 5.3 (4.5-6.2) % Calcium (8.5-10.1) mg/dL Magnesium 1.7 L (1.8-2.4) mg/dL Total Bilirubin (0.2-1.0) mg/dL AST (15-37) IU/L ALT (14-63) IU/L Alkaline Phosphatase (46-116) U/L Troponin I (0.000-0.056) ng/mL Total Protein (6.4-8.2) g/dL Albumin (3.4-5.0) g/dL Globulin (2.6-4.0) g/dL Albumin/Globulin Ratio (0.9-1.6) Free T4 (0.76-1.46) ng/dL TSH 3rd Generation (0.36-3.74) uIU/mL Result Diagrams: 12/16/19 08:45 12/16/19 08:45 Sepsis Event Note - Evaluation Sepsis Screening Result: No Definite Risk - Focused Exam Vital Signs: Vital Signs Temp Pulse Resp BP Pulse Ox 12/16/19 13:40 97.2 F 99 14 142/81 H 96 12/16/19 10:36 80 18 149/71 H 97 12/16/19 09:12 93 17 127/40 L 98 12/16/19 08:43 95.6 F L 113 H 17 194/70 H 97 Date Exam was Performed: 12/16/19 Time Exam was Performed: 14:45 - Problem List (1) Syncopal episodes SNOMED Code(s): 054069540 ICD Code: R55 - SYNCOPE AND COLLAPSE Status: Acute Current Visit: Yes Qualifiers: Encounter type: initial encounter (2) Palpitations SNOMED Code(s): 79196505 ICD Code: R00.2 - PALPITATIONS Status: Acute Current Visit: Yes (3) Dehydration SNOMED Code(s): 20561447 ICD Code: E86.0 - DEHYDRATION Status: Acute Current Visit: Yes (4) Cardiomyopathy SNOMED Code(s): 06099614 ICD Code: I42.9 - CARDIOMYOPATHY, UNSPECIFIED Status: Chronic Current Visit: Yes Qualifiers: Cardiomyopathy type: unspecified Qualified Code(s): I42.9 - Cardiomyopathy , unspecified (5) HTN (hypertension) SNOMED Code(s): 63247307 ICD Code: I10 - ESSENTIAL (PRIMARY) HYPERTENSION Status: Chronic Current Visit: Yes Qualifiers: Hypertension type: essential hypertension Qualified Code(s): I10 - Essential (primary) hypertension (6) Dyslipidemia SNOMED Code(s): 158387506 ICD Code: E78.5 - HYPERLIPIDEMIA, UNSPECIFIED Status: Acute Current Visit : Yes (7) Obesity (BMI 35.0-39.9 without comorbidity) SNOMED Code(s): 674876957, 746180036 ICD Code: E66.9 - OBESITY, UNSPECIFIED Status: Acute Current Visit: No (8) Pacemaker SNOMED Code(s): 231186373 ICD Code: Z95.0 - PRESENCE OF CARDIAC PACEMAKER Status: Chronic Current Visit: Yes Problem List Initiated/Reviewed/Updated: Yes Orders Last 24hrs: Active Orders 24 hr Category Date Time Status Patient Status [ADT] Routine ADT 12/16/19 12:19 Active Intake and Output [RC] Q12H Care 12/16/19 13:20 Active Orthostatic Vital Signs [RC] Q12H Care 12/16/19 20:00 Active Oxygen Therapy [RC] PRN Care 12/16/19 13:20 Active Telemetry Monitoring [Cardiac Monitoring] [RC] Q8H Care 12/16/19 12:24 Active Up With Assistance [RC] ASDIRECTED Care 12/16/19 13:20 Active VTE/DVT Education [RC] PER UNIT ROUTINE Care 12/16/19 13:20 Active Vital Signs [RC] Q4H Care 12/16/19 13:20 Active Heart Healthy Diet [DIET] Diet 12/16/19 Lunch Active Echo Comp wo Cont [US] Urgent Exams 12/16/19 14:33 Ordered BASIC METABOLIC PANEL,BMP [CHEM] AM Lab 12/17/19 05:11 Ordered CBC WITH AUTO DIFF [HEME] AM Lab 12/17/19 05:11 Ordered MAGNESIUM [CHEM] AM Lab 12/17/19 05:11 Ordered Acetaminophen [Tylenol] Med 12/16/19 13:20 Active 650 mg PO Q4H PRN Docusate Sodium [Colace] Med 12/16/19 13:20 Active 100 mg PO BID PRN Lactated Ringers [Ringers, Lactated] 1,000 ml Med 12/16/19 21:00 Ordered IV Q13H Ondansetron [Zofran] Med 12/16/19 13:20 Active 4 mg IVPUSH Q4H PRN Sodium Chloride 0.9% [Saline Flush] Med 12/16/19 09:00 Active 2.5 ml FLUSH ASDIRECTED PRN Sodium Chloride 0.9% with KCl [Normal Saline with 40 Med 12/16/19 13:18 Active mEq KCl] 1,000 ml IV ONETIME Saline Lock Insert [OM.PC] Stat Oth 12/16/19 09:00 Ordered Resuscitation Status Routine Resus Stat 12/16/19 13:20 Ordered Medication Orders Acetaminophen (Tylenol) 650 mg PO Q4H PRN PRN Reason: Pain (Mild 1-3)/fever Docusate Sodium (Colace) 100 mg PO BID PRN PRN Reason: Constipation Potassium Chloride/Sodium Chloride (Normal Saline With 40 Meq Kcl) 1,000 mls @ 125 mls/hr IV ONETIME ONE Stop: 12/16/19 21:17 Last Admin: 12/16/19 13:41 Dose: 125 mls/hr Lactated Ringer's (Ringers, Lactated) 1,000 mls @ 75 mls/hr IV Q13H LEI Ondansetron HCl (Zofran) 4 mg IVPUSH Q4H PRN PRN Reason: Nausea Sodium Chloride (Saline Flush) 2.5 ml FLUSH ASDIRECTED PRN PRN Reason: Keep Vein Open Last Admin: 12/16/19 10:35 Dose: 2.5 ml Assessment/Plan Comment:: This 64 year old female admitted with syncope and palpitations 1. Syncope/palpitations: - Likely orthostatic related - Give 1 L NS with 40 kcl now, then LR 75 overnight. - Monitor Orthostatic VS ever 12 hours for improvement - Recheck ECHO - Pacemaker interrogated per Dr Dc. Agrees with above. Feels more related to orthostasis. Consider possible compression stockings as well. 2. Cardiomyopathy: - Continue current medications, including MELVIN/BB/Spironolactone. - Daily weight - Strict I/O - Heart healthy diet 3. Thyroid nodule - Noted on CT, TSH elevated T4 normal. - Thyroid US - Follow up with PCP for further evaluation VTE prophylaxis: Heparin Dispo: 1-2 days pending improvement - Mortality Measure Prognosis:: Good
[2019-12-16] MEDS ORDERED: Melatonin 3 MG Tab PO PRN (16:17)
[2019-12-16] MEDS: Heparin Sodium 5,000 Units/ML Vial SUBCUT SCH (16:49)
[2019-12-16] MEDS ORDERED: Iopamidol 755 MG/ML 500 ML Multipack Bottle IVPUSH STA (17:20)
[2019-12-16] MEDS ORDERED: atorvaSTATin 20 MG Tab PO SCH (21:00)
[2019-12-16] MEDS ORDERED: Lactated Ringers 1,000 ML IV SCH ×2 (21:00)
[2019-12-16] MEDS ORDERED: Alprazolam [Alprazolam Xr] 1 MG PO SCH (21:00)
[2019-12-16 21:08] LABS: BLOOD UREA NITROGEN,BUN 20 mg/dL (7.0-18.0); CHLORIDE,CL 107 mmol/L (98-107); GLUCOSE RANDOM 87 mg/dL (74-106); POTASSIUM,K 4.7 mmol/L (3.5-5.1); SODIUM,NA 143 mmol/L (136-145)
[2019-12-16] MEDS ORDERED: ALPRAZolam 0.5 MG Tab PO SCH (23:15)
[2019-12-17] MEDS: Heparin Sodium 5,000 Units/ML Vial SUBCUT SCH (04:21)
[2019-12-17 06:24] LABS: BLOOD UREA NITROGEN,BUN 19 mg/dL (7.0-18.0); CHLORIDE,CL 107 mmol/L (98-107); GLUCOSE RANDOM 80 mg/dL (74-106); POTASSIUM,K 4.6 mmol/L (3.5-5.1); SODIUM,NA 143 mmol/L (136-145)
[2019-12-17] MEDS ORDERED: Pantoprazole 40 MG Tab.CR PO SCH (07:30)
[2019-12-17] MEDS ORDERED: amLODIPine 10 MG Tab PO SCH (09:00)
[2019-12-17] MEDS ORDERED: METOPROLOL SUCCINATE 200 MG PO SCH (09:00)
[2019-12-17] MEDS ORDERED: BACLOFEN PO SCH (09:00)
[2019-12-17] MEDS ORDERED: Desvenlafaxine Succinate [Pristiq] 100 MG PO SCH (09:00)
[2019-12-17] MEDS ORDERED: Spironolactone 25 MG Tab PO SCH (09:00)
[2019-12-17 12:04] VITALS: BP 134/88; PULSE 71
--- NOTE | 2019-12-17 14:49 | PCM.PRNOTE ---
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 Plan f/u device clinic.
--- NOTE | 2019-12-17 16:11 | PCM.DCSUM1 ---
Discharge Summary - Hospital Course Brief History: This 64 year old female with pmh of non ischemic cardiomyopathy, HTN, dual chamber pacemaker, and obesity presented to the ED today with episodes of syncope. She reports over the last 3 weeks she has syncopal episodes off and on, not everyday, but feels dizzy and lightheaded everyday. She reports the first event that happened, she was thirsty and got out of bed quickly. When she was walking from her bed to the doorway, she became diaphoretic, clammy, and knew she was going to pass out. She fell backwards onto a stack of pillows and woke up sometime after, length of time unknown. She has continued to have these feeling intermittently, but decided today she wasn't getting better so she should be evaluated. She denies chest pain. Reports mild palpitations every once and a while. No dyspnea or cough. No fevers or chills. No abdominal pain or dysuria. She reports intermittent diarrhea, but doesn't feel this has been significant. She reports she has been dieting and has lost approximately 50 pounds since . She spoke with Dr bundy, PCP, 2 months about cutting back medications. She then cut down and stopped Amlodipine, but then started having palpitations and restarted it a week ago. She denies alcohol use, no tobacco use, but does smoking medical marijuana for insomnia. In the ED no leukocytosis noted, hgb 16.6, K 2.9, BUN 18, Cr 1.3, glucose 151. Troponin negative. TSH 4.36 T4 1.41, CXR negative. CTA chest revealed thyroid nodule in L lobe, recommend outpatient US. Otherwise no other findings. She was treated with KCl 40 meq. EKG SR, paced. BP and HR elevated on arrival and normalized. Orthostatic VS obtained in ED revealed orthostatic hypotension. She will be admitted observation for syncope and tachycardia. Dr Dc consulted in ED for pacemaker interrogation. No concerns. PCP, Dr Bundy - Discharge Data Discharge Date: 12/17/19 Discharge Disposition: Home, Self-Care 01 Condition: Good - Referral to Home Health Primary Care Physician: Sri Bundy, DO - Discharge Diagnosis/Problem(s) (1) Syncopal episodes SNOMED Code(s): 492478568 ICD Code: R55 - SYNCOPE AND COLLAPSE Status: Acute Qualifiers: Encounter type: initial encounter (2) Palpitations SNOMED Code(s): 74756500 ICD Code: R00.2 - PALPITATIONS Status: Acute (3) Dehydration SNOMED Code(s): 72358021 ICD Code: E86.0 - DEHYDRATION Status: Acute (4) Cardiomyopathy SNOMED Code(s): 91424637 ICD Code: I42.9 - CARDIOMYOPATHY, UNSPECIFIED Status: Chronic Qualifiers: Cardiomyopathy type: unspecified Qualified Code(s): I42.9 - Cardiomyopathy, unspecified (5) HTN (hypertension) SNOMED Code(s): 87819140 ICD Code: I10 - ESSENTIAL (PRIMARY) HYPERTENSION Status: Chronic Qualifiers: Hypertension type: essential hypertension Qualified Code(s): I10 - Essential (primary) hypertension (6) Dyslipidemia SNOMED Code(s): 645885749 ICD Code: E78.5 - HYPERLIPIDEMIA, UNSPECIFIED Status: Acute (7) Obesity (BMI 35.0-39.9 without comorbidity) SNOMED Code(s): 788647486, 187140205 ICD Code: E66.9 - OBESITY, UNSPECIFIED Status: Acute (8) Pacemaker SNOMED Code(s): 172342558 ICD Code: Z95.0 - PRESENCE OF CARDIAC PACEMAKER Status: Chronic - Patient Summary/Data Hospital Course: Admitting Diagnoses Syncope Orthostatic hypotension Discharge Diagnoses: Syncope Orthostatic hypotension Other pmh: Cardiomyopathy Dual chamber Pacemaker HTN Keven was admitted for syncope and noted to have orthostatic hypotension. Labwork revelaed dehydration. She was treated with IVFs and supplemented with Potassium and magnesium as well. This morning she is feeling much better, Orthostatic VS now stable. Dr Dc interrogated pacemaker, no concerns. She was counseled on eating and drinking appropriately, she can continue dieting, but to be aware of hydration status more. She verbalized understaind. ECHO pending on discharge. Dr Dc did not recommend any medication dose changes at this time. She is to monitor BP at home and follow up with PCP and Dr Dc as outpatient. She did express wanting to stop medications "as they all do the same thing when I looked them up." I counseled her on the specific needs for each medication as they each do something important when it comes to heart failure and cardiomyopathy. That all the medications together are important. She verbalized understanding. She is to return to the ED or clinic if concerns should arise. - Patient Instructions Diet: Heart Healthy Diet, Drink 8-10+ Glasses/Day Activity: As Tolerated, No Strenuous Activities Showering/Bathing: May Shower Notify Provider of: Fever, Increased Pain, Swelling and Redness, Drainage, Nausea and/or Vomiting - Discharge Plan *PRESCRIPTION DRUG MONITORING PROGRAM REVIEWED*: Not Applicable *COPY OF PRESCRIPTION DRUG MONITORING REPORT IN PATIENT PITA: Not Applicable Home Medications: Home Meds amLODIPine Besylate [Amlodipine Besylate] 10 mg PO DAILY 11/10/14 [History] Desvenlafaxine Succinate [Pristiq] 100 mg PO DAILY 05/30/17 [History] Pantoprazole Sodium 40 mg PO ACBREAKFAST 05/31/17 [History] Butalb/Acetaminophen/Caffeine [Bkieth-Jiywyvpd-Ovld 50-300-40] 1 - 2 cap PO Q4H PRN 11/22/17 [History] Lisinopril 40 mg PO DAILY 11/22/17 [History] Metoprolol Succinate 200 mg PO DAILY 11/22/17 [History] ALPRAZolam [Alprazolam Xr] 1 mg PO BEDTIME 12/16/19 [History] Spironolactone [Aldactone] 25 mg PO DAILY 12/16/19 [History] atorvaSTATin [Lipitor] 20 mg PO DAILY 12/16/19 [History] Oxygen Therapy Mode: Room Air Patient Handouts: Dehydration, Adult, Mvzu-[id number], Syncope, [id number]-[id number] Referrals: [facility] [Outside] Eren Dc MD [Physician] - 01/29/20 9:00 am (Arrive 15 minutes early with a photo ID, insurance card, and a mask if you have one. ) Sri Bundy DO [Primary Care Provider] - 12/27/19 8:00 am (Arrive 15 minutes with photo ID, insurnace card, discharge information, and a mask if you have one. ) - Discharge Summary/Plan Comment DC Time >30 min.: No - Patient Data Vitals - Most Recent: Last Vital Signs Temp 97.3 F 12/17/19 12:00 Pulse 71 12/17/19 12:00 Resp 18 06/16/20 12:00 BP 134/88 12/17/19 12:00 Pulse Ox 97 12/17/19 12:00 Orthostatic Blood Pressure [ 129/67 Standing] Orthostatic Blood Pressure [ 150/63 Sitting] Orthostatic Blood Pressure [ 139/67 Supine] Weight - Most Recent: 81.828 kg I&O - Last 24 hours: Intake & Output 12/17/19 12/17/19 12/17/19 06:59 14:59 22:59 Intake Total 1745 Output Total 580 Balance 1165 Lab Results - Last 24 hrs: Laboratory Results - last 24 hr 12/16/19 12/17/19 12/17/19 Range/Units 20:46 05:50 05:50 WBC 4.66 (4.0-11.0) K/uL RBC 3.99 L (4.30-5.90) M/uL Hgb 12.9 (12.0-16.0) g/dL Hct 37.9 (36.0-46.0) % MCV 95.0 (80.0-98.0) fL MCH 32.3 H (27.0-32.0) pg MCHC 34.0 (31.0-37.0) g/dL RDW Std Deviation 43.8 (28.0-62.0) fl RDW Coeff of Carlos 13 (11.0-15.0) % Plt Count 223 (150-400) K/uL MPV 9.60 (7.40-12.00) fL Neut % (Auto) 38.3 L (48.0-80.0) % Lymph % (Auto) 46.8 H (16.0-40.0) % Bracken % (Auto) 10.9 (0.0-15.0) % Eos % (Auto) 3.4 (0.0-7.0) % Baso % (Auto) 0.6 (0.0-1.5) % Neut # (Auto) 1.8 (1.4-5.7) K/uL Lymph # (Auto) 2.2 (0.6-2.4) K/uL Bracken # (Auto) 0.5 (0.0-0.8) K/uL Eos # (Auto) 0.2 (0.0-0.7) K/uL Baso # (Auto) 0.0 (0.0-0.1) K/uL Nucleated RBC % 0.0 /100WBC Nucleated RBCs # 0 K/uL Sodium 143 143 (136-145) mmol/L Potassium 4.7 4.6 (3.5-5.1) mmol/L Chloride 107 107 (98-107) mmol/L Carbon Dioxide 24.0 28.0 (21.0-32.0) mmol/L BUN 20 H 19 H (7.0-18.0) mg/dL Creatinine 0.8 0.7 (0.6-1.0) mg/dL Est Cr Clr Drug Dosing 60.31 68.93 mL/min Estimated GFR (MDRD) > 60.0 > 60.0 ml/min Glucose 87 80 (74-106) mg/dL Calcium 9.0 8.9 (8.5-10.1) mg/dL Magnesium 1.8 (1.8-2.4) mg/dL Med Orders - Current: Current Medications Discontinued Medications Acetaminophen (Tylenol) 650 mg PO Q4H PRN PRN Reason: Pain (Mild 1-3)/fever Last Admin: 12/16/19 16:49 Dose: 650 mg Alprazolam (Xanax) 1 mg PO BEDTIME [facility] Last Admin: 12/16/19 23:15 Dose: 1 mg Docusate Sodium (Colace) 100 mg PO BID PRN PRN Reason: Constipation Heparin Sodium (Porcine) (Heparin Sodium) 5,000 units SUBCUT Q12H [facility] Last Admin: 12/17/19 04:21 Dose: 5,000 units Potassium Chloride/Sodium Chloride (Normal Saline With 40 Meq Kcl) 1,000 mls @ 125 mls/hr IV ONETIME ONE Stop: 12/16/19 21:17 Last Admin: 12/16/19 13:41 Dose: 125 mls/hr Magnesium Sulfate 2 gm/ Premix 50 mls @ 50 mls/hr IV ONETIME ONE Stop: 12/16/19 14:21 Last Admin: 12/16/19 13:52 Dose: 50 mls/hr Lactated Ringer's (Ringers, Lactated) 1,000 mls @ 125 mls/hr IV Q8H [facility] Lactated Ringer's (Ringers, Lactated) 1,000 mls @ 75 mls/hr IV Q13H [facility] Last Admin: 12/16/19 22:35 Dose: 75 mls/hr Iopamidol (Isovue Multipack-370 (76%)) 50 ml IVPUSH ONETIME STA Stop: 12/16/19 17:21 Last Admin: 12/16/19 17:21 Dose: 50 ml Melatonin (Melatonin) 6 mg PO BEDTIME PRN PRN Reason: Sleep Last Admin: 12/16/19 23:16 Dose: 6 mg Ondansetron HCl (Zofran) 4 mg IVPUSH Q4H PRN PRN Reason: Nausea Alprazolam [ (Alprazolam Xr] 1 Mg) 1 each PO BEDTIME [facility] Last Admin: 12/16/19 23:39 Dose: Not Given Atorvastatin 20 Mg (Tab) 1 each PO BEDTIME [facility] Last Admin: 12/16/19 21:53 Dose: Not Given Desvenlafaxine Succinate [Pristiq] 100 Mg 1 each PO DAILY [facility] Last Admin: 12/17/19 09:14 Dose: 1 each Pantoprazole 40 Mg (Tab.Cr) 1 each PO ACBREAKFAST [facility] Last Admin: 12/17/19 06:59 Dose: 1 each Amlodipine 10 Mg Tab 1 each PO DAILY [facility] Last Admin: 12/17/19 09:14 Dose: 1 each Lisinopril 40 Mg Tab 1 each PO DAILY [facility] Last Admin: 12/17/19 09:14 Dose: 1 each Spironolactone 25 Mg (Tab) 1 each PO DAILY [facility] Last Admin: 12/17/19 09:15 Dose: 1 each Metoprolol Succinate (200 Mg Tab.Er) 1 each PO DAILY [facility] Last Admin: 12/17/19 09:14 Dose: 1 each Potassium Chloride (Klor-Con M20) 40 meq PO ONETIME ONE Stop: 12/16/19 10:02 Last Admin: 12/16/19 10:35 Dose: 40 meq Sodium Chloride (Saline Flush) 10 ml FLUSH ASDIRECTED PRN PRN Reason: Keep Vein Open Last Admin: 12/16/19 10:35 Dose: 10 ml Sodium Chloride (Saline Flush) 2.5 ml FLUSH ASDIRECTED PRN PRN Reason: Keep Vein Open Last Admin: 12/16/19 10:35 Dose: 2.5 ml - Exam General: Reports: Alert, Oriented, Cooperative, No Acute Distress Lungs: Reports: Clear to Auscultation, Normal Respiratory Effort Cardiovascular: Reports: Regular Rate, Regular Rhythm, No Murmurs GI/Abdominal Exam: Normal Bowel Sounds, Soft, Non-Tender Extremities: Normal Inspection, Normal Range of Motion, Non-Tender Neurological: Reports: No New Focal Deficit Psy/Mental Status: Reports: Alert, Normal Affect, Normal Mood
[2019-12-17] MEDS ORDERED: ALPRAZolam 0.5 MG Tab PO SCH (21:00)
--- NOTE | 2019-12-18 07:46 | US ---
Thyroid ultrasound: Multiple real-time images of the thyroid gland were obtained. Comparison: Previous CT chest of 12/16/19. Findings: Right thyroid gland and isthmus appears within normal limits. Large cystic nodule is seen within the left lobe measuring about 2.5 cm which correlates to the CT finding. 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 Measurements: Right lobe: 4.3 x 0.7 x 1.0 cm Left lobe: 4.5 x 1.8 x 2.2 cm Isthmus thickness: 3 mm Impression: 1. Cystic lesion within the left lobe of the thyroid gland believed to be benign and correlates to the finding on CT study. 2. In absence of any clinical change, no further follow-up is needed. Diagnostic code #2 Study was dictated in MDT
== END 2019-12-17 13:50 | disposition home or self-care (01) ==
LOC: MW.ED 08:36 → MW.MS 12:19
PROVIDERS: ADMIT Internal Medicine; ATTEND Internal Medicine
DX: I95.1 Orthostatic hypotension (principal); E86.0 Dehydration; F41.9 Anxiety disorder, unspecified; F32.9 Major depressive disorder, single episode, unspecified; I11.0 Hypertensive heart disease with heart failure; I50.9 Heart failure, unspecified; E66.9 Obesity, unspecified; E78.5 Hyperlipidemia, unspecified; E04.1 Nontoxic single thyroid nodule; I42.8 Other cardiomyopathies; Z88.8 Allergy status to other drugs, medicaments and biological substances; Z88.1 Allergy status to other antibiotic agents; Z95.0 Presence of cardiac pacemaker; Z79.899 Other long term (current) drug therapy; Z68.30 Body mass index [BMI] 30.0-30.9, adult
CPT/HCPCS: 36415; 71046; 71275; 76536; 80048; 80053; 83036; 83735; 84439; 84443; 84484; 85025; 93005; 93306; 96365; 96366; 96372; 96375; 99285; A9270; G0378; J1644; J3475; J3480; J7120; Q9967

== ENCOUNTER 2020-09-30 22:34 | Emergency (ER) | payer OTHER ==
[2020-09-30] MEDS ORDERED: Sodium Chloride 0.9% 10 ML Syringe FLUSH PRN (22:50)
[2020-09-30] MEDS ORDERED: Sodium Chloride 0.9% 2.5 ML Syringe FLUSH PRN (22:50)
--- NOTE | 2020-09-30 23:11 | EDM.PDOC ---
ED HPI GENERAL MEDICAL PROBLEM - General Chief Complaint: Chest Pain Stated Complaint: CHEST PAIN Time Seen by Provider: 09/30/20 22:49 - History of Present Illness INITIAL COMMENTS - FREE TEXT/NARRATIVE: HISTORY AND PHYSICAL: History of present illness: This is a 64-year-old female with a history significant for hypertension, cardiomyopathy, intermittent episodes of atrial fibrillation, morbid obesity, endometriosis, who presents ER today secondary to bruising throughout her body after starting Eliquis yesterday. Patient reports that she does have a history of intermittent atrial fibrillation and was just recently started on a Eliquis to prevent clot. Patient reports that she started yesterday and then today noticed bruising throughout her body. Patient denies any recent fevers, but reports that she has had chills today after going for a walk. Patient denies any shortness of breath or abdominal pain. Patient ports that she felt tingly sensation all throughout her body including her arms back and chest bilaterally. Patient denies any diaphoresis. Patient denies any associated nausea. Patient reports she been tolerating p.o. solids and liquids well. Patient denies any abdominal discomfort. Patient denies any dysuria, frequency, urgency. Patient denies any bleeding from her rectum or in her mouth. Patient denies any headache, double vision, blurred vision. Review of systems: As per history of present illness and below otherwise all systems reviewed and negative. Past medical history: As per history of present illness and as reviewed below otherwise noncontributory. Surgical history: As per history of present illness and as reviewed below otherwise noncontributory. Social history: No reported history of drug or alcohol abuse. Family history: As per history of present illness and as reviewed below otherwise noncontributory. Physical exam: This patient was seen and evaluated during the 2019 SARS-CoV-2 novel coronavirus pandemic period. Community viral transmission is ongoing at time of this encounter and the emergency department is operating under pandemic response procedures. Constitutional: Patient is oriented to person, place, and time. Appears well- developed and well-nourished. No distress. HEENT: Moist mucous membranes Head: Normocephalic and atraumatic Eyes: Right eye exhibits no discharge. Left eye exhibits no discharge. No scleral icterus Neck: Normal range of motion. No tracheal deviation present. Cardiovascular: Normal rate and regular rhythm. Regular rate and rhythm Pulmonary: Effort normal, no respiratory distress. Abdominal: No distention Musculoskeletal: Normal range of motion Neurologic: Alert and oriented to person, place and time. Skin: [place], warm and dry. Psychiatric: Normal mood and affect. Behavior is normal. Judgment and thought content normal. Nursing note and vital signs have been reviewed Patient's ER physical exam is significant for audible small bruises throughout her lower extremities as well as upper extremities. Diagnostics: EKG: As interpreted by ER physician: Flor: Nonspecific ST-T wave abnormalities Normal axis No evidence of ST elevation MD Atrial sensed ventricular paced rhythm. Heart rate 63 Chest Xray: Normal cardiac silhouette No infiltrates or effusions identified. No PTX No evidence of acute bony fracture. As interpreted by ER MD: [employer]: Assessment and plan: This is a 64-year-old female who presents to the ER today secondary to concerns of reaction to Eliquis that she was a started on including bruising throughout her body and tingling sensation in arms or back and chest. Patient reports that she did have some slight discomfort in her chest when this occurred but is currently completely resolved. Patient denies any other associated cardiac symptoms. Patient reports that she ambulates and goes for walks daily and is otherwise healthy. Patient reports she has never had a myocardial infarction in the past. Patient reports that the pain that she is experiencing does not feel similar to what she would expect with heart attack. 1:08 AM: Patient's labs are all within normal limits. Patient's EKG and cardiac enzymes are normal. Etiology the patient's symptoms are unclear but could be related to her anticoagulant. Patient was initially recommended to continue her medicines until she speaks to her primary care physician however patient is planning on stopping her anticoagulant until she speaks to her doctor as she is concerned that it was causing her symptoms. Patient is otherwise clinically hemodynamically stable. Patient's enzymes are negative. Patient's presentation is low risk for cardiac etiology. Reassessment at the time of disposition demonstrates that the patient is in no acute distress. The patient has remained stable throughout the entire ED visit and is without objective evidence for acute process requiring urgent intervention or hospitalization. The patient is stable for discharge, counseling is provided as documented above, discussed symptomatic treatment and specific conditions for return. I have spoken with the patient/caregiver and discussed todays findings, in addition to providing specific details for the plan of care. Questions are answered and there is agreement with the plan. Definitive disposition and diagnosis as appropriate pending reevaluation and review of above. - Related Data Allergies Allergy/AdvReac Type Severity Reaction Status Date / Time ceftriaxone sodium Allergy Airway Verified 09/30/20 22:40 [From Rocephin] Tightness erythromycin lactobionate Allergy Airway Verified 09/30/20 22:40 [From Erythrocin] Tightness buspirone HCl [From BuSpar] AdvReac Other Verified 09/30/20 22:40 Home Meds: Home Meds amLODIPine Besylate [Amlodipine Besylate] 10 mg PO DAILY 11/10/14 [History] Desvenlafaxine Succinate [Pristiq] 100 mg PO DAILY 05/30/17 [History] Pantoprazole Sodium 40 mg PO ACBREAKFAST 05/31/17 [History] Butalb/Acetaminophen/Caffeine [Lkundp-Tulcfvnt-Xjnx 50-300-40] 1 - 2 cap PO Q4H PRN 11/22/17 [History] Lisinopril 40 mg PO DAILY 11/22/17 [History] Metoprolol Succinate 200 mg PO DAILY 11/22/17 [History] ALPRAZolam [Alprazolam Xr] 1 mg PO BEDTIME 12/16/19 [History] Spironolactone [Aldactone] 25 mg PO DAILY 12/16/19 [History] atorvaSTATin [Lipitor] 20 mg PO DAILY 12/16/19 [History] Past Medical History HEENT History: Reports: Other (See Below) Other HEENT History: Iritis Cardiovascular History: Reports: Arrhythmia, Cardiomyopathy, Heart Failure, Hypertension, Pacemaker Respiratory History: Reports: None Gastrointestinal History: Reports: None Genitourinary History: Reports: None CHILD CARE DIRECTOR History: Reports: Other (See Below) Other CHILD CARE DIRECTOR History: 5 endometriosis surgeries, breast reduction Musculoskeletal History: Reports: None Neurological History: Reports: None Psychiatric History: Reports: Anxiety, Depression Endocrine/Metabolic History: Reports: Obesity/BMI 30+ Hematologic History: Reports: None Immunologic History: Reports: None Oncologic (Cancer) History: Reports: None Other Oncologic History: skin cancer Dermatologic History: Reports: None Other Dermatologic History: Skin CA, squamous cell - Infectious Disease History Infectious Disease History: Reports: Chicken Pox, Measles, Mumps - Past Surgical History Head Surgeries/Procedures: Reports: None HEENT Surgical History: Reports: None Cardiovascular Surgical History: Reports: None, Pacer Respiratory Surgical History: Reports: None GI Surgical History: Reports: None Female Surgical History: Reports: Breast Biopsy, Breast Reduction Endocrine Surgical History: Reports: None Neurological Surgical History: Reports: None Musculoskeletal Surgical History: Reports: None Other Musculoskeletal Surgeries/Procedures:: injection Oncologic Surgical History: Reports: None Dermatological Surgical History: Reports: None Social & Family History - Family History Family Medical History: No Pertinent Family History Oncologic: Reports: Pancreatic - Caffeine Use Caffeine Use: Reports: None - Recreational Drug Use Recreational Drug Use: Yes Drug Use in Last 12 Months: Yes Recreational Drug Type: Reports: Other (see below) Other Recreational Drug Type: Medical Marijuana - Living Situation & Occupation Living situation: Reports: ED ROS GENERAL - Review of Systems Review Of Systems: See Below ED EXAM, GENERAL - Physical Exam Exam: See Below Course - Vital Signs Last Recorded V/S: Last Vital Signs Temp 97.6 F 09/30/20 22:35 Pulse 63 10/01/20 00:00 Resp 16 10/01/20 00:00 BP 152/77 H 10/01/20 00:00 Pulse Ox 97 10/01/20 00:00 - Orders/Labs/Meds Orders: Active Orders 24 hr Category Date Time Status Cardiac Monitoring [RC] . DIRECTED Care 09/30/20 22:50 Active EKG Documentation Completion [RC] AM Care 09/30/20 22:50 Active Pulse Oximetry [RC] ASDIRECTED Care 09/30/20 22:50 Active TROPONIN I [CHEM] Stat Lab 10/01/20 01:02 Received Sodium Chloride 0.9% [Saline Flush] Med 09/30/20 22:50 Active 10 ml FLUSH ASDIRECTED PRN Sodium Chloride 0.9% [Saline Flush] Med 09/30/20 22:50 Active 2.5 ml FLUSH ASDIRECTED PRN Saline Lock Insert [OM.PC] Stat Oth 09/30/20 22:50 Ordered Medication Orders Sodium Chloride (Sodium Chloride 0.9% 10 Ml Syringe) 10 ml FLUSH ASDIRECTED PRN PRN Reason: Keep Vein Open Sodium Chloride (Sodium Chloride 0.9% 2.5 Ml Syringe) 2.5 ml FLUSH ASDIRECTED PRN PRN Reason: Keep Vein Open Labs: Laboratory Tests 09/30/20 09/30/20 09/30/20 Range/Units 22:35 22:35 23:06 WBC 6.38 (4.0-11.0) K/uL RBC 4.23 L (4.30-5.90) M/uL Hgb 14.3 (12.0-16.0) g/dL Hct 40.8 (36.0-46.0) % MCV 96.5 (80.0-98.0) fL MCH 33.8 H (27.0-32.0) pg MCHC 35.0 (31.0-37.0) g/dL RDW Std Deviation 42.2 (28.0-62.0) fl RDW Coeff of Carlos 12 (11.0-15.0) % Plt Count 232 (150-400) K/uL MPV 10.30 (7.40-12.00) fL Neut % (Auto) 35.9 L (48.0-80.0) % Lymph % (Auto) 50.2 H (16.0-40.0) % Sterling % (Auto) 7.4 (0.0-15.0) % Eos % (Auto) 6.0 (0.0-7.0) % Baso % (Auto) 0.5 (0.0-1.5) % Neut # (Auto) 2.3 (1.4-5.7) K/uL Lymph # (Auto) 3.2 H (0.6-2.4) K/uL Sterling # (Auto) 0.5 (0.0-0.8) K/uL Eos # (Auto) 0.4 (0.0-0.7) K/uL Baso # (Auto) 0.0 (0.0-0.1) K/uL Nucleated RBC % 0.0 /100WBC Nucleated RBCs # 0 K/uL INR APTT (18.6-31.3) SEC Sodium 139 (136-145) mmol/L Potassium 3.9 (3.5-5.1) mmol/L Chloride 104 (98-107) mmol/L Carbon Dioxide 27.4 (21.0-32.0) mmol/L BUN 20 H (7.0-18.0) mg/dL Creatinine 0.8 (0.6-1.0) mg/dL Est Cr Clr Drug Dosing 60.31 mL/min Estimated GFR (MDRD) > 60.0 ml/min Glucose 89 (74-106) mg/dL Calcium 9.4 (8.5-10.1) mg/dL Total Bilirubin 0.3 (0.2-1.0) mg/dL AST 35 (15-37) IU/L ALT 55 (14-63) IU/L Alkaline Phosphatase 72 (46-116) U/L Troponin I < 0.050 (0.000-0.056) ng/mL B-Natriuretic Peptide 104 H (<100) PG/ML Total Protein 7.0 (6.4-8.2) g/dL Albumin 3.6 (3.4-5.0) g/dL Globulin 3.4 (2.6-4.0) g/dL Albumin/Globulin Ratio 1.1 (0.9-1.6) 09/30/20 09/30/20 Range/Units 23:06 23:06 WBC (4.0-11.0) K/uL RBC (4.30-5.90) M/uL Hgb (12.0-16.0) g/dL Hct (36.0-46.0) % MCV (80.0-98.0) fL MCH (27.0-32.0) pg MCHC (31.0-37.0) g/dL RDW Std Deviation (28.0-62.0) fl RDW Coeff of Carlos (11.0-15.0) % Plt Count (150-400) K/uL MPV (7.40-12.00) fL Neut % (Auto) (48.0-80.0) % Lymph % (Auto) (16.0-40.0) % Sterling % (Auto) (0.0-15.0) % Eos % (Auto) (0.0-7.0) % Baso % (Auto) (0.0-1.5) % Neut # (Auto) (1.4-5.7) K/uL Lymph # (Auto) (0.6-2.4) K/uL Sterling # (Auto) (0.0-0.8) K/uL Eos # (Auto) (0.0-0.7) K/uL Baso # (Auto) (0.0-0.1) K/uL Nucleated RBC % /100WBC Nucleated RBCs # K/uL INR 1.09 APTT 29.2 (18.6-31.3) SEC Sodium (136-145) mmol/L Potassium (3.5-5.1) mmol/L Chloride (98-107) mmol/L Carbon Dioxide (21.0-32.0) mmol/L BUN (7.0-18.0) mg/dL Creatinine (0.6-1.0) mg/dL Est Cr Clr Drug Dosing mL/min Estimated GFR (MDRD) ml/min Glucose (74-106) mg/dL Calcium (8.5-10.1) mg/dL Total Bilirubin (0.2-1.0) mg/dL AST (15-37) IU/L ALT (14-63) IU/L Alkaline Phosphatase (46-116) U/L Troponin I (0.000-0.056) ng/mL B-Natriuretic Peptide (<100) PG/ML Total Protein (6.4-8.2) g/dL Albumin (3.4-5.0) g/dL Globulin (2.6-4.0) g/dL Albumin/Globulin Ratio (0.9-1.6) Meds: Medications Generic Name Dose Route Start Last Admin Trade Name Freq PRN Reason Stop Dose Admin Sodium Chloride 10 ml 09/30/20 22:50 Sodium Chloride 0.9% 10 Ml Syringe FLUSH ASDIRECTED PRN Keep Vein Open Sodium Chloride 2.5 ml 09/30/20 22:50 Sodium Chloride 0.9% 2.5 Ml Syringe FLUSH ASDIRECTED PRN Keep Vein Open Departure - Departure Time of Disposition: 01:09 Disposition: Home, Self-Care 01 Condition: Good Clinical Impression: Anticoagulated by anticoagulation treatment, Bruising, Paresthesia, Nonspecific chest pain - Discharge Information Instructions: Paresthesia, Nonspecific Chest Pain, Adult, Bleeding Precautions When on Anticoagulant Therapy, Adult Forms: ED Department Discharge Additional Instructions: You were seen and evaluated in the ER today secondary to possible side effects from your anticoagulant. Please make an appointment to see your family doctor the next 1 to 2 days for reevaluation and recommendations regarding changing the particular anticoagulant that you are taking. The following information is given to patients seen in the emergency department who are being discharged to home. This information is to outline your options for follow-up care. We provide all patients seen in our emergency department with a follow-up referral. The need for follow-up, as well as the timing and circumstances, are variable depending upon the specifics of your emergency department visit. If you don't have a primary care physician on staff, we will provide you with a referral. We always advise you to contact your personal physician following an emergency department visit to inform them of the circumstance of the visit and for follow-up with them and/or the need for any referrals to a consulting specialist. The emergency department will also refer you to a specialist when appropriate. This referral assures that you have the opportunity for follow-up care with a specialist. All of these measure are taken in an effort to provide you with optimal care, which includes your follow-up. Under all circumstances we always encourage you to contact your private physician who remains a resource for coordinating your care. When calling for follow-up care, please make the office aware that this follow-up is from your recent emergency room visit. If for any reason you are refused follow-up, please contact the [facility] Emergency Department at and asked to speak to the emergency department charge nurse. [facility] [address] [place] [address] [address] Sepsis Event Note (ED) - Evaluation Sepsis Screening Result: No Definite Risk - Focused Exam Vital Signs: Vital Signs Temp Pulse Resp BP Pulse Ox 10/01/20 00:00 63 16 152/77 H 97 09/30/20 22:35 97.6 F 63 18 176/92 H 98 - My Orders Last 24 Hours: My Active Orders 09/30/20 22:50 Cardiac Monitoring [RC] . DIRECTED EKG Documentation Completion [RC] AM Pulse Oximetry [RC] ASDIRECTED Sodium Chloride 0.9% [Saline Flush] 10 ml FLUSH ASDIRECTED PRN Sodium Chloride 0.9% [Saline Flush] 2.5 ml FLUSH ASDIRECTED PRN Saline Lock Insert [OM.PC] Stat 10/01/20 01:02 TROPONIN I [CHEM] Stat - Assessment/Plan Last 24 Hours: My Active Orders 09/30/20 22:50 Cardiac Monitoring [RC] . DIRECTED EKG Documentation Completion [RC] AM Pulse Oximetry [RC] ASDIRECTED Sodium Chloride 0.9% [Saline Flush] 10 ml FLUSH ASDIRECTED PRN Sodium Chloride 0.9% [Saline Flush] 2.5 ml FLUSH ASDIRECTED PRN Saline Lock Insert [OM.PC] Stat 10/01/20 01:02 TROPONIN I [CHEM] Stat
--- NOTE | 2020-09-30 23:12 | CR ---
HISTORY: Chest pain COMPARISON: Chest two views from 12/16/2019 FINDINGS: A portable erect AP view of the chest was obtained at 22 49 hours. Again seen is fullness of the main pulmonary vessels suggesting pulmonary artery hypertension. The lungs breast remain clear. No focal or diffuse infiltrates are present. The heart remains normal in size. Again seen is a left-sided pacemaker with leads entering the left subclavian vein and terminating in the right atrium, right ventricle, and coronary sinus. The mediastinum is otherwise normal in appearance. The osseous structures are normal in appearance for the patient`s age. IMPRESSION: No active disease seen in the chest. Stable mild fullness of pulmonary vessels suggesting pulmonary artery hypertension. Dictated by Fabian Linda MD @ Sep 30 2020 11:08PM Signed by Dr. Fabian Linda @ Sep 30 2020 11:11PM
[2020-09-30 23:28] LABS: BLOOD UREA NITROGEN,BUN 20 mg/dL (7.0-18.0); CARBON DIOXIDE,CO2 27.4 mmol/L (21.0-32.0); CHLORIDE,CL 104 mmol/L (98-107); GLUCOSE RANDOM 89 mg/dL (74-106); POTASSIUM,K 3.9 mmol/L (3.5-5.1); SODIUM,NA 139 mmol/L (136-145)
[2020-10-01 01:52] VITALS: BP 146/68; PULSE 60
== END 2020-10-01 01:45 | disposition home or self-care (01) ==
LOC: MW.ED 22:34
DX: R07.9 Chest pain, unspecified (principal); R20.2 Paresthesia of skin; M79.81 Nontraumatic hematoma of soft tissue; I48.91 Unspecified atrial fibrillation; I11.0 Hypertensive heart disease with heart failure; I50.9 Heart failure, unspecified; E66.01 Morbid (severe) obesity due to excess calories; Z68.26 Body mass index [BMI] 26.0-26.9, adult; Z79.01 Long term (current) use of anticoagulants; Z88.1 Allergy status to other antibiotic agents; Z88.8 Allergy status to other drugs, medicaments and biological substances; Z79.899 Other long term (current) drug therapy
CPT/HCPCS: 36415; 71045; 71045-26; 80053; 83880; 84484; 85025; 85610; 85730; 93005; 93010; 99283; 99285-25

== ENCOUNTER 2024-04-22 10:54 | Emergency (ER) | payer BC ==
[2024-04-22] MEDS ORDERED: Sodium Chloride 0.9% 2.5 ML Syringe FLUSH PRN (11:11)
[2024-04-22] MEDS ORDERED: Sodium Chloride 0.9% 10 ML Syringe FLUSH PRN (11:11)
[2024-04-22] MEDS: Benzonatate 100 MG Cap PO ONE (11:15)
[2024-04-22 11:17] LABS: BASOPHILS ABSOLUTE AUTO 0.05 K/uL (0.00-0.20); BASOPHILS PERCENT AUTO 0.8 % (0.0-1.0); EOSINOPHILS ABSOLUTE AUTO 0.34 K/uL (0.00-0.45); EOSINOPHILS PERCENT AUTO 5.4 % (0.0-6.0); HEMATOCRIT 40.4 % (37.0-47.0); HEMOGLOBIN 13.8 g/dL (12.0-16.0); IMMATURE GRAN ABSOLUTE AUTO 0.01 K/uL (0.00-0.05); IMMATURE GRAN PERCENT AUTO 0.2 % (0.0-0.4); LYMPHOCYTES ABSOLUTE AUTO 2.24 K/uL (1.00-4.80); LYMPHOCYTES PERCENT AUTO 35.3 % (24.0-44.0); MEAN CORPUSCULAR HEMOGLOBIN 32.2 pg (28.0-32.0); MEAN CORPUSCULAR HGB CONC 34.2 g/dL (32.0-36.0); MEAN CORPUSCULAR VOLUME 94.4 fL (83.0-99.0); MEAN PLATELET VOLUME 8.9 fL (9.4-12.3); MONOCYTES ABSOLUTE AUTO 0.57 K/uL (0.00-0.80); NEUTROPHILS ABSOLUTE AUTO 3.13 K/uL (1.80-7.70); NEUTROPHILS PERCENT AUTO 49.3 % (41.0-71.0); PLATELET COUNT,PLT 271 K/uL (150-400); RED BLOOD CELL COUNT 4.28 M/uL (4.10-5.30); WHITE BLOOD CELL COUNT,WBC 6.34 K/uL (3.9-11.3)
[2024-04-22 11:45] LABS: A/G RATIO 0.9 (0.9-1.6); ALBUMIN 3.8 g/dL (3.4-5.0); BILIRUBIN TOTAL 0.4 mg/dL (0.2-1.0); CALCIUM 9.1 mg/dL (8.5-10.1); CARBON DIOXIDE,CO2 27.8 mmol/L (21.0-32.0); CREATININE 0.9 mg/dL (0.6-1.0); EST CRCL DRUG DOSING (CG) 50.86 mL/min; POTASSIUM,K 3.9 mmol/L (3.5-5.1); PROTEIN TOTAL,TP 7.8 g/dL (6.4-8.2)
[2024-04-22 11:51] VITALS: PULSE 60
[2024-04-22 11:57] LABS: CORONAVIRUS COVID-19 NAA NEGATIVE (NEGATIVE); INFLUENZA A NAA NEGATIVE (NEGATIVE); INFLUENZA B NAA NEGATIVE (NEGATIVE); RESPIRATORY SYNCYTIAL VIR NAA NEGATIVE (NEGATIVE)
[2024-04-22] MEDS: Albuterol 0.083% 2.5 MG/3 ML Neb Soln NEB ONE (12:19)
[2024-04-22 12:41] VITALS: BP 169/91
== END 2024-04-22 13:01 | disposition home or self-care (01) ==
LOC: MW.ED 10:54
DX: J40 Bronchitis, not specified as acute or chronic (principal); I11.0 Hypertensive heart disease with heart failure; I50.9 Heart failure, unspecified; E66.9 Obesity, unspecified; Z88.8 Allergy status to other drugs, medicaments and biological substances; Z79.899 Other long term (current) drug therapy; Z68.34 Body mass index [BMI] 34.0-34.9, adult; Z75.8 Other problems related to medical facilities and other health care
CPT/HCPCS: 0241U; 36415; 71045; 80053; 83880; 84484; 85025; 93005; 94640; 99285; A9270; J7620-GY

== ENCOUNTER 2024-08-17 01:51 | Emergency (ER) | payer BC ==
[2024-08-17 02:09] LABS: BASOPHILS ABSOLUTE AUTO 0.07 K/uL (0.00-0.20); BASOPHILS PERCENT AUTO 0.6 % (0.0-1.0); EOSINOPHILS PERCENT AUTO 4.4 % (0.0-6.0); HEMATOCRIT 43.1 % (37.0-47.0); HEMOGLOBIN 15.4 g/dL (12.0-16.0); IMMATURE GRAN ABSOLUTE AUTO 0.02 K/uL (0.00-0.05); IMMATURE GRAN PERCENT AUTO 0.2 % (0.0-0.4); LYMPHOCYTES ABSOLUTE AUTO 3.64 K/uL (1.00-4.80); LYMPHOCYTES PERCENT AUTO 32.2 % (24.0-44.0); MEAN CORPUSCULAR HEMOGLOBIN 32.4 pg (28.0-32.0); MEAN CORPUSCULAR HGB CONC 35.7 g/dL (32.0-36.0); MEAN CORPUSCULAR VOLUME 90.7 fL (83.0-99.0); MEAN PLATELET VOLUME 8.8 fL (9.4-12.3); NEUTROPHILS ABSOLUTE AUTO 6.19 K/uL (1.80-7.70); NEUTROPHILS PERCENT AUTO 54.6 % (41.0-71.0); PLATELET COUNT,PLT 304 K/uL (150-400); RED BLOOD CELL COUNT 4.75 M/uL (4.10-5.30); WHITE BLOOD CELL COUNT,WBC 11.32 K/uL (3.9-11.3)
[2024-08-17] MEDS: Sodium Chloride 0.9% 10 ML Syringe FLUSH PRN (02:21)
[2024-08-17] MEDS: Sodium Chloride 0.9% 500 ML IV SCH (02:21)
[2024-08-17] MEDS: Sodium Chloride 0.9% 2.5 ML Syringe FLUSH PRN (02:22)
[2024-08-17 02:38] LABS: ALBUMIN 4.4 g/dL (3.4-5.0); BILIRUBIN TOTAL 0.5 mg/dL (0.2-1.0); CALCIUM 10.8 mg/dL (8.5-10.1); CARBON DIOXIDE,CO2 23.1 mmol/L (21.0-32.0); CREATININE 1.4 mg/dL (0.6-1.0); EST CRCL DRUG DOSING (CG) 32.7 mL/min; POTASSIUM,K 3.3 mmol/L (3.5-5.1); PROTEIN TOTAL,TP 8.7 g/dL (6.4-8.2)
[2024-08-17 02:42] LABS: INR 1.38 (0.86-1.11); PTT,PARTIAL THROMBOPLSTIN TIME 50.1 SEC (23.9-30.7)
[2024-08-17] MEDS: VANCOmycin 1.75 GM/350 ML 1.75 GM in Premix Bag 1 BAG IV ONE (03:20)
[2024-08-17] MEDS: Potassium Chloride 20 MEQ Tab.ER PO ONE (04:18)
[2024-08-17] MEDS: Aspirin 325 MG Tab PO ONE (04:18)
[2024-08-17] MEDS: Diltiazem 100 MG in Sodium Chloride 0.9% 100 ML IV SCH (04:29)
[2024-08-17] MEDS: Diltiazem 25 MG/5 ML SDV IVPUSH ONE (04:29)
[2024-08-17] MEDS ORDERED: Iopamidol 755 MG/ML 500 ML Multipack Bottle IVPUSH ONE (05:54)
[2024-08-17 07:13] VITALS: BP 141/91; PULSE 110
[2024-08-17] MEDS ORDERED: SUMAtriptan 6 MG/0.5 ML SDV SUBCUT PRN (07:14)
[2024-08-17] MEDS: Acetaminophen 500 MG Tab PO ONE (07:18)
== END 2024-08-17 07:30 ==
LOC: MW.ED 01:51
DX: I21.4 Non-ST elevation (NSTEMI) myocardial infarction (principal); I11.0 Hypertensive heart disease with heart failure; I50.9 Heart failure, unspecified; E66.9 Obesity, unspecified; Z68.32 Body mass index [BMI] 32.0-32.9, adult; Z88.1 Allergy status to other antibiotic agents; Z88.8 Allergy status to other drugs, medicaments and biological substances; Z79.51 Long term (current) use of inhaled steroids; Z79.01 Long term (current) use of anticoagulants; Z79.899 Other long term (current) drug therapy
CPT/HCPCS: 36415; 71046; 80053; 83605; 83880; 84145; 84484; 85025; 85610; 85730; 87040; 87428; 93005; 96361; 96365; 96366; 99285; A9270; J3372; J7040; 93010; J3490

== ENCOUNTER 2024-10-02 09:21 | Day surgery (SDC) | payer BC, MEDICARE ==
[2024-10-02] MEDS: Lactated Ringers 1,000 ML IV SCH (09:55)
[2024-10-02] MEDS ORDERED: propofoL 500 MG/50 ML 50 ML ONE (11:49)
[2024-10-02] MEDS ORDERED: dexmedeTOMIDine HCl 200 MCG/2 ML SDV ONE (11:53)
[2024-10-02 13:34] VITALS: BP 136/86; PULSE 60
== END 2024-10-02 13:35 | disposition home or self-care (01) ==
LOC: MW.SDS 09:21
PROVIDERS: ATTEND Surgery
DX: D12.2 Benign neoplasm of ascending colon (principal); K31.7 Polyp of stomach and duodenum; K29.51 Unspecified chronic gastritis with bleeding; K21.9 Gastro-esophageal reflux disease without esophagitis; I11.0 Hypertensive heart disease with heart failure; I50.9 Heart failure, unspecified; E78.00 Pure hypercholesterolemia, unspecified; F32.A Depression, unspecified; Z87.891 Personal history of nicotine dependence; Z79.899 Other long term (current) drug therapy; K44.9 Diaphragmatic hernia without obstruction or gangrene
CPT/HCPCS: 43239; 45380; J2704; J7120; 00813